=== PATIENT | female | born 1975 | race Caucasian/White ===

== ENCOUNTER → 2017-09-22 05:36 | Outpatient (CLI) | payer OTHER, SELFPAY ==
--- NOTE | 2017-08-12 11:30 | EKG12_ITS ---
Test Reason : PRE OP Blood Pressure : / mmHG Vent. Rate : 102 BPM Atrial Rate : 102 BPM P-R Int : 158 ms QRS Dur : 078 ms QT Int : 334 ms P-R-T Axes : 060 015 049 degrees QTc Int : 435 ms Sinus tachycardia Possible Left atrial enlargement Possible Lateral infarct (cited on or before 19-OCT-2012) Abnormal ECG Confirmed by SUGAR BARONE ([id number]), video editor JAMAL ADAMS ([id number]) on 08/13/2017 11:38:07 AM Referred By: Irvin Montague Confirmed By:SUGAR BARONE
== END ==
PROVIDERS: Family Provider Internal Medicine; PCP Internal Medicine; Visit Provider Podiatrist
DX: Z01.810 Encounter for preprocedural cardiovascular examination (principal); R00.0 Tachycardia, unspecified; R94.31 Abnormal electrocardiogram [ECG] [EKG]
CPT/HCPCS: 93005

== ENCOUNTER 2018-05-04 13:19 | Emergency (ER) | payer OTHER, SELFPAY ==
[2018-05-04 13:19] VITALS: BP 168/92; PULSE 131; RESP 22; TEMP 36.5; O2SAT 96; BMI 32.5
[2018-05-04 13:27] VITALS: PULSE 125; RESP 26; O2SAT 95
[2018-05-04 13:29] VITALS: O2SAT 95
--- NOTE | 2018-05-04 13:55 | EKG12_ITS ---
Test Reason : CP/SOB Blood Pressure : / mmHG Vent. Rate : 123 BPM Atrial Rate : 123 BPM P-R Int : 156 ms QRS Dur : 084 ms QT Int : 314 ms P-R-T Axes : 069 029 043 degrees QTc Int : 449 ms Sinus tachycardia Possible Lateral infarct , age undetermined Inferior infarct , age undetermined Abnormal ECG Confirmed by RAFAEL JASON, JASON ([id number]), marketing editor JAMAL ADAMS ([id number]) on 05/07/2018 1:06:22 PM Referred By: PARVEZ/ALPHONSE Confirmed By:JASON HALL MD
[2018-05-04 14:08] LABS: Absolute Lymphocyte Count 3.04 X10^3/ul (0.83-4.51); Absolute Neutrophil Count 7.4 X10^3/uL (2.0-7.7); Basophil# 0.07 X10^3/uL; Basophil% 0.6 % (0-1); Eosinophil# 0.33 X10^3/uL; Eosinophils% 2.8 % (0-5); Hematocrit 47.3 % (37-47); Hemoglobin 15.7 g/dl (12.0-15.0); Lymphocyte # 3.04 X10^3/ul (4.0); Lymphocyte % 26.3 % (19-41); Mean Corp Hgb Conc 33.2 g/gl (32-36); Mean Corpuscular Hgb 29.1 pg (27.0-32.0); Mean Corpuscular Volume 87.6 fL (81-99); Mean Platelet Vol. 9.8 fl (6.2-12.0); Monocyte# 0.68 X10^3/uL; Monocyte% 5.9 % (0-10); Neutrophil # 7.44 X10^3/uL (2.7-7.7); Neutrophil % 64.2 % (47-70); Platelet Count 272 K/mm3 (150-450); RBC Distribution Width CV 13.4 % (11.6-14.6); RBC Distribution Width SD 42.7 fl (35.1-43.9); White Blood Count 11.6 K/mm3 (4.4-11.0)
[2018-05-04 14:09] LABS: POSITIVE COUNT NO; POSITIVE DIFFERENTIAL NO; POSITIVE MORPHOLOGY NO
[2018-05-04 14:11] LABS: D-Dimer Quantitative (DVT/PE) 0.44 FEU/ug/m (0.27-0.49)
--- NOTE | 2018-05-04 14:15 | RAD_ITS ---
STUDY: X-RAY CHEST REASON FOR EXAM: Female, 42 years old. Dyspnea and shortness of breath. TECHNIQUE: PA and lateral views of the chest. COMPARISON: None. FINDINGS: EKG markings are seen. Increased markings are seen in the lingular segment of the left upper lobe. Early lingular infiltrate should be ruled out. Follow-up is recommended. There is no demonstrated pleural abnormality. Normal size heart. Normal mediastinum and julia. Normal visualized pulmonary arteries. Normal visualized aortic arch and descending thoracic aorta. Normal visualized thoracic spine. Normal visualized ribs, clavicles, and shoulders. There is no demonstrated abnormality of the visualized soft tissue structures of the upper abdomen. RAD/Chest PA and Lateral IMPRESSION: Findings suggestive of early lingular infiltrate. Electronically Signed: Andrés Li MD at 14:57 EDT Tel [phone], Service support ,
[2018-05-04 14:17] LABS: Anion Gap 6 (5-15); BUN 15 mg/dL (7-18); BUN/Creat Ratio 23.7 RATIO (10-20); Calcium,Total 9.9 mg/dL (8.5-10.1); Chloride 103 mmol/L (98-107); Creatinine, Serum 0.63 mg/dL (0.55-1.02); EST Glomerular Filtration Rate 108 mL/min (>60); Est Glom Filt Rate - Afr Amer 131 mL/min (>60); Estimated Creatinine Clearance 110.81 ml/min; Glucose 101 mg/dL (74-106); Potassium 3.6 mmol/L (3.5-5.1); Sodium Level 138 mmol/L (136-145)
--- NOTE | 2018-05-04 14:21 | ED.VISSUMM ---
- ER Visit Summary Date of Service: 05/04/18 Chief Complaint: Shortness of breath and fast heart rate History of Present Illness: The patient is a 42 F who presents with chest pain palpitations and shortness of breath. Patient states that for the past 2-3 months she has had some chest heaviness. She then had some sharp chest pain components to it. She decreased the amount that she was smoking down to half a pack a day. Today she started to feel her heart beating faster while shopping and she got lightheaded. She went to the pharmacy section of the store and took her blood pressure which she states was 137/100 and her heart rate was 124. She states that all the way here she had dry mouth. She states now she feels squeezing in the chest she tried her albuterol inhaler did not get any relief. She states she has had a thyroid test in the past and that has been negative. She denies any recent surgery. beginning last week she did have a cough has been nonproductive. Physical Examination: Afebrile blood pressure 160/92 in triage heart rate of 125 respirations are 26 pulse ox 95% and afebrile. Gen: Well-nourished well-developed Head: Normocephalic atraumatic Eyes: Perrl EOMI ENT: TMs clear no rhinorrhea moist mucous membranes Neck: Supple no lymphadenopathy no JVD nontender CVS: Regular rate and tachycardic rhythm no murmurs normal S1-S2 Respiratory: No distress clear to auscultation bilaterally chest nontender Abdomen: Soft nontender nondistended normal bowel sounds no masses Back: Nontender Extremity: Nontender no edema Skin: Normal color no rash Neuro: alert orientated ?3 CN II-XII intact normal strength sensation reflexes gait cerebellar Psych: Anxious Test Results: EKG shows a sinus rhythm at a rate of 123. White count 11.6. Chemistries are normal. Troponin is negative. D-dimer negative at 0.44. Chest x-ray showed a possible early lingular infiltrate. Emergency Department Course and Treatment: Patient was observed on the monitor. Heart rate is come down to 106. White count is slightly elevated. X-ray shows a possible early lingular infiltrate. A mucous plug would make sense the sudden onset of shortness of breath. It is reasonable to treat her with some azithromycin for atypical pneumonia. Patient also may require Holter monitor or echocardiogram for further cardiac evaluation if her symptoms continue. Return if worsening or concerns Impression: 1. Sinus tachycardia 2. Dyspnea This note was generated with [employer] dictation software. It may contain incorrect words, spelling, and punctuation that were not noted in review of the chart prior to signing ED Disposition - Plan for ED Patient: Disposition: Home or Assisted Living Chief Complaint: Shortness of Breath Instructions: Walking Pneumonia Prescriptions: Azithromycin [Zithromax Z-Bob] 250 mg PO UD #1 box Referrals: Lizeth Whittington DO [Primary Care Provider] - As soon as possible
[2018-05-04 14:55] LABS: Thyroid Stim Hormone (TSH) 1.29 uIU/mL (0.358-3.74)
[2018-05-04 15:02] VITALS: PULSE 107; RESP 14; O2SAT 98
[2018-05-04 15:32] VITALS: BP 142/78; PULSE 83; RESP 16; O2SAT 98
--- NOTE | 2018-05-05 09:48 | CM.ED ---
ED CALLBACK: Follow-up call placed to patient. Patient states she feels the same. She has not yet filled her prescription, but states she is heading to do so right now. Patient states the soonest her PCP can see her is next Thursday. I encouraged her to start the antibiotic as soon as possible. We discussed that it can take a few days for symptoms to begin resolving. Encouraged patient to come back to ED if symptoms worsen and she's unable to see PCP. Patient states understanding.
== END 2018-05-04 15:33 | disposition home or self-care (01) ==
PROVIDERS: Emergency Provider Emergency Medicine; Family Provider Internal Medicine; PCP Internal Medicine
DX: R00.0 Tachycardia, unspecified (principal); R06.00 Dyspnea, unspecified; R91.8 Other nonspecific abnormal finding of lung field; Z86.73 Personal history of transient ischemic attack (TIA), and cerebral infarction without residual deficits; F17.200 Nicotine dependence, unspecified, uncomplicated
CPT/HCPCS: 71046; 80048; 84443; 84484; 85025; 85379; 93005; 99285; A4216

== ENCOUNTER → 2018-05-12 14:07 | Outpatient (CLI) | payer OTHER, SELFPAY ==
--- NOTE | 2018-05-12 14:15 | CT_ITS ---
STUDY: CTA CHEST REASON FOR EXAM: Female, 42 years old. Possible pulmonary embolism. RADIATION DOSAGE (If Supplied By Facility): CTDIvol = ( 14.89 ) mGy, DLP = ( 762.85 ) mGycm TECHNIQUE: The examination was performed with the intravenous administration of 100CC ml of Isovue 370 contrast material. Post-processing of the angiographic images was performed, with multiplanar reformation and 3D reconstruction. Individualized dose optimization techniques were used for this CT. COMPARISON: None. FINDINGS: Nonocclusive intraluminal filling defects are seen in the branches of the both right and upper lobe pulmonary arteries in keeping with the pulmonary embolism. Normal thoracic aorta and visualized great vessels. There is no demonstrated aortic dissection. Normal heart and pericardium. Normal mediastinum. Normal hilar regions. Normal visualized trachea and bronchi. The lungs are well expanded. Normal pulmonary parenchyma. Normal pleura. Normal chest wall structures. There are degenerative changes of thoracic spine. Small sliding hiatal hernia. CT/CTA Chest W/WO Contrast IMPRESSION: Findings incomplete with multiple nonocclusive pulmonary emboli in branches of the right and left upper lobe pulmonary arteries. Electronically Signed: Andrés Li MD at 15:13 EDT Tel [phone], Service support ,
== END ==
PROVIDERS: Family Provider Internal Medicine; PCP Internal Medicine; Referring Provider Internal Medicine; Visit Provider Internal Medicine
DX: R93.89 Abnormal findings on diagnostic imaging of other specified body structures (principal); R42 Dizziness and giddiness
CPT/HCPCS: 71275; 93225; 93226; Q9967

== ENCOUNTER 2018-05-12 19:01 | Emergency (ER) | payer OTHER, SELFPAY ==
[2018-05-12 19:02] VITALS: BP 148/104; BP 172/108; PULSE 115; PULSE 123; RESP 19; TEMP 36.8; O2SAT 96; BMI 34.4
--- NOTE | 2018-05-12 19:23 | EKG12_ITS ---
Test Reason : CP Blood Pressure : / mmHG Vent. Rate : 115 BPM Atrial Rate : 115 BPM P-R Int : 160 ms QRS Dur : 084 ms QT Int : 328 ms P-R-T Axes : 062 025 037 degrees QTc Int : 453 ms Sinus tachycardia Possible Anterolateral infarct , age undetermined Abnormal ECG Confirmed by MEHUL JASON, RIMA ([id number]), editorial intern JAMAL ADAMS ([id number]) on 05/19/2018 2:25:35 PM Referred By: Lizeth Whittington Confirmed By:RIMA CARVER MD
--- NOTE | 2018-05-12 19:28 | US_ITS ---
STUDY: VENOUS DOPPLER ULTRASOUND - BILATERAL LOWER EXTREMITIES REASON FOR EXAM: Female, 42 years old. PE, chest pain TECHNIQUE: Ultrasound evaluation of the deep vein system to include chambers-scale imaging and compression was performed. Chambers-scale imaging and Doppler sonographic evaluation, including duplex spectral analysis and qualitative color flow sonography, was performed. COMPARISON: None. FINDINGS: RIGHT LEG Common Femoral Vein: Normal compression, spontaneity and augmentation. Normal color Doppler. Common Femoral Vein/Greater Saphenous Junction: Normal compression. Femoral Proximal: Normal compression. Femoral Middle: Normal compression, spontaneity and augmentation. Normal color Doppler. Femoral Distal: Normal compression. Popliteal Vein: Normal compression, spontaneity and augmentation. Normal color Doppler. Posterior Tibial Vein: Normal compression. Peroneal Vein: Normal compression. LEFT LEG Common Femoral Vein: Normal compression, spontaneity and augmentation. Normal color Doppler. Common Femoral Vein/Greater Saphenous Junction: Normal compression. Femoral Proximal: Normal compression. Femoral Middle: Normal compression, spontaneity and augmentation. Normal color Doppler. Femoral Distal: Normal compression. Popliteal Vein: Normal compression, spontaneity and augmentation. Normal color Doppler. Posterior Tibial Vein: Normal compression. Peroneal Vein: Normal compression. US/Venous Duplex Imag/Mariusz Extrem IMPRESSION: Normal venous Doppler ultrasound of the bilateral lower extremities. Electronically Signed: Nasir Coppola DO at 20:15 EDT Tel [phone], Service support ,
[2018-05-12 19:31] VITALS: O2SAT 94
[2018-05-12 19:39] LABS: Absolute Lymphocyte Count 3.67 X10^3/ul (0.83-4.51); Absolute Neutrophil Count 9.8 X10^3/uL (2.0-7.7); Basophil# 0.06 X10^3/uL; Basophil% 0.4 % (0-1); Eosinophil# 0.31 X10^3/uL; Eosinophils% 2.1 % (0-5); Hematocrit 45.3 % (37-47); Hemoglobin 15.3 g/dl (12.0-15.0); Lymphocyte # 3.67 X10^3/ul (4.0); Lymphocyte % 24.9 % (19-41); Mean Corp Hgb Conc 33.8 g/gl (32-36); Mean Corpuscular Hgb 29.4 pg (27.0-32.0); Mean Corpuscular Volume 86.9 fL (81-99); Mean Platelet Vol. 9.9 fl (6.2-12.0); Monocyte# 0.83 X10^3/uL; Monocyte% 5.6 % (0-10); Neutrophil # 9.81 X10^3/uL (2.7-7.7); Neutrophil % 66.8 % (47-70); POSITIVE COUNT NO; POSITIVE DIFFERENTIAL NO; POSITIVE MORPHOLOGY NO; Platelet Count 275 K/mm3 (150-450); RBC Distribution Width CV 13.2 % (11.6-14.6); RBC Distribution Width SD 41.7 fl (35.1-43.9); Red Blood Count 5.21 M/mm3 (4.2-5.4); White Blood Count 14.7 K/mm3 (4.4-11.0)
[2018-05-12 19:40] LABS: International Normalized Ratio 0.9; Prothrombin Time (Protime)PT. 12.6 SECONDS (11.7-14.9)
[2018-05-12 19:41] LABS: Partial Thromboplast Time 35.2 Seconds (24.1-36.2)
[2018-05-12 19:50] LABS: Anion Gap 9 (5-15); BUN 12 mg/dL (7-18); BUN/Creat Ratio 21.4 RATIO (10-20); Calcium,Total 9.2 mg/dL (8.5-10.1); Chloride 105 mmol/L (98-107); Creatinine, Serum 0.56 mg/dL (0.55-1.02); EST Glomerular Filtration Rate 125 mL/min (>60); Est Glom Filt Rate - Afr Amer 151 mL/min (>60); Estimated Creatinine Clearance 120.01 ml/min; Glucose 107 mg/dL (74-106); Potassium 3.7 mmol/L (3.5-5.1); Sodium Level 140 mmol/L (136-145)
[2018-05-12 19:58] LABS: Pregnancy, Serum, hCG Quali. NEGATIVE Negative (0-9 Nonpreg)
[2018-05-12 20:13] VITALS: BP 149/99; PULSE 105; RESP 18; O2SAT 94
[2018-05-12 21:55] VITALS: BP 143/93; PULSE 103; RESP 18; O2SAT 93
--- NOTE | 2018-05-12 21:55 | ED.VISSUMM ---
- ER Visit Summary Date of Service: 05/12/18 Chief Complaint: PE History of Present Illness: The patient is a 42 F referred by her PCP for bilateral pulmonary emboli. Patient was seen for chest pain and shortness of breath. She had a CTA done today. Based on the results, she was referred directly to the emergency department. She does have some chest tightness and mild shortness of breath. She has a history of MS, fibromyalgia, and Coy's disease. She is a smoker. Denies hormone medications. Denies recent surgery or immobilization. Denies any history of PE or DVT. Physical Examination: Blood pressure 149/99. Heart rate 105. Afebrile. No acute distress. Sitting and breathing comfortably. Heart tachycardic but regular. Lungs clear. Abdomen soft. Calves soft and supple. Test Results: EKG showed sinus rhythm at a rate of 115. Ultrasound of her lower extremities showed nothing acute. White count 14.7. Glucose 107. Coags normal. Troponin normal. Previous test negative. Emergency Department Course and Treatment: Patient was discussed with Dr. Whittington. Patient would like to go home. I believe she is appropriate for outpatient therapy and her PCP agreed. PESI is very low risk. Her PCP recommended treatment with Eliquis. She has an echocardiogram scheduled for tomorrow. Her vitals are tachycardic but otherwise normal. Risks of PE were discussed. Patient will return for new or worsening issues. Risks of bleeding were discussed. She will not take part in any risky activities. No anti-inflammatories. Return right away for trauma or any bleeding. Treatment Plan: As above Disposition: Discharged Impression: 1. Bilateral pulmonary emboli This note was generated with [employer] dictation software. It may contain incorrect words, spelling, and punctuation that were not noted in review of the chart prior to signing ED Disposition - Plan for ED Patient: Chief Complaint: Chest Pain Referrals: Lizeth Whittington DO [Primary Care Provider] -
--- NOTE | 2018-05-12 21:58 | ED.DCSUM_ITS ---
- ER Visit Summary Date of Service: 05/12/18 Chief Complaint: PE History of Present Illness: The patient is a 42 F referred by her PCP for bilateral pulmonary emboli. Patient was seen for chest pain and shortness of breath. She had a CTA done today. Based on the results, she was referred directly to the emergency department. She does have some chest tightness and mild shortness of breath. She has a history of MS, fibromyalgia, and Coy's disease. She is a smoker. Denies hormone medications. Denies recent surgery or immobilization. Denies any history of PE or DVT. Physical Examination: Blood pressure 149/99. Heart rate 105. Afebrile. No acute distress. Sitting and breathing comfortably. Heart tachycardic but regular. Lungs clear. Abdomen soft. Calves soft and supple. Test Results: EKG showed sinus rhythm at a rate of 115. Ultrasound of her lower extremities showed nothing acute. White count 14.7. Glucose 107. Coags normal. Troponin normal. Previous test negative. Emergency Department Course and Treatment: Patient was discussed with Dr. Whititngton. Patient would like to go home. I believe she is appropriate for outpatient therapy and her PCP agreed. PESI is very low risk. Her PCP recommended treatment with Eliquis. She has an echocardiogram scheduled for tomorrow. Her vitals are tachycardic but otherwise normal. Risks of PE were discussed. Patient will return for new or worsening issues. Risks of bleeding were discussed. She will not take part in any risky activities. No anti- inflammatories. Return right away for trauma or any bleeding. Treatment Plan: As above Disposition: Discharged Impression: 1. Bilateral pulmonary emboli This note was generated with [employer] dictation software. It may contain incorrect words, spelling, and punctuation that were not noted in review of the chart prior to signing ED Disposition - Plan for ED Patient: Chief Complaint: Chest Pain Referrals: Lizeth Whittington DO [Primary Care Provider] -
--- NOTE | 2018-05-12 21:58 | ED.DEP ---
ED Disposition - Plan for ED Patient: Chief Complaint: Chest Pain Instructions: Pulmonary Embolism Prescriptions: Apixaban [Eliquis] 10 mg PO BID 7 Days #74 tab Referrals: Lizeth Whittington DO [Primary Care Provider] -
[2018-05-12 22:07] VITALS: BP 144/90; PULSE 106; RESP 20; O2SAT 97
[2018-05-12] MEDS: APIXABAN 5 MG TABLET 10 MG PO (22:11)
== END 2018-05-12 22:14 | disposition home or self-care (01) ==
LOC: ED 19:32
PROVIDERS: Emergency Provider Emergency Medicine; Family Provider Internal Medicine; PCP Internal Medicine
DX: I26.99 Other pulmonary embolism without acute cor pulmonale (principal); G35 Multiple sclerosis; M79.7 Fibromyalgia; E27.1 Primary adrenocortical insufficiency; F17.210 Nicotine dependence, cigarettes, uncomplicated
CPT/HCPCS: 80048; 84484; 84703; 85025; 85610; 85730; 93005; 93970; 99285; A4216

== ENCOUNTER → 2018-05-13 11:00 | Outpatient (CLI) | payer OTHER, SELFPAY ==
--- NOTE | 2018-05-13 11:02 | ECHOCS_ITS ---
Reason For Study: Murmur Procedure This was a 2D Doppler, Color Flow transthoracic echocardiogram. The study was technically limited. Contrast injection was performed. Exam performed in department. Left Ventricle Normal LV size. Mild concentric left ventricular hypertrophy. Left ventricular systolic function is hyperdynamic. The estimated ejection fraction is 75 %. No evidence for diastolic dysfunction. No regional wall motion abnormalities noted. Right Ventricle Normal RV size. Normal systolic function. Atria Normal left atrium. Normal right atrium. No doppler evidence for ASD. Bubble contrast study negative for right to left interatrial shunt. Mitral Valve There is no mitral annular calcification. Normal mitral valve. Trivial mitral valve insufficiency. Tricuspid Valve Normal tricuspid valve. Trivial tricuspid valve insufficiency. Unable to estimate RV systolic pressure/pulmonary artery pressure due to technically difficult study. Aortic Valve Trisinus/trileaflet aortic valve. Mild focal aortic valve thickening. Pulmonic Valve The pulmonic valve is not well visualized. Trivial pulmonic valve insufficiency. Great Vessels Normal sized aortic root. Pericardium/Pleural No pericardial effusion. Medication 22 gauge I.V. with prn adaptor inserted into right arm. Diluted definity 2ml given slow IV push to enhance endocardial definition. Performed a rapid injection of agitated mix of 9 cc saline and 1cc air to assess for atrial septal defect. MMode/2D Measurements & Calculations LVIDd: 3.5 cm IVSd: 1.4 cm Ao root diam: 3.1 cm LVIDs: 2.2 cm LVPWd: 1.4 cm FS: 37.4 % LAV(MOD-bp): 57.7 ml LVAd ap4: 25.4 cm2 SV(MOD-sp4): 57.0 ml LAV(MOD-bp) Indexed: 28.7 ml/m2 EDV(MOD-sp4): 72.1 ml LAV(MOD-sp2): 63.7 ml EDV(sp4-el): 72.9 ml LAV(MOD-sp4): 51.6 ml LVAs ap4: 9.4 cm2 ESV(MOD-sp4): 15.2 ml ESV(sp4-el): 14.8 ml EF(MOD-sp4): 79.0 % EF(sp4-el): 79.7 % SV(sp4-el): 58.1 ml LA A4 area: 18.3 cm2 RA A4 area: 13.8 cm2 Time Measurements MV dec time: 0.18 sec Doppler Measurements & Calculations MV E max gonzález: 71.2 cm/sec Lat Peak E' González: 12.4 cm/sec Med Peak E' González: 7.3 cm/sec MV A max gonzález: 71.2 cm/sec E/E' lat: 5.8 E/E' med: 9.7 MV E/A: 1.0 MV V2 max: 93.8 cm/sec MV P1/2t max gonzález: 92.5 cm/sec Ao V2 max: 172.7 cm/sec MV max P.5 mmHg MV P1/2t: 43.0 msec Ao max P.9 mmHg MV V2 mean: 55.6 cm/sec MV dec slope: 630.1 cm/sec2 Ao V2 mean: 120.8 cm/sec MV mean P.5 mmHg MVA(P1/2t): 5.1 cm2 Ao mean P.6 mmHg MV V2 VTI: 16.6 cm Ao V2 VTI: 32.7 cm LV V1 max: 162.9 cm/sec PA V2 max: 131.9 cm/sec LV V1 max P.6 mmHg LV V1 mean P.6 mmHg LV V1 mean: 98.9 cm/sec LV V1 VTI: 30.2 cm Interpretation Summary The study was technically limited. Contrast injection was performed. Left ventricular systolic function is hyperdynamic. The estimated ejection fraction is 75 %. Mild concentric left ventricular hypertrophy. Trivial mitral valve insufficiency. Trivial tricuspid valve insufficiency. Mild focal aortic valve thickening. Trivial pulmonic valve insufficiency. Unable to estimate RV systolic pressure/pulmonary artery pressure due to technically difficult study. No evidence for diastolic dysfunction. Bubble contrast study negative for right to left interatrial shunt. Ordering Physician: Lizeth Whittington Referring Physician: Lizeth Whittington Performed By: Greg Juarez RCS
== END ==
LOC: CVS 11:01
PROVIDERS: Family Provider Internal Medicine; PCP Internal Medicine; Referring Provider Internal Medicine; Visit Provider Internal Medicine
DX: R01.1 Cardiac murmur, unspecified (principal)
CPT/HCPCS: 93306; Q9957; A4216; C8929

== ENCOUNTER → 2018-05-28 11:54 | Outpatient (CLI) | payer OTHER, SELFPAY ==
--- NOTE | 2018-05-28 12:03 | BI_ITS ---
MAMMOGRAPHY - BILATERAL SCREENING REASON FOR EXAM: Female, 42 years old. Routine annual screening examination. PERTINENT HISTORY: Aunts with breast cancer. TECHNIQUE: Digital bilateral breast colby (3D mammographic acquisition) in the CC and MLO projections. 2-D mediolateral oblique (MLO) and craniocaudad (CC) views of both breasts were obtained. CAD: Full Field Digital Mammography with Computer Added Detection was performed. COMPARISON: Comparison is made with prior study dated October 23, 2014. FINDINGS: Breast Composition: The breasts are almost entirely fatty. There are no dominant masses or suspicious calcifications. Stable small benign-appearing bilateral axillary lymph nodes. No other significant abnormalities are identified. There has been no significant change since the prior study. BI/SCREENING MAMM (CAD), BILAT IMPRESSION: Stable bilateral screening mammogram. Yearly follow-up mammogram recommended. (A) ASSESSMENT CATEGORY: BIRADS Category 2: Benign. A letter regarding these results will be sent to the patient by the facility within 30 days. Approximately 10% of breast cancers are not detected by mammography. A normal mammogram should not delay biopsy of a clinically suspicious abnormality. [id number] Electronically Signed: Andrés Li MD at 12:44 EST Tel [phone], Service support ,
== END ==
LOC: OPBI 11:55
PROVIDERS: Family Provider Internal Medicine; PCP Internal Medicine; Referring Provider Internal Medicine; Visit Provider Internal Medicine
DX: Z12.31 Encounter for screening mammogram for malignant neoplasm of breast (principal)
CPT/HCPCS: 77063; 77067

== ENCOUNTER → 2018-05-31 16:05 | Outpatient (CLI) | payer OTHER, SELFPAY ==
[2018-05-12 19:02] VITALS: BMI 34.4
--- NOTE | 2018-05-31 16:11 | RAD_ITS ---
STUDY: X-RAY CHEST REASON FOR EXAM: Female, 42 years old. Cough TECHNIQUE: 2 views COMPARISON: 05/04/2018 FINDINGS: The lungs are clear and expanded. There is no demonstrated pleural abnormality. Normal size heart. Normal mediastinum and julia. Normal visualized pulmonary arteries. Normal visualized aortic arch and descending thoracic aorta. Normal visualized thoracic spine. Normal visualized ribs, clavicles, and shoulders. There is no demonstrated abnormality of the visualized soft tissue structures of the upper abdomen. RAD/Chest PA and Lateral IMPRESSION: Normal x-ray examination of the chest. No acute findings in the lungs Electronically Signed: Jose Meade MD at 6:59 EST Tel , Service support ,
== END ==
LOC: MTRAD 16:06
PROVIDERS: Family Provider Internal Medicine; PCP Internal Medicine; Referring Provider Nurse Practitioner Gerontology; Visit Provider Nurse Practitioner Gerontology
DX: R05 Cough (principal)
CPT/HCPCS: 71046

== ENCOUNTER 2018-06-26 20:36 | Observation (INO) | payer OTHER, SELFPAY ==
[2018-06-26 20:36] VITALS: BP 132/83; PULSE 75; RESP 18; TEMP 36.3; O2SAT 96; BMI 35.8
[2018-06-26 21:02] VITALS: BP 125/80; PULSE 70; RESP 14; O2SAT 96
--- NOTE | 2018-06-26 21:34 | RAD_ITS ---
STUDY: X-RAY CHEST REASON FOR EXAM: Female, 42 years old. Chest pain, lower extremity edema TECHNIQUE: AP COMPARISON: 05/31/2018 FINDINGS: The lungs are clear and expanded. There is no demonstrated pleural abnormality. Normal size heart. Normal mediastinum and julia. Normal visualized pulmonary arteries. Normal visualized aortic arch and descending thoracic aorta. No acute bony process. There is no demonstrated abnormality of the visualized soft tissue structures of the upper abdomen. RAD/Chest 1 View (Portable) IMPRESSION: Stable, nonacute portable x-ray examination of the chest. Electronically Signed: Nik Ferrell MD at 21:58 EST , Service support ,
--- NOTE | 2018-06-26 21:34 | EKG12_ITS ---
Test Reason : LEG PAIN Blood Pressure : / mmHG Vent. Rate : 076 BPM Atrial Rate : 076 BPM P-R Int : 172 ms QRS Dur : 090 ms QT Int : 416 ms P-R-T Axes : 064 035 047 degrees QTc Int : 468 ms Normal sinus rhythm Possible Left atrial enlargement Possible Lateral infarct , age undetermined Inferior infarct , age undetermined Abnormal ECG Confirmed by MEHUL JASON, RIMA ([id number]), supervising editor trailer JAMAL ADAMS ([id number]) on 06/30/2018 3:31:13 PM Referred By: CARMEN Confirmed By:RIMA CARVER MD
[2018-06-26] MEDS: Aspirin 325 MG Tablet PO (21:51)
--- NOTE | 2018-06-26 22:15 | ED.DCSUM_ITS ---
- ER Visit Summary Date of Service: 06/26/18 Chief Complaint: Left lower extremity pain History of Present Illness: The patient is a 42 F presenting with left lower extremity pain. She states this started yesterday. She has pain in the back of her left thigh. She does not recall any injury. She also notes she has had intermittent chest pain and shortness of breath with exertion over the past 1.5 weeks. She has a history of bilateral PE in April. She was started on Eliquis at that time. Physical Examination: Vitals are stable. Patient is afebrile. Alert no acute distress. HEENT exam is unremarkable. Neck is supple. Lungs are clear and equal bilaterally. Heart is regular rate and rhythm. Abdomen is soft nontender nondistended. Extremities are unremarkable. Skin is warm and dry. No focal neurologic deficit. Remainder of exam is unremarkable. Emergency Department Course and Treatment: EKG is sinus rate 76, unchanged from previous. Chest x-ray shows no acute process. Patient states she had an allergic reaction to CTA of her chest which caused her throat to close. She does not recall the entire incident. While in the emergency department her pulse ox has decreased to 87-88% on room air. We are unable to obtain an ultrasound at this time of day. CBC, chemistries unremarkable. Troponin is negative. Due to her hypoxia, inability to obtain CTA or ultrasound at this time, will discuss with hospitalist for observation for VQ scan. Disposition: Observation Impression: Chest pain, hypoxia, history of PE This note was generated with [employer] dictation software. It may contain incorrect words, spelling, and punctuation that were not noted in review of the chart prior to signing ED Disposition - Plan for ED Patient: Chief Complaint: Lower Extremity Injury Referrals: Lizeth Whittington DO [Primary Care Provider] -
[2018-06-26 22:27] LABS: Absolute Neutrophil Count 4.2 X10^3/uL (2.0-7.7); Basophil# 0.07 X10^3/uL; Basophil% 0.8 % (0-1); Eosinophil# 0.34 X10^3/uL; Eosinophils% 4.1 % (0-5); Hematocrit 40.4 % (37-47); Hemoglobin 13.4 g/dl (12.0-15.0); Lymphocyte % 35.1 % (19-41); Mean Corp Hgb Conc 33.2 g/gl (32-36); Mean Corpuscular Hgb 28.8 pg (27.0-32.0); Mean Corpuscular Volume 86.9 fL (81-99); Mean Platelet Vol. 9.4 fl (6.2-12.0); Monocyte# 0.76 X10^3/uL; Monocyte% 9.2 % (0-10); Neutrophil # 4.19 X10^3/uL (2.7-7.7); Neutrophil % 50.7 % (47-70); Platelet Count 263 K/mm3 (150-450); RBC Distribution Width CV 12.9 % (11.6-14.6); RBC Distribution Width SD 41.4 fl (35.1-43.9); Red Blood Count 4.65 M/mm3 (4.2-5.4); White Blood Count 8.3 K/mm3 (4.4-11.0)
[2018-06-26 22:29] LABS: POSITIVE COUNT NO; POSITIVE DIFFERENTIAL NO; POSITIVE MORPHOLOGY NO
[2018-06-26 22:34] LABS: Anion Gap 9 (5-15); BUN 15 mg/dL (7-18); BUN/Creat Ratio 25.6 RATIO (10-20); Calcium,Total 8.8 mg/dL (8.5-10.1); Chloride 108 mmol/L (98-107); Creatinine, Serum 0.59 mg/dL (0.55-1.02); EST Glomerular Filtration Rate 118 mL/min (>60); Est Glom Filt Rate - Afr Amer 143 mL/min (>60); Estimated Creatinine Clearance 113.91 ml/min; Glucose 105 mg/dL (74-106); Potassium 3.5 mmol/L (3.5-5.1); Sodium Level 144 mmol/L (136-145)
[2018-06-27] VITALS (12 sets, daily range): BP systolic 118–139; BP diastolic 74–84; PULSE 65–91; RESP 14–18; TEMP 36.3–36.8; O2SAT 93–98; BMI 35.4
--- NOTE | 2018-06-27 02:59 | EKG12_ITS ---
Test Reason : ADM EKG Blood Pressure : / mmHG Vent. Rate : 075 BPM Atrial Rate : 075 BPM P-R Int : 166 ms QRS Dur : 088 ms QT Int : 416 ms P-R-T Axes : 059 015 056 degrees QTc Int : 464 ms Normal sinus rhythm Possible Lateral infarct (cited on or before 19-OCT-2012) Inferior infarct , age undetermined Abnormal ECG When compared with ECG of 12-MAY-2018 19:10, Vent. rate has decreased BY 40 BPM Questionable change in initial forces of Anterior leads Confirmed by MEHUL JASON, RIMA ([id number]), editorial project manager JAMAL ADAMS ([id number]) on 06/30/2018 4:00:29 PM Referred By: CLAUDIA Confirmed By:RIMA CARVER MD
--- NOTE | 2018-06-27 05:22 | HP.PCM_ITS ---
Problem List (1) Pulmonary emboli Status: Acute (2) Left leg pain Status: Acute (3) Chest pain Status: Acute History of Present Illness Date of Admission: 06/27/18 Chief Complaint: Left leg pain The patient is a 42 year old female w/ h/o PE is admitted for left leg pain. She has sudden onset of left upper thigh pain that started today. Pain is moderate and constant. Pain is dull aching and is not associated with movement. No h/o injury. Nothing improved or worsened her pain. She also noted occasional chest pain and SOB in the past 2 weeks. Nothing makes her chest pain worse or better. Her chest pain is not associated with exertion. Past Medical History Allergies acetaminophen [From Tylenol] Allergy (Verified 06/26/18 20:40) Anaphylaxis latex Allergy (Verified 06/26/18 20:40) Rash sulfamethoxazole [From Bactrim] Allergy (Verified 06/26/18 20:40) Hives trimethoprim [From Bactrim] Allergy (Verified 06/26/18 20:40) Hives Iodinated Contrast- Oral and IV Dye [CONTRASTS] Adverse Reaction (Verified 06/26/18 20:40) Other sodium phenothol Allergy (Uncoded 06/26/18 20:40) Anaphylaxis Home Medications: Ambulatory Orders Medication Instructions Recorded Multivitamin [Multiple Vitamins] 1 tab PO DAILY 05/12/18 Apixaban [Eliquis] 1 tab PO BID 06/26/18 Lives: Spouse/ Significant Other Smoking Status: Former smoker Tobacco Use: Non-smoker Alcohol: None Drugs: None Review of Systems Constitutional: Denies: Chills, Fever, Weight Change HEENT: Denies: Head Aches, Sinus Congestion, Sinus Drainage Cardiovascular: Reports: Chest Pain. Denies: Palpitations Respiratory: Denies: Cough, Shortness of breath at rest, Sputum production Gastrointestinal: Denies: Abdominal Pain, Nausea, Vomiting Genitourinary: Denies: Dysuria Musculoskeletal: Denies: Joint Pain, Joint Tenderness Skin: Denies: Rash, Wounds Neurological: Denies: Numbness, Tingling, Focal weakness Psychiatric: Denies: Anxiety, Depression, Homicidal Ideations, Suicidal Ideations Hematologic/ Lymphatic: Denies: Easy Bruising, Easy Bleeding VTE Information - Inpt Only VTE Present on Admission: No VTE Mechan Device Prophylaxis: SCD's VTE Pharm Prophylaxis ordered?: Yes Patient Problems: Active and Suspected Problems Pulmonary emboli (Acute) Left leg pain (Acute) Chest pain (Acute) - Physical Exam General: Alert, Oriented x3, Cooperative HEENT: Atraumatic, PERRLA, EOMI, Normocephalic Neck: Supple, No JVD, Negative Carotid Bruits Lungs: Clear to auscultation, Normal air movement Cardiovascular: Regular rate, No murmurs Abdomen: Bowel Sounds Present, Soft, Non Tender Extremities: No edema, Capillary Refill Less than 3 Seconds Skin: No rashes, No breakdown Musculoskeletal: No Tenderness to Palpation of Joints or Extremities Neurological: Cranial nerves II-XII grossly intact Psych/Mental Status: Normal Affect, Appropriate Vital Signs Temp Pulse Resp BP Pulse Ox 97.4 F L 78 18 127/82 H 93 06/27/18 01:37 06/27/18 03:07 06/27/18 01:37 06/27/18 01:37 06/27/18 01:37 Oxygen Delivery Method Room Air Weight: 99.4 kg Body Mass Index (BMI) 35.4 Laboratory Tests Past 24 Hrs 06/26/18 06/26/18 06/27/18 22:10 22:10 03:15 WBC 8.3 RBC 4.65 Hgb 13.4 Hct 40.4 MCV 86.9 MCH 28.8 MCHC 33.2 RDW 12.9 RDW Differential 41.4 Plt Count 263 MPV 9.4 Immature Gran % (Auto) 0.100 Neut % (Auto) 50.7 Lymph % (Auto) 35.1 [place] % (Auto) 9.2 Eos % (Auto) 4.1 Baso % (Auto) 0.8 Absolute Neuts (auto) 4.2 Absolute Lymphs (auto) 2.90 Total Counted Not Reportable Sodium 144 Potassium 3.5 Chloride 108 H Carbon Dioxide 27.0 Anion Gap 9 BUN 15 Creatinine 0.59 Estim Creat Clear Calc 113.91 Est GFR (MDRD) Af Amer 143 Est GFR (MDRD) Non-Af 118 BUN/Creatinine Ratio 25.6 H Glucose 105 Calcium 8.8 Troponin I < 0.015 < 0.015 Assessment/Plan All Active Problems Pulmonary emboli (Acute) Left leg pain (Acute) Chest pain (Acute) 42 year old female w/ h/o PE is admitted for left leg pain. 1) Left leg pain: Will r/o DVT. Will get doppler. Supportive care. 2) Chest pain: Likely MSK. Will get serial trops. Will also get ECHO given h/o PE to r/o right heart strain. 3) H/o PE: Will resume eliquis. If DVT, will consider transition to coumadin. Code Visit OBSV E&M: 95765 Initial observation care L2
--- NOTE | 2018-06-27 05:34 | VDLE_ITS ---
Reason For Study: PULM EMB RIGHT LEFT GSV is normal. GSV is normal. CFV is compressible, spontaneous, phasic, CFV is compressible, spontaneous, phasic, competent and demonstrates normal competent, and demonstrates normal augmentation. augmentation. FV is compressible, spontaneous, phasic, FV is compressible, spontaneous, phasic, competent and demonstrates normal competent and demonstrates normal augmentation. augmentation. POP V is compressible, spontaneous, phasic, POP V is compressible, spontaneous, phasic, competent and demonstrates normal competent and demonstrates normal augmentation. augmentation. T/P Trunk is compressible. T/P Trunk is compressible. PTV is compressible. PTV is compressible. RT PerV is compressible. LT PerV is compressible. Procedure Exam performed portable in patient room. A preliminary report was called and/or faxed to [facility]. Interpretation Summary Deep veins of the lower extremities are bilaterally patent and compressible segmentally. There is no evidence of deep vein thrombosis on either side. Valvular competence appears intact within the proximal deep venous systems bilaterally. The greater saphenous veins appear bilaterally patent and compressible segmentally. Ordering Physician: Peewee Echevarria Referring Physician: CHERELLE WILKS Performed By: Palak Ramírez, STELLA, RVT
[2018-06-27 06:34] LABS: Anion Gap 7 (5-15); BUN 11 mg/dL (7-18); BUN/Creat Ratio 23.3 RATIO (10-20); Chloride 109 mmol/L (98-107); Creatinine, Serum 0.47 mg/dL (0.55-1.02); EST Glomerular Filtration Rate 151 mL/min (>60); Est Glom Filt Rate - Afr Amer 183 mL/min (>60); Estimated Creatinine Clearance 142.99 ml/min; Glucose 106 mg/dL (74-106); Potassium 4.1 mmol/L (3.5-5.1); Sodium Level 142 mmol/L (136-145)
[2018-06-27] MEDS: Multivitamins,Therapeutic Tablet 1 TABLET PO (08:41)
[2018-06-27] MEDS: APIXABAN 5 MG TABLET PO ×2 (08:41→21:27)
--- NOTE | 2018-06-27 12:58 | PCM.PN.HOSP ---
Patient Problems: Active and Suspected Problems Pulmonary emboli (Acute) Left leg pain (Acute) Chest pain (Acute) Subjective: Patient was seen and examined. Denies any complains. Waiting on doppler USG of legs and V/Q scan. Reported negative experience with CTA chest Vitals/I&O's: Vital Signs Temp Pulse Resp BP Pulse Ox 97.9 F 90 14 123/75 H 95 06/27/18 08:35 06/27/18 11:00 06/27/18 08:35 06/27/18 08:35 06/27/18 08:35 Oxygen Delivery Method Room Air Weight: 99.4 kg Body Mass Index (BMI) 35.4 Intake and Output for Last 24 Hours 06/25/18 06/26/18 06/27/18 23:59 23:59 23:59 Intake Total 240 / 240 Balance 240 / 240 General: Alert, Oriented x3, Cooperative HEENT: Atraumatic, PERRLA, EOMI, Normocephalic Oral: Moist Mucosa Neck: Supple, No JVD, Negative Carotid Bruits Lungs: Clear to auscultation, Normal air movement Cardiovascular: Regular rate, Regular Rhythm, Normal S1, Normal S2, No murmurs Abdomen: Bowel Sounds Present, Soft, Non Tender, Non-Distended, No Hepato-splenomegaly Extremities: No edema Skin: No rashes, No breakdown Musculoskeletal: No Tenderness to Palpation of Joints or Extremities Lymphatic: No Cervical, Supraclavicular, or Inguinal Adenopathy Neurological: Cranial nerves II-XII grossly intact Psych/Mental Status: Normal Affect, Appropriate Laboratory Results 06/26/18 22:10: WBC 8.3, RBC 4.65, Hgb 13.4, Hct 40.4, MCV 86.9, MCH 28.8, MCHC 33.2, RDW 12.9, RDW Differential 41.4, Plt Count 263, MPV 9.4, Immature Gran % (Auto) 0.100, Neut % (Auto) 50.7, Lymph % (Auto) 35.1, [place] % (Auto) 9.2, Eos % (Auto) 4.1, Baso % (Auto) 0.8, Absolute Neuts (auto) 4.2, Absolute Lymphs (auto) 2.90, Total Counted Not Reportable 06/26/18 22:10: Sodium 144, Potassium 3.5, Chloride 108 H, Carbon Dioxide 27.0, Anion Gap 9, BUN 15, Creatinine 0.59, Estim Creat Clear Calc 113.91, Est GFR (MDRD) Af Amer 143, Est GFR (MDRD) Non-Af 118, BUN/Creatinine Ratio 25.6 H, Glucose 105, Calcium 8.8, Troponin I < 0.015 06/27/18 03:15: Troponin I < 0.015 06/27/18 06:00: Troponin I < 0.015 06/27/18 06:00: Sodium 142, Potassium 4.1, Chloride 109 H, Carbon Dioxide 26.0, Anion Gap 7, BUN 11, Creatinine 0.47 L, Estim Creat Clear Calc 142.99, Est GFR (MDRD) Af Amer 183, Est GFR (MDRD) Non-Af 151, BUN/Creatinine Ratio 23.3 H, Glucose 106, Calcium 9.0 06/27/18 08:42: Troponin I < 0.015 Current Medications Apixaban (Eliquis) 5 mg PO BID [facility] Last Admin: 06/27/18 08:41 Dose: 5 mg Magnesium Hydroxide (Milk Of Magnesia) 30 ml PO DAILY PRN PRN Reason: Constipation Multivitamins (Multivitamin) 1 tablet PO DAILYCM [facility] Last Admin: 06/27/18 08:41 Dose: 1 tablet Sodium Chloride () 5 - 15 ml IV UD PRN PRN Reason: SALINE FLUSH Medical Necessity - Tobacco Use Smoking Status: Former smoker Tobacco Use: Non-smoker Assessment/Plan All Active Problems Pulmonary emboli (Acute) Left leg pain (Acute) Chest pain (Acute) 42-year-old with history of bilateral PE, diagnosed in April, on Eliquis who comes in with complaints of left lower extremity pain and hypoxia. 1. Left lower extremity pain, patient with history of bilateral PE, unprovoked, Doppler ultrasound could not be done, D-dimer is 0.32. She had a negative d-dimer but ended up still having PEs Continue on Eliquis for now, doppler ultrasound tomorrow, may consider other novel anticoagulant like Pradaxa or Lovenox if patient is positive for DVT 2. Bilateral PE, VQ scan pending for tomorrow 3. DVT PPx- On Eliquis Code Visit Inpatient E&M: 80133 Subs Hosp L2
--- NOTE | 2018-06-27 13:08 | NURSING ---
this RN rounding on pt. pt and pt's state they are very frustrated that tests will not be done until thursday and asking if they should just go home. this RN verbalized understanding of frustration and educated pt on AMA policy. this RN instructed pt and pt's on risks associated with leaving AMA. Pt and pt's verbalize understanding and state they will stay for tests on thursday.
[2018-06-27 14:47] LABS: D-Dimer Quantitative (DVT/PE) 0.32 FEU/ug/m (0.27-0.49)
[2018-06-27] MEDS: Acetaminophen 325 MG Tablet 650 MG PO (21:26)
[2018-06-28 03:00] VITALS: PULSE 67
[2018-06-28] MEDS: Acetaminophen 325 MG Tablet 650 MG PO (03:39)
[2018-06-28 03:42] VITALS: BP 131/73; PULSE 78; RESP 16; TEMP 36.9; O2SAT 95
[2018-06-28 06:51] LABS: Absolute Lymphocyte Count 2.21 X10^3/ul (0.83-4.51); Absolute Neutrophil Count 7.8 X10^3/uL (2.0-7.7); Basophil# 0.07 X10^3/uL; Basophil% 0.6 % (0-1); Eosinophil# 0.34 X10^3/uL; Eosinophils% 3.1 % (0-5); Hematocrit 41.6 % (37-47); Hemoglobin 13.7 g/dl (12.0-15.0); Lymphocyte # 2.21 X10^3/ul (4.0); Lymphocyte % 19.9 % (19-41); Mean Corp Hgb Conc 32.9 g/gl (32-36); Mean Corpuscular Volume 87.9 fL (81-99); Mean Platelet Vol. 9.6 fl (6.2-12.0); Monocyte# 0.66 X10^3/uL; Monocyte% 5.9 % (0-10); Neutrophil # 7.79 X10^3/uL (2.7-7.7); Neutrophil % 70.2 % (47-70); Platelet Count 264 K/mm3 (150-450); RBC Distribution Width CV 13.1 % (11.6-14.6); RBC Distribution Width SD 41.9 fl (35.1-43.9); Red Blood Count 4.73 M/mm3 (4.2-5.4); White Blood Count 11.1 K/mm3 (4.4-11.0)
[2018-06-28 06:55] LABS: POSITIVE COUNT NO; POSITIVE DIFFERENTIAL NO; POSITIVE MORPHOLOGY NO
[2018-06-28 06:58] LABS: Anion Gap 7 (5-15); BUN 11 mg/dL (7-18); BUN/Creat Ratio 20.6 RATIO (10-20); Calcium,Total 9.4 mg/dL (8.5-10.1); Chloride 109 mmol/L (98-107); Creatinine, Serum 0.53 mg/dL (0.55-1.02); EST Glomerular Filtration Rate 132 mL/min (>60); Est Glom Filt Rate - Afr Amer 159 mL/min (>60); Estimated Creatinine Clearance 126.81 ml/min; Glucose 108 mg/dL (74-106); Potassium 4.1 mmol/L (3.5-5.1); Sodium Level 143 mmol/L (136-145)
[2018-06-28 07:28] VITALS: PULSE 80
[2018-06-28 07:57] VITALS: BP 123/80; PULSE 79; RESP 18; TEMP 36.8; O2SAT 93
[2018-06-28] MEDS: Multivitamins,Therapeutic Tablet 1 TABLET PO (09:49)
[2018-06-28] MEDS: APIXABAN 5 MG TABLET PO (09:49)
--- NOTE | 2018-06-28 10:15 | DCINST_ITS ---
- Discharge Diagnoses Current Active Problems: Current Active and Chronic Problems Pulmonary emboli (Acute) Left leg pain (Acute) Chest pain (Acute) You will use the following diet at home:: Regular Your food should be the consistency of: Regular Discharge Activity: Return to Normal Activity Call your doctor if you observe: Fever of 101 or Higher, Shortness of breath, Fainting spells, Chest pain, Increased palpitations (irregular heartbeat), Calf discomfort Allergies/Adverse Reactions: Allergies latex Allergy (Verified 06/26/18 20:40) Rash sulfamethoxazole [From Bactrim] Allergy (Verified 06/26/18 20:40) Hives trimethoprim [From Bactrim] Allergy (Verified 06/26/18 20:40) Hives Iodinated Contrast- Oral and IV Dye [CONTRASTS] Adverse Reaction (Verified 06/26/18 20:40) Other sodium phenothol Allergy (Uncoded 06/26/18 20:40) Anaphylaxis Medications to take at Discharge Multivitamin [Multiple Vitamins] 1 tab PO DAILY 05/12/18 Apixaban [Eliquis] 1 tab PO BID 06/26/18 Primary Care Physician: Lizeth Whittington DO [Primary Care Provider] - Please follow up with your Primary Care Physician in: In 2 weeks Test Results: Test results from this visit will be discussed in further detail at your follow- up appointment, if applicable.
--- NOTE | 2018-06-28 10:15 | DS.PCM_ITS ---
Discharge Date and Diagnosis Date of Admission: 06/27/18 Date of Discharge: 06/28/18 - Primary Discharge Diagnosis Active and Suspected Problems Left leg pain (Acute) Acute DVT or repeat pulmonary embolism ruled out History of PE on [facility] Hospital Course and Treatment Imaging Results: 06/28/18 11:00 Lung Scan Vent/Perf [NM] Routine Summary of Care Provided: The patient is a 42-year-old with history of bilateral PE, diagnosed in April, on Eliquis who comes in with complaints of left lower extremity pain and hypoxia. Patient complain of jesus horse with a spasm in posterior aspect of left thigh and knee region. 1. Left lower extremity pain, predominantly posterior aspect of thigh: D-dimer is negative. Serial troponin enzymes negative. Patient is taking Eliquis, cla ims very compliant. Venous Doppler was done and reported negative for acute DVT. D-dimer is 0.32. Patient was apprehensive that last time even d-dimer was negative she had PE. 2. Bilateral PE: As venous Doppler was negative, d-dimer is also negative. No tachycardia, tachypnea or hypoxia. Patient is already on Eliquis and VQ scan will be futile as there is very low suspicion of recurrent PE with negative DVT in lower extremities. Patient understood that and VQ scan was canceled with her agreement. 3. DVT PPx- On Eliquis. Discharge medication reconciliation done. Follow-up instructions completed. Patient will complete 3 months of anticoagulant in July and knows that PCP will do hypercoagulable/hereditary blood clotting disorder workup. If something comes positive and workup, will need hematology consult. Discussed with the patient and her mother. Total time spent, exact 35 minutes on discharge meds reconciliation, examination, review of imaging and blood test and discussion with the patient on follow-up instructions. Subjective: Patient had left knee and left thigh jesus horse prior to admission. She was concerned of DVT and repeat PE although she is taking Eliquis for diagnosed PE in April 2018. At that time also she had negative venous Doppler and negative d-dimer. D-dimer is negative. Serial troponin enzymes are negative. Venous Doppler was done and is negative for acute DVT. - Physical Exam Vital Signs Temp Pulse Resp BP Pulse Ox 98.3 F 79 18 123/80 H 93 06/28/18 07:57 12/17/18 07:57 06/28/18 07:57 06/28/18 07:57 06/28/18 07:57 Oxygen Delivery Method Room Air Weight: 219 lb 2.232 oz Body Mass Index (BMI) 35.4 Intake and Output for Last 24 Hours 06/26/18 06/27/18 06/28/18 23:59 23:59 23:59 Intake Total 1390 / 1390 Balance 1390 / 1390 Laboratory Tests Past 24 Hrs 06/27/18 06/28/18 06/28/18 14:32 06:25 06:25 WBC 11.1 H RBC 4.73 Hgb 13.7 Hct 41.6 MCV 87.9 MCH 29.0 MCHC 32.9 RDW 13.1 RDW Differential 41.9 Plt Count 264 MPV 9.6 Immature Gran % (Auto) 0.300 Neut % (Auto) 70.2 H Lymph % (Auto) 19.9 [place] % (Auto) 5.9 Eos % (Auto) 3.1 Baso % (Auto) 0.6 Absolute Neuts (auto) 7.8 H Absolute Lymphs (auto) 2.21 Total Counted Not Reportable D-Dimer Quant (PE/DVT) 0.32 Sodium 143 Potassium 4.1 Chloride 109 H Carbon Dioxide 27.0 Anion Gap 7 BUN 11 Creatinine 0.53 L Estim Creat Clear Calc 126.81 Est GFR (MDRD) Af Amer 159 Est GFR (MDRD) Non-Af 132 BUN/Creatinine Ratio 20.6 H Glucose 108 H Calcium 9.4 Discharge Activity: Return to Normal Activity Call your doctor if you observe: Fever of 101 or Higher, Shortness of breath, Fainting spells, Chest pain, Increased palpitations (irregular heartbeat), Calf discomfort Home Medications: Medications to take at Discharge Multivitamin [Multiple Vitamins] 1 tab PO DAILY 05/12/18 Apixaban [Eliquis] 1 tab PO BID 06/26/18 Primary Care Physician: Lizeth Whittington DO [Primary Care Provider] - Please follow up with your Primary Care Physician in: In 2 weeks Medical Necessity - Tobacco Use Smoking Status: Former smoker Tobacco Use: Non-smoker Meaningful Use Info Meaningful Use Diagnoses (Choose all that apply): None applicable Code Visit OBSV E&M: 05587 Observation care discharge
[2018-06-28 11:38] VITALS: BP 128/83; PULSE 88; RESP 18; TEMP 36.6; O2SAT 95
--- OUTSIDE RECORDS SUMMARY | 2018-09-29 12:30 | XMS RPT_ITS | Continuity of Care Document ---
:1975 Author Organization [facility] Address [address] [facility] [address] [place] [address] Phone Care Team Providers Name Role Phone Lizeth Whittington DO Unavailable Dr. Irvin Wang Unavailable JOANN Viera Unavailable Unavailable Unavailable Unavailable Problems Name Dates Details Abnormal CXR (R93.89, 793.2) Status: Active Abnormal EKG (R94.31, 794.31) Comments: in ER read by Dr Hall Status: Active Abortions/Miscarriages Comments: 1. Status: Active BMI 33.0-33.9,adult (Z68.33, V85.33) Status: Active CHEST PAIN (R07.9, 786.59) Status: Active Dizzy (R42, 780.4) Status: Active Dizzy spells (R42, 780.4) Comments: assoc with exercise-??-- low bs? dropped bp? orhtos neg -- need HUT?-- ck sugar accuck when happens Status: Active Fibromyalgia (M79.7, 729.1) Status: Active Heart murmur (R01.1, 785.2) Status: Active History of TIA (transient ischemic attack) (Z86.73, V12.54) Comments: 2009 roughly Status: Active History of ulcer disease (Renamed from H/O ulcer disease) (Z87.898, V13.89) Comments: gastric Status: Active Migraine (G43.909, 346.90) Status: Active Peanut allergy (V15.01) Status: Active Pregnancies () Comments: 4. Status: Active Sleep apnea (G47.30, 780.57) Comments: Will see Nicole abnormal sleep studyneeds trial of cpap Status: Active Smoker (F17.200, 305.1) Status: Active SOB (shortness of breath) (R06.02, 786.05) Status: Active Tachycardia (R00.0, 785.0) Status: Active Unspecified Diagnosis Status: Active Vaginal Delivery Comments: [id number] Status: Active Weight gain (R63.5, 783.1) Status: Active Medications Name Dates Details EpiPen 2-Bob 0.3 MG/0.3ML Injection Solution Auto-injector 1 Device uad for 0 days Quantity: 1 {Milliliter} Refills: 0 Ordered:04-Aug-2017 Chelita Viera LPN Start : 04-Aug-2017 Active Proventil HFA 108 (90 Base) MCG/ACT Inhalation Aerosol Solution 1 Aerosol Soln 1-2 puffs every 6 horus prn for 90 days Quantity: 1 {QS} Refills: 3 Ordered:04-Aug-2017 Chelita Viera LPN Start : 04-Aug-2017 Active Zithromax Z-Bob 250 MG Oral Tablet 1 (one) Tablet TAD for 0 days Quantity: 1 {Package} Refills: 0 Ordered:18-Aug-2017 Jared RODRÍGUEZDianna E Start : 18-Aug-2017 Active Augmentin 875-125 MG Oral Tablet 1 (one) Tablet PO BID for 14 days Quantity: 28 {Tablet} Refills: 0 Ordered:11-Aug-2017 Chelita Steele Start : 11-Aug-2017 End : 25-Aug-2017 Inactive Comments:Take with food IBUPROFEN, 200MG (Oral Capsule) 1 Capsule 6 times a day for 30 days Refills: 0 Ordered:14-Apr-2013 GUILHERME Jasso Start : 19-Oct-2012 End : 14-Apr-2013 Inactive LEVAQUIN, 500MG (Oral Tablet) 1 Tablet daily for 0 days Quantity: 14 {Tablet} Refills: 0 Ordered:28-Apr-2013 Kenna Delgado LPN Start : 14-Apr-2013 End : 28-Apr-2013 Inactive PREDNISONE, 20MG (Oral Tablet) 1 Tablet uad for 0 days Refills: 0 Ordered:28-Apr-2013 Danny DAVIDKenna Start : 14-Apr-2013 End : 28-Apr-2013 Inactive Comments:2 a d for 5 d, 1 a d for 5d, 1/2 a d for 5 d TraMADol HCl 50 MG Oral Tablet 1 (one) Tablet q8hrs prn for 0 days Quantity: 10 {Tablet} Refills: 0 Ordered:04-Aug-2017 Chelita Viera JOANN Start : 23-Jan-2017 End : 04-Aug-2017 Inactive Comments:per ER Allergies and Adverse Reactions Name Dates Details Acetaminophen *ANALGESICS - NonNarcotic* Status: Active (Allergy) Comments: tongue and throat swell Latex (Renamed from Latex Gloves *MEDICAL Status: Active DEVICES*) (Allergy) Comments: skin issues Past Medical History Name Dates Details Allergic Rhinitis (J30.9, 477.9) Comments: otc meds Status: Inactive as of 07-Nov-2016 Bacterial sinusitis (J32.9, 473.9) Status: Inactive as of 12-May-2018 Breast lump in female (N63.0, 611.72) Status: Inactive as of 07-Nov-2016 Bronchitis (J40, 490) Status: Inactive as of 07-Nov-2016 Cough (R05, 786.2) Status: Inactive as of 12-May-2018 Cough (R05, 786.2) Status: Inactive as of 07-Nov-2016 Elevated blood pressure reading (R03.0, 796.2) Comments: Has been taking decongestants Status: Inactive as of 12-May-2018 Fatigue (R53.83, 780.79) Status: Inactive as of 12-May-2018 Flu-like symptoms (R68.89, 780.99) Status: Inactive as of 12-May-2018 Left foot pain (M79.672, 729.5) Status: Inactive as of 12-May-2018 Nutritional counseling (Z71.3, V65.3) Status: Inactive as of 12-May-2018 Pre-operative exam (Renamed from Encounter for pre-operative examination) (Z01.818, W22.84) Status: Inactive as of 12-May-2018 Pre-operative examination (Z01.818, P02.84) Status: Inactive as of 14-Apr-2013 Sinus pressure (J34.89, 478.19) Status: Inactive as of 12-May-2018 Procedures Procedure Dates Details Colonoscopy Completed Comments: 2011 Colonoscopy, Screening Completed Comments: 2011 D&C Completed Comments: 2002 Hysterectomy Completed Comments: 2003 Mammogram, Screening Completed Comments: 2005 Pap Smear Completed Comments: 2003 Tubal Ligation Completed Comments: 1995 Tubes in ears Completed Comments: 1980 Date Value Details 12-May-2018 CTA Chest W/WO Contrast Result: Comments: See Note; NOTES: [facility] Imaging Services [address] [place] [address] CTA Chest W/WO Contrast MR#: [id number] Acct: [id number] Name: BRIANNA BENNETT Rep #: [id number] : 1975 F 42 From: Andrés Li MD PCP: Lizeth Whittington DO Status: REG CLI Study: CTA Chest W/WO Contrast Date of Exam: 05/12/18 Exam# [id number] Ordering Dr: Lizeth Whittington DO UDY: CTA CHEST REASON FOR EXAM: Female, 42 years old. Possible pulmonary embolism. RADIATION DOSAGE (If Supplied By Facility): CTDIvol = ( 14.89 ) mGy, DLP = ( 762.85 ) mGycm TECHNIQUE: The examinati on was performed with the intravenous administration of 100CC ml of Isovue 370 contrast material. Post-processing of the angiographic images was performed, with multiplanar reformation and 3D reconstruc tion. Individualized dose optimization techniques were used for this CT. COMPARISON: None. FINDINGS: Nonocclusive intraluminal filling defects are seen in the bra nches of the both right and upper lobe pulmonary arteries in keeping with the pulmonary embolism. Normal thoracic aorta and visualized great vessels. There is no demonstrated aortic dissection. Christina l heart and pericardium. Normal mediastinum. Normal hilar regions. Normal visualized trachea and bronchi. The lungs are well expanded. Normal pulmonary parenchyma. Normal pleura. Normal chest wall structures. There are degenerative changes of thoracic spine. Small sliding hiatal hernia. CT/CTA Chest W/WO Contrast IMPRESSION: Findings inco mplete with multiple nonocclusive pulmonary emboli in branches of the right and left upper lobe pulmonary arteries. Electronically Signed: Adnrés Li MD at 15:13 EDT Tel [phone], Service support , CC: Lizeth Whittington DO Rib Builder: Signed 07-May-2018 12 Lead Electrocardiogram Result: Comments: See Note; NOTES: [facility] Cardiovascular Services [address] [facility] [place] [address] 12 Lead EKG 05/04/18 1326 MR#: [id number] Acct: [id number] Name: BRIANNA BENNETT #: [id number] : 1975 42 From: Vinh Hall MD Attending Dr: Status: DEP ER Ordering Dr: Cody Landa DO Date: 05/04/18 Location: ED Sex: F C Admitted: Test Reason : CP/SOB Blood Pressure : / mmHG Vent. Rate : 123 BPM Atrial Rate : 123 BPM P-R Int : 156 ms QRS Dur : 084 ms QT Int : 314 ms P-R-T Axes : 069 029 043 degrees QTc Int : 449 ms Sinus tachycardia Possible Lateral infarct , age undetermined Inferior infarct , age undetermined Abnormal ECG Confirmed by RAFAEL JASON, VINH ([id number]), acquisitions editor JAMAL ADAMS ([id number]) on 05/07/2018 1:06:22 PM Referred By: PARVEZ/ALPHONSE Confirmed By: VINH HALL MD 05/07/18 1306 Date Vinh Hall MD CC: Cody Landa DO; Lizeth Whittington DO Signed 04-May-2018 Emergency Department Summary Result: Comments: See Note; NOTES: [facility] Medical Records Department [address] [place] [address] Emergency Department Summary 05/04/18 1421 MR#: [id number] Acct: [id number] Name: BRIANNA BENNETT Rep #: [id number] : 1975 42 From: Cody Landa DO PCP: Lizeth Whittington DO Status: DEP ER - ER Visit Summary Date of Service: 05/04/18 Chief Complaint: Shortness of breath an d fast heart rate History of Present Illness: The patient is a 42 F who presents with chest pain palpitations and shortness of breath. Patient states that for the past 2-3 months she has had some chest heaviness. She then had some sharp chest pain components to it. She decreased the amount that she was smoking down to half a pack a day. Today she started to feel her heart beating faster while shoppin g and she got lightheaded. She went to the pharmacy section of the store and took her blood pressure which she states was 137/100 and her heart rate was 124. She states that all the way here she had dry mouth. She states now she feels squeezing in the chest she tried her albuterol inhaler did not get any relief. She states she has had a thyroid test in the past and that has been negative. She denies a ny recent surgery. beginning last week she did have a cough has been nonproductive. Physical Examination: Afebrile blood pressure 160/92 in triage heart rate of 125 respirations are 26 pulse ox 95% and afebrile. Gen: Well-nourished well-developed Head: Normocephalic atraumatic Eyes: Perrl EOMI ENT: TMs clear no rhinorrhea moist mucous membranes Neck: Supple no lymphadenopathy no JVD nontender CVS: Re gular rate and tachycardic rhythm no murmurs normal S1-S2 Respiratory: No distress clear to auscultation bilaterally chest nontender Abdomen: Soft nontender nondistended normal bowel sounds no masses Ba ck: Nontender Extremity: Nontender no edema Skin: Normal color no rash Neuro: alert orientated 3 CN II-XII intact normal strength sensation reflexes gait cerebellar Psych: Anxious Test Results: EKG corine ws a sinus rhythm at a rate of 123. White count 11.6. Chemistries are normal. Troponin is negative. D-dimer negative at 0.44. Chest x-ray showed a possible early lingular infiltrate. Emergency Departme nt Course and Treatment: Patient was observed on the monitor. Heart rate is come down to 106. White count is slightly elevated. X-ray shows a possible early lingular infiltrate. A mucous plug would make sense the sudden onset of shortness of breath. It is reasonable to treat her with some azithromycin for atypical pneumonia. Patient also may require Holter monitor or echocardiogram for further cardiac evaluation if her symptoms continue. Return if worsening or concerns Impression: 1. Sinus tachycardia 2. Dyspnea This note was generated with [employer] software. It may contain incorrect wor ds, spelling, and punctuation that were not noted in review of the chart prior to signing ED Disposition - Plan for ED Patient: Disposition: Home or Assisted Living Chief Complaint: Shortness of Cora th Instructions: Walking Pneumonia Prescriptions: Azithromycin [Zithromax Z-Bob] 250 mg PO UD #1 box Referrals: Lizeth Whittington, [Primary Care Provider] - As soon as possible What to do if you hav e Problems For any increased pain, shortness of breath, bleeding, nausea or vomiting, chest pain, or any unexpected problems, contact your Primary Care Provider. Call [facility] ([phone]) or report to the closest Emergency Room. Call 911 if necessary. 05/04/18 1544 <Electronically signed by Cody Landa DO> Date Cody fernandez DO Cosigner Signature (If Indicated): Date CC: Lizeth Whittington DO 04-May-2018 Chest PA and Lateral Result: Comments: See Note; NOTES: [facility] Imaging Services [address] [place] [address] Chest PA and Lateral MR#: [id number] Acct: [id number] Name: BRIANNA BENNETT Rep #: [id number] : 1975 F 42 From: Andrés Li MD PCP: Lizeth Whittington DO Status: REG ER Study: Chest PA and Lateral Date of Exam: 05/04/18 Exam# [id number] Ordering Dr: Cody Landa DO STUDY: X-RA Y CHEST REASON FOR EXAM: Female, 42 years old. Dyspnea and shortness of breath. TECHNIQUE: PA and lateral views of the chest. COMPARISON: None. FINDINGS: EKG edgardo ings are seen. Increased markings are seen in the lingular segment of the left upper lobe. Early lingular infiltrate should be ruled out. Follow-up is recommended. There is no demonstrated pleural abno rmality. Normal size heart. Normal mediastinum and julia. Normal visualized pulmonary arteries. Normal visualized aortic arch and descending thoracic aorta. Normal visualized thoracic spine. Normal vis ualized ribs, clavicles, and shoulders. There is no demonstrated abnormality of the visualized soft tissue structures of the upper abdomen. RAD/ Chest PA and Lateral IMPRESSION: Findings suggestive of early lingular infiltrate. Electronically Signed: Andrés Li MD at 14:57 EDT Tel [phone], Service support , CC: Cody Landa DO; Lizeth Whittington DO Rib Builder: Signed 13-Aug-2017 12 Lead Electrocardiogram Result: Comments: See Note; NOTES: [facility] Cardiovascular Services [address] [place] [address] 12 Lead EKG 08/12/17 1147 MR#: [id number] Acct: [id number] Name: BRIANNA BENNETT Rep #: [id number] : 1975 41 From: Cody Barone MD Attending Dr: Irvin Wang DPM Status: PRE [facility] [place]ing Dr: Irvin Wang DPM Date: 08/12/17 Location: SDC Sex: F C Admitted: Test Reason : PRE OP Blood Pressure : / mmHG Vent. Rate : 102 BPM Atrial Rate : 102 BPM P-R Int : 158 ms QRS Dur : 078 ms QT Int : 334 ms P-R-T Axes : 060 015 049 degrees QTc Int : 435 ms Sinus tachycardia Po ssible Left atrial enlargement Possible Lateral infarct (cited on or before 19-OCT-2012) Abnormal ECG Confirmed by CODY BARONE ([id number]), acquisitions editor JAMAL ADAMS ([id number]) on 08/13/2017 11:38:07 AM Referred By : Irvin Wang Confirmed By:CODY BARONE 08/13/17 1138 Date Cody Barone MD CC: Irvin Wang DPM; Lizeth Whittington DO Signed 01-Jul-2017 Lower Ext Joint Only (Routine) Result: Comments: See Note; NOTES: [facility] Imaging Services [address] [place] [address] Lower Ext Joint Only (Routine) MR#: [id number] Acct: [id number] Name: BRIANNA BENNETT Rep #: [id number] : 1975 F 41 From: Leoncio Saini MD PCP: Lizeth Whittington DO Status: REG CLI Study: Lower Ext Joint Only (Routine) Date of Exam: 07/01/17 Exam# [id number] Ordering Dr: Paty Wang DPM STUDY: MRI LEFT ANKLE WITHOUT CONTRAST REASON FOR EXAM: Female, 41 years old. Left ankle sprain/injury 12/2016, still has pain across anterior ankle, 4th and 5th toes will not move down TECHNIQ UE: Standardized fat and water weighted pulse sequences were obtained in all 3 orthogonal planes. COMPARISON: X-rays of the left ankle on January 04, 2017. FINDINGS: N ormal subcutis adipose space. Normal posterior tibialis tendon. Normal flexor digitorum longus tendon. Normal flexor hallucis longus tendon. Normal peroneus longus and brevis tendons. Normal tibialis a nterior tendon. Normal extensor hallucis longus tendon. Normal extensor digitorum longus tendons. Normal Achilles tendon and teno-osseous insertion. Normal plantar fascia. Normal plantar calcaneal tub ercles. 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 Normal distal ti biofibular syndesmotic ligamentous complex. There is scarring with thickening of the anterior talofibular ligament consistent with an old sprain. Normal subtalar ligaments and sinus tarsi. Normal deltoi d ligamentous complexes. Normal plantar calcaneonavicular (spring) ligament. Normal tibiotalar articulation. Normal talar dome. There is a small posterior subtalar joint effusion. Normal talonavicular articulation. Normal calcaneocuboid articulation. Normal navicular-cuneiform articulations. MRI/Lower Ext Joint Only (Routine) IMPRESSION: SPRAIN of the anterior talofibular ligament without tear. Denervation atrophy of the abductor digiti minimi atrophy Electronically Signed: Leoncio Saini MD, FACR at 9:03 EST , Service support , CC: Irvin Wang DPM; Lizeth Whittington DO Rib Builder: Signed 03-Apr-2017 Re-Evaluation - PT (1) Result: Comments: See Note; NOTES: [facility] Physical Therapy [facility] [address] [place] [address]. [address] [place] [address] Fax REEVALUATION / MEDICARE RECERTI [facility] PHYSICAL THERAPY MR#: [id number] Acct: [id number] Name: BRIANNA BENNETT Rep #: [id number] : 1975 41 From: Magalys BOYDT Referring DrZaida: Dianna Coleman Status: REG RCR Insurance: MED [facility] Dianna Coleman, It has been my pleasure to treat BRIANNA BENNETT over the last 6 visits for Left Foot Pain. Please see the progress note below for an update on the physical therapy plan of care ! Subjective: Feels like its getting a little bit better. Last Thursday she had to balance on just the left leg- felt a pull on the left foot- and its was then black and blue. Thursday whens he did them in 4 feet water the top turned black and blue. Feels burning. Everyday she walks around on it at her house minimally with breaks and is up to an hour. Patient feels that she is 25% better. Can't do anyt nicole near what she does with the other one. Pain is located along the lateral aspect of the foot and radiates to the posterior malleolus. Best: 2/10 Worst:10/10 Objective/Function: Posture: FH, RS, Incr eased kyphosis. Gait: antalgic- decreased stance on the left LE- still in boot. ROM: DF: negative 7 degrees, PF: 30 degrees, Inv: 10 degrees, Ev: 5 degrees- severe pain with all motions Plan Plan: Hold - return to MD for further evaluation Goals Goal 1:: Patient delfin be I with HEP and progression Goal Time Frame: 4-6 Weeks Goal Progress: Progressing Goal 2:: Patient will ambulate >300 feet wit h a normalized gait pattern Goal Time Frame: 4-6 Weeks Goal Progress: Not Progressing Goal 3:: Patient will demo full AROM of the left foot with 0/10 pain Goal Time Frame: 4-6 Weeks Goal Progress: Not P rogressing Goal 4:: Patient will SLS for 10 sec without LOB Goal Time Frame: 4- 6 Weeks Goal Progress: Not Progressing Anticipated Interventions Patient/Client Instruction: Educate patient on: Benefits of Fitness Program For the Purpose of:: To increase tolerance to activity/condition/position Therapeutic Exercise to Include: Strength training, Endurance training, Balance training, Body mechanics, Pos tural training, Flexibilty training, Gait and locomotor training, In an aquatic setting", Passive ROM, Active ROM For the Purpose of:: To improve muscle performance and motor function Nevin peterson do not hesitate to contact me at [phone] by phone or if you have questions or concerns regarding this new plan of care! Sincerely, Magalys Patel <Electronically signed by Magalys Patel DPT> 04/03/17 0917 CC: Dianna Coleman; Lizeth Whittington DO ELR Signed For Medicare only, by signing this I certify the plan of care. Physicians Signature Date 04-Mar-2017 Inital Evaluation (1) - PT Result: Comments: See Note; NOTES: [facility] Physical [facility] [address] [place], [place] [address] Fax REHABILITATION SERVICES INITIAL EVALUATION MR#: [id number] Acct: [id number] Name: BRIANNA BENNETT Rep #: [id number] : 1975 41 From: Magalys Patel DPT Referring Dr.: Dianna Coleman Status: REG RCR Insurance: MED [facility] Visit Information BRIANNA BENNETT is a 41 year old F referred to Physical Therapy by Dianna Coleman with a diagnosis of Left Foot Pain. Date of Evaluation: 03/04/17 Physical Therapist: Magalys Patel - Visit Plan Frequency: 2x /Week Duration: 4 Weeks Plan: aquatics- focus on ROM, decreasing swelling and functional mobility. - Subjective Subjective: January 04 fell in a hole heard popping- went to ER- sent for x-rays- no visible broken bones- sent her home with a sprained- put in boot- went and saw PCP 3 weeks later- swollen, black and blue- aches with weight bearing after an hour its very painf ul. By the end of the day its very swollen and doesn't have good ROM- was sent for an MRI which insurance denied until you did 4 weeks of PT. MD thinks possible stress fractures. 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 Pain at Worst: 9/10 Agg: walking in/out of the boot, ankle movement. Eases: elevation, staying off of it Best: 0/10. Pain is located on the top of the foot fr om the toes to the middle of the seay- describes the pain as hot and achy. No N/T in the toes that is new. Has been diagnosed with MS- has neuropathy- but reports more coldness in the left foot since in jury. Sleep: wakes her up if she moves around to much. 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 PMHx: MS Meds: allergy meds, Tramadol- hasn't taken them sin ce the first day. - Objective Posture: FH, RS- can correct with verbal cues. Gait: antalgic- has CAM walker on the left- decreased stance on the left LE and toes turned out. HR/TR: unable. SLS: unable but can weight shift. Edema: Mall: 25 cm, Figure 4: 52 cm, Mets: 21.5 cm. Palpation: tender along entire foot- signficant pain with palpation. ROM: DF: 5 degrees from neutral, PF: 10 degrees, Inv: 5 deg anabel, Ev: 10 degrees all with pain. Knee: WNL. Strength: not tested due to severe pain and limited ROM - Goals Goal 1:: Patient delfin be I with HEP and progression Goal Time Frame: 4-6 Weeks Goal 2:: Urmila sepulveda will ambulate >300 feet with a normalized gait pattern Goal Time Frame: 4- 6 Weeks Goal 3:: Patient will demo full AROM of the left foot with 0/10 pain Goal Time Frame: 4-6 Weeks Goal 4:: Larry diane will SLS for 10 sec without LOB Goal Time Frame: 4-6 Weeks - Rehabilitation Potential Physical Therapy Diagnosis: Patient presents with hypomobility- she has decreased ROM and pain with all mobil ity. Rehabilitation Potential: Good - Anticipated Interventions Patient/Client Instruction: Educate patient on: Benefits of Fitness Program For the Purpose of:: To increase tolerance to activity/condit ion/position Therapeutic Exercise to Include: Strength training, Endurance training, Balance training, Body mechanics, Postural training, Flexibilty training, Gait and locomotor training, In an aquatic setting, Passive ROM, Active ROM For the Purpose of:: To improve muscle performance and motor function Thank you for the opportunity to evaluate your patient. For Medicare and [facility], please review the plan of care and approve it. It will need to be FAXED BACK to us at [phone] for Medicare purposes. Please let me know if there are questions or concerns regardi ng this plan of care. Physician Signature: Date: <Electronically signed by Magalys Patel DPT> 03/04/17 1045 CC: Dianna alvarez; Lizeth Whittington DO ELR Signed For Medicare only, by signing this I certify the plan of care. Physicians Signature Date 07-Jan-2017 Emergency Department Summary Result: Comments: See Note; NOTES: [facility] Medical Records Department [address] [place] [address] Emergency Department Summary MR#: [id number] Acct: [id number] Name: VAZQUEZ BENNETT Rep #: [id number] : 1975 41 From: Demetrio Toscano MD PCP: Lizeth Whittington DO Status: [facility] ER DATE OF SERVICE: 01/04/2017 CHIEF COMPLAINT: My ankle hurt. HISTORY OF PRESENT ILL NESS: The patient points over the lateral aspect of the ankle as a source of discomfort within the last couple of hours. She said she was walking outside and suddenly twisted her ankle. She is not sure which way it went on, severe pain, moderate without weightbearing. She does not think she has hurt this significantly in the past. No other injuries. She had an Advil that she actually took while here w roman waiting to be seen. She has had a questionable stroke remotely. PHYSICAL EXAMINATION: GENERAL: The patient has no sign of head or face trauma. EXTREMITIES: Her isolated injury is left ankle where she has marked severe pain on palpation at the left anterior talofibular ligament. Normal Shipman test. No pain at base of fifth metatarsals or toes. Good capillary refill, sensation. No proximal disco mfort. Initially, she thought her knee was a little sore, but it is not ____, has no pain on palpation or swelling or ecchymosis. She has most of her pain just with exacerbating what I think with the in version injury. SKIN: With good color, no contusion. NEUROLOGICAL: Alert and oriented. No focal neurological deficits, lethargy or listlessness. TREATMENT: Left ankle x-ray from triage shows some soft tissue swelling laterally, but no sign of acute fracture. She states that she cannot take anything with Tylenol, including pain medicine, but she ____ tramadol she thought before, I gave her 1 now, 4 to go, and orthopedic walking boot, ice, elevation, staying off when possible. Follow up within a week with Dr. Whittington or recheck sooner in the Emergency Room as needed for worse pain, swelling, new injur ies. She is agreeable and stable, voiced understanding with . DIAGNOSIS: Acute left ankle anterior talofibular ligament strain secondary to fall outside 2 hours prior to arrival while walking. MD Richard Lovett C: Lizeth Whittington DO T: NTS JOB: [id number] 01/07/17 0806 <Electronically signed by Demetrio Toscano MD> Date Demetrio Toscano MD Cosigner Signature (If Indicated): Date CC: Lizeth Whittington DO Date Dictated: 01/05/1733 Date Transcribed: 01/05/1733 Rib Builder: Signed 23-Oct-2014 Elizabeth Faust Digital AND CAD Result: Comments: See Note; NOTES: [facility] Imaging Services [address] [place] [address] Breast Imaging Report MR#: [id number] Acct: [id number] Name: BRIANNA BENNETT Rep #: [id number] : 1975 F 39 From: Andrés Li MD PCP: Justa Fulton MD Status: REG CLI Study: Elizabeth Faust Digital AND CAD Date of Exam: 10/23/14 Exam# [id number] Ordering Dr: Justa Fulton MD MAMMOGRAPHY - BILATERAL DIAGNOSTIC REASON FOR EXAM: Female, 39 years old. Left breast fullness. PERTINENT HISTORY: Aunt with breast cancer. TECHNIQUE: Digital examination. Mediolateral oblique (MLO) and craniocaudad (CC) views of both breasts were obtained. CAD: CAD was performed on this study. COMPARISON: Comparison is made with prior abdomen examination dated May 26, 2006. FINDINGS: Breast Composition: There are scattered areas of fibroglandular density. There are no dominant masses or suspicious calcifications. No other significant a bnormalities are identified. There has been no significant change since the prior study. IMPRESSION: Stable bilateral diagnostic mammogram. With the patient's hi story of a palpable abnormality in the left breast, correlation with ultrasound is recommended. ASSESSMENT CATEGORY: BIRADS Category 0: Incomplete. Need additio nal imaging evaluation. A letter regarding these results will be sent to the patient by the facility within 30 days. Approximately 10% of breast cancers are not detected by mammography. A normal ma mmogram should not delay biopsy of a clinically suspicious abnormality. Electronically Signed: Andrés Li MD at 8:43 EDT Tel [phone], Service support [phone], Fax CC: Justa Fulton MD Rib Builder: Signed 23-Oct-2014 Breast Limited Unilateral Result: Comments: See Note; NOTES: [facility] Imaging Services [address] [place] [address] Ultrasound Report MR#: [id number] Acct: [id number] Name: BRIANNA BENNETT Rep #: [id number] : 1975 F 39 From: Andrés Li MD PCP: Justa Fulton MD Status: REG CLI Study: Breast Limited Unilateral Date of Exam: 10/23/14 Exam# [id number] Ordering Dr: Justa Fulton MD S TUDY: ULTRASOUND BREAST - LEFT REASON FOR EXAM: Female, 39 years old. Palpable lump left breast. TECHNIQUE: Axial and longitudinal images of the LEFT breast were performed with a high resolution ul trasound transducer. COMPARISON: Comparison is made with prior mammogram done earlier in the day. FINDINGS: LEFT Breast: Multiple views of the upper outer qu adrant of the left breast were obtained. There is homogeneous glandular tissue. There is a 4 mm x 4 mm x 2 mm echogenic nodule in the superficial portion of the breast. This may represent a small lip sera. IMPRESSION: Findings suggest very small lipoma in the upper outer quadrant of the breast. ASSESSMENT CATEGORY: BIRAD S Category 2: Benign. A letter regarding these results will be sent to the patient by the facility within 30 days. Electronically Signed: Andrés Li MD at 9:50 EDT Tel [phone], Service support [phone], CC: Justa Fulton MD Rib Builder: Signed 23-Jul-2014 Emergency Department Summary Result: Comments: See Note; NOTES: [facility] Medical Records Department [address] [place] [address] Emergency Department Summary MR#: [id number] Acct: [id number] Name: BRIANNA BENNETT Rep #: [id number] : 1975 38 From: Josh Lagunas MD PCP: Justa Fulton MD Status: DEP ER DATE OF SERVICE: 07/19/2014 CHIEF COMPLAINT: Headache. HISTORY OF PRESENT ILLNESS: Etta cline is a 38-year-old female who less than 1 hour ago began to have shooting pain in her left temporal area. She has no visual changes, fevers, nausea, or vomiting. No recent illness. No history of he ad injury. She has a history of multiple sclerosis, but is otherwise medically healthy. PHYSICAL EXAMINATION: VITAL SIGNS: Afebrile. Vital signs are stable. GENERAL: No distress. HEENT: She has t enderness in the left temporal area and temporal artery region. Pupils are equally round and reactive. Moist mucous membranes. HEART: Regular rate and rhythm. LUNGS: Clear. ABDOMEN: Soft. NEUROLOGI C: There are no focal or lateralizing neurological deficits. EMERGENCY DEPARTMENT COURSE: CT of the head shows no acute abnormality. Lab work including ESR is normal. ESR is only 5. On reevaluation , the patient's pain is improved. She has had no episodes of a shooting pain here. She was advised to follow up with her family physician as needed and she was discharged home. IMPRESSION: Headach e. DISPOSITION: Discharge. Dr. Josh Lagunas MD T: NTS JOB: [id number] 07/23/14 2241 <Electronically signed by Josh Lagunas MD> Date Josh Lagunas MD CC: Justa Fulton MD Date Dictated: 07/19/141610 Date Transcribed: 07/19/141610 Rib Builder: Signed 19-Jul-2014 Discharge Instruction Result: Comments: See Note; NOTES: [facility] Medical Records Department [address] [place] [address] Discharge Instruction 07/19/141611 MR#: [id number] Acct: [id number] Name: BRIANNA BENNETT Rep #: [id number] : 1975 38 From: Josh Lagunas MD PCP: Justa Fulton MD Status: REG ER ED Disposition - Plan for ED Patient: Chief Complaint: Headache Instructions: ED Headache, Unspecified What to do if you have Problems For any increased pain, shortness of breath, bleeding, nausea or vomiting, chest pain, or any unexpected problems, contact your doctor. Call [facility] ) or report to the closest Emergency Room. Call 911 if necessary. 07/19/14 1612 <Electronically signed by Josh Lagunas MD> Date Josh Lagunas MD Cosigner Signature (If Indicated): Date CC: Justa Fulton MD 19-Jul-2014 Brain/Head without Contrast Result: Comments: See Note; NOTES: [facility] Imaging Services [address] [place] [address] CAT Scan Report MR#: [id number] Acct: [id number] Name: BRIANNA BENNETT Rep #: [id number] : 1975 F 38 From: Andrés Li MD PCP: Justa Fulton MD Status: REG ER Study: Brain/Head without Contrast Date of Exam: 07/19/14 Exam# [id number] Ordering Dr: Josh Lagunas MD STUDY: CT BRAIN WITHOUT CONTRAST REASON FOR EXAM: Female, 38 years old. Sudden onset of left-sided headaches. RADIATION DOSAGE (If Supplied By Facility): CTDIvol = ( 58.39 ) mGy, DLP = ( 978.13 ) mGycm TECHNIQUE: Transaxial CT imaging of the brain was performed without administration of intravenous contrast material. COMPARISON: Comparison is made with prior study dated October 04, 2009. ___ FINDINGS: Normal soft tissue structures. Normal calvarium. Normal size ventricles and extra-axial spaces for the patient's age. Normal white matter tracts of the c erebral hemispheres. 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 Normal brainstem. Normal cerebellum. There is no intracranial hemorrhage. There are no findings of an acute ischemic in farction. There is calcification of the cavernous portions of the internal carotid arteries bilaterally. Normal visualized paranasal sinuses. IMPRESSION: No ac omer abnormality is seen. Electronically Signed: Andrés Li MD at 15:47 EST Tel [phone], Service support [phone], CC: Justa Fulton MD; Josh Lagunas MD Rib Builder: Signed Family History Unknown Family Member Name Dates Details Diabetes Mellitus Comments: Maternal Grandmother. Status: Active Fibromylgia Comments: Mother. Status: Active Heart Disease Comments: Mother. Maternal Grandmother. Status: Active Hypercholesterolemia Comments: Mother. Maternal Grandmother. Status: Active Hypertension Comments: Mother. Maternal Grandmother. Status: Active Lymphoma Comments: Mother. Status: Active Thyroid problems Comments: Mother. Maternal Grandmother. Status: Active Social History Name Dates Details Caffeine Use Comments: qd Status: Active Exercise History: Exercises regularly. Status: Active Living Situation: Lives with spouse. Status: Active No Drug Use Status: Active Non Drinker/No Alcohol Use Status: Active Number of Adult (age 18 or over) Dependents: 1. Status: Active Number of Child (age 0-17) Dependents: 2. Status: Active Pets/Animals: Dog. Cat. Status: Active Tobacco use: Current every day smoker. Comments: 1/2ppd Status: Active Smoking Status Name Dates Details Current every day smoker Vital Signs Date Test Result Details 05-Yrq-339864:22 Pulse 95 /min Comments: Pattern: Regular Respiration Rate 18 /min Comments: Pattern: Unlabored O2 SAT 97 % Comments: Room air BP Systolic 128 mm[Hg] Comments: Patient Position: Sitting; Cuff Location: Left Arm; Cuff Size: Large BP Diastolic 84 mm[Hg] Comments: Patient Position: Sitting; Cuff Location: Left Arm; Cuff Size: Large Weight 212.125 lb Height 66.5 in Body Mass Index Calculated 33.72 kg/m2 Body Surface Area Calculated 2.06 m2 45-Rgt-613827:18 Temperature 97.5 f Pulse 91 /min Comments: Pattern: Regular Respiration Rate 18 /min Comments: Pattern: Unlabored O2 SAT 94 % Comments: Room air BP Systolic 148 mm[Hg] Comments: Patient Position: Sitting; Cuff Location: Left Arm; Cuff Size: Standard BP Diastolic 98 mm[Hg] Comments: Patient Position: Sitting; Cuff Location: Left Arm; Cuff Size: Standard Weight 209 lb Height 66.5 in Body Mass Index Calculated 33.23 kg/m2 Body Surface Area Calculated 2.05 m2 60-Cgs-336167:46 Pulse 88 /min Comments: Pattern: Regular Respiration Rate 18 /min Comments: Pattern: Unlabored O2 SAT 95 % Comments: Room air BP Systolic 128 mm[Hg] Comments: Patient Position: Sitting; Cuff Location: Left Arm; Cuff Size: Large BP Diastolic 84 mm[Hg] Comments: Patient Position: Sitting; Cuff Location: Left Arm; Cuff Size: Large Weight 209 lb Height 66.5 in Body Mass Index Calculated 33.23 kg/m2 Body Surface Area Calculated 2.05 m2 :09 Temperature 97.2 f Pulse 102 /min Comments: Pattern: Regular Respiration Rate 17 /min Comments: Pattern: Unlabored O2 SAT 97 % Comments: Room air BP Systolic 118 mm[Hg] Comments: Patient Position: Sitting; Cuff Location: Left Arm; Cuff Size: Standard BP Diastolic 76 mm[Hg] Comments: Patient Position: Sitting; Cuff Location: Left Arm; Cuff Size: Standard Weight 209 lb Height 66.5 in Body Mass Index Calculated 33.23 kg/m2 Body Surface Area Calculated 2.05 m2 :48 Pulse 87 /min Comments: Pattern: Regular Respiration Rate 18 /min Comments: Pattern: Unlabored O2 SAT 95 % Comments: Room air BP Systolic 122 mm[Hg] Comments: Patient Position: Sitting; Cuff Location: Left Arm; Cuff Size: Large BP Diastolic 86 mm[Hg] Comments: Patient Position: Sitting; Cuff Location: Left Arm; Cuff Size: Large Weight 209 lb Height 66.5 in Body Mass Index Calculated 33.23 kg/m2 Body Surface Area Calculated 2.05 m2 :10 Pulse 103 /min Comments: Pattern: Regular Respiration Rate 18 /min Comments: Pattern: Unlabored O2 SAT 98 % Comments: Room air BP Systolic 138 mm[Hg] Comments: Patient Position: Sitting; Cuff Location: Left Arm; Cuff Size: Large BP Diastolic 86 mm[Hg] Comments: Patient Position: Sitting; Cuff Location: Left Arm; Cuff Size: Large Weight 212.25 lb Height 66.5 in Body Mass Index Calculated 33.74 kg/m2 Body Surface Area Calculated 2.06 m2 :58 Temperature 98.7 f Comments: Method: Temporal Pulse 101 /min Comments: Pattern: Regular Respiration Rate 16 /min Comments: Pattern: Unlabored O2 SAT 94 % Comments: Room air BP Systolic 124 mm[Hg] Comments: Patient Position: Sitting; Cuff Location: Left Arm; Cuff Size: Standard BP Diastolic 82 mm[Hg] Comments: Patient Position: Sitting; Cuff Location: Left Arm; Cuff Size: Standard Weight 190.6 lb Height 66.5 in Body Mass Index Calculated 30.3 kg/m2 Body Surface Area Calculated 1.97 m2 :05 Temperature 96.2 f Comments: Method: Temporal Pulse 114 /min Comments: Pattern: Regular Respiration Rate 16 /min Comments: Pattern: Unlabored O2 SAT 97 % Comments: Room air BP Systolic 128 mm[Hg] Comments: Patient Position: Sitting; Cuff Location: Left Arm; Cuff Size: Standard BP Diastolic 82 mm[Hg] Comments: Patient Position: Sitting; Cuff Location: Left Arm; Cuff Size: Standard Weight 190 lb Height 66.5 in Body Mass Index Calculated 30.21 kg/m2 Body Surface Area Calculated 1.97 m2 :11 Temperature 98.6 f Comments: Method: Oral Pulse 102 /min Comments: Pattern: Regular Respiration Rate 20 /min Comments: Pattern: Unlabored O2 SAT 98 % Comments: Room air BP Systolic 126 mm[Hg] Comments: Patient Position: Sitting; Cuff Location: Left Arm; Cuff Size: Standard BP Diastolic 84 mm[Hg] Comments: Patient Position: Sitting; Cuff Location: Left Arm; Cuff Size: Standard Weight 190 lb Height 66.5 in Body Mass Index Calculated 30.21 kg/m2 Body Surface Area Calculated 1.97 m2 :38 Temperature 98.7 f Comments: Method: Oral Pulse 60 /min Comments: Pattern: Regular Respiration Rate 16 /min Comments: Pattern: Unlabored BP Systolic 122 mm[Hg] BP Diastolic 70 mm[Hg] Weight 193.125 lb Height 66.5 in Body Mass Index Calculated 30.7 kg/m2 Body Surface Area Calculated 1.98 m2 Results Date Description Value Details 85-Hse-910835:40 Basic Metabolic Profile (BMP) Comments: [facility] [id number] [place], [place], [address] GAP 6 (Normal) Range: 5-15 CO2 29.0 mmol/L (Normal) Range: 21.0-32.0 CL 103 mmol/L (Normal) Range: 98-107 K 3.6 mmol/L (Normal) Range: 3.5-5.1 NA 138 mmol/L (Normal) Range: 136-145 CA 9.9 mg/dL (Normal) Range: 8.5-10.1 BUN/CRE 23.7 {RATIO} (Abnormal) Range: 10-20 Estimated CRCL 110.81 ml/min (Normal) EST GFR - AA 131 mL/min (Normal) Comments: GFR Calc EST GFR 108 mL/min (Normal) Comments: Non- GFR Calc CREAT,SERUM 0.63 mg/dL (Normal) Range: 0.55-1.02 Comments: The validity of the calculated GFR AND GFRAA in patients over70 years has not been determined. Clinical correlation isessential. BUN 15 mg/dL (Normal) Range: 7-18 GLU 101 mg/dL (Normal) Range: 74-106 Comments: Fasting Glucose result from 100 to 125 mg/dLsuggests IMPAIRED HOMEOSTASIS per A.D.A. criteria.Please note revised GLUCOSE reference range tvpozlatz49/02/2018. 17-Vwa-851114:40 CBC W/Diff, Automated Comments: [facility] [id number] [place], [place], [address] Absolute Lymph 3.04 {X10_3/ul} (Normal) Range: 0.83-4.51 Absolute Neut 7.4 {X10_3/uL} (Normal) Range: 2.0-7.7 IM GRAN % 0.200 % (Normal) Range: 0.0-0.9 Comments: IG% - Immature Granulocytes (promyelocytes, myelocytes andmetamyelocytes) > 1% indicates that a LEFT SHIFT is Present. BASO% 0.6 % (Normal) Range: 0-1 EO% 2.8 % (Normal) Range: 0-5 MONO% 5.9 % (Normal) Range: 0-10 LY% 26.3 % (Normal) Range: 19-41 NEUT% 64.2 % (Normal) Range: 47-70 MPV 9.8 fL (Normal) Range: 6.2-12.0 PLT 272 K/mm3 (Normal) Range: 150-450 RDW SD 42.7 fL (Normal) Range: 35.1-43.9 RDW CV 13.4 % (Normal) Range: 11.6-14.6 MCHC 33.2 {g/gl} (Normal) Range: 32-36 MCH 29.1 pg (Normal) Range: 27.0-32.0 MCV 87.6 fL (Normal) Range: 81-99 HCT 47.3 % (Abnormal) Range: 37-47 HGB 15.7 g/dL (Abnormal) Range: 12.0-15.0 RBC 5.40 {M/mm3} (Normal) Range: 4.2-5.4 WBC 11.6 K/mm3 (Abnormal) Range: 4.4-11.0 :40 D-Dimer Quantitative (DVT/PE) Comments: [address] [place], [address] D-DIMER QUANT 0.44 {FEU/ug/m} (Normal) Range: 0.27-0.49 Comments: NORMAL D-Dimer level (<0.50) indicates no DVT or PE. :40 Thyroid Stim Hormone (TSH) Comments: [address] [place], [address] TSH 1.29 {uIU/mL} (Normal) Range: 0.358-3.74 :40 Troponin-I Comments: [address] [place], [address] TROPONIN-I < 0.015 ng/mL (Normal) Comments: TROPONIN-I EXPECTED VALUES <0.045 Negative 0.045 - 0.590 Consistent with Cardiac Damage > OR = 0.600 Critical Value Not every elevated troponin is indicative of [place]. T hesevalues should be used with clinical judgement in examiningthe patient's clinical picture for diagnosis. To establisha diagnosis of [place] versus myocardial injury, there must be ademonstrated rise and/ or fall in the troponin values, inaddition to ischemic symptoms, EKG changes, new regionalwall motion abnormality, and/or angiographical evidence. PLEASE NOTE: REFERENCE RANGES EDITED 11/23/1711-Aug-201722-Wvi-874094:00 Rapid Flu (33292 x 2) Influenza A Ag Negative (Normal) 14-Fxn-598909:02 METABOLIC PANEL, COMPREHENSIVE Comments: PATIENT NOT FASTINGPERFORMED BY: [facility] [address] [facility] [id number] (03198) ALT (SGPT) 22 [iU]/L (Normal) Range: 0-32 AST (SGOT) 18 [iU]/L (Normal) Range: 0-40 Alkaline Phosphatase, S 117 [iU]/L (Normal) Range: 39-117 Bilirubin, Total 0.3 mg/dL (Normal) Range: 0.0-1.2 A/G Ratio 1.8 (Normal) Range: 1.2-2.2 Globulin, Total 2.5 g/dL (Normal) Range: 1.5-4.5 Albumin, Serum 4.6 g/dL (Normal) Range: 3.5-5.5 Protein, Total, Serum 7.1 g/dL (Normal) Range: 6.0-8.5 Calcium, Serum 9.7 mg/dL (Normal) Range: 8.7-10.2 Carbon Dioxide, Total 23 mmol/L (Normal) Range: 18-29 Chloride, Serum 103 mmol/L (Normal) Range: 96-106 Potassium, Serum 4.4 mmol/L (Normal) Range: 3.5-5.2 Sodium, Serum 145 mmol/L (Abnormal) Range: 134-144 BUN/Creatinine Ratio 15 (Normal) Range: 9-23 eGFR If Africn Am 124 mL/min/1.73 (Normal) eGFR If NonAfricn Am 107 mL/min/1.73 (Normal) Creatinine, Serum 0.68 mg/dL (Normal) Range: 0.57-1.00 BUN 10 mg/dL (Normal) Range: 6-24 Glucose, Serum 81 mg/dL (Normal) Range: 65-99 56-Obi-712351:02 CBC W/AUTO DIFF WBC (70322) Comments: PATIENT NOT FASTINGPERFORMED BY: [facility] [facility] [id number] Immature Grans (Abs) 0.0 {x10E3/uL} (Normal) Range: 0.0-0.1 Immature Granulocytes 0 % (Normal) Baso (Absolute) 0.1 {x10E3/uL} (Normal) Range: 0.0-0.2 Eos (Absolute) 0.4 {x10E3/uL} (Normal) Range: 0.0-0.4 Monocytes(Absolute) 0.5 {x10E3/uL} (Normal) Range: 0.1-0.9 Lymphs (Absolute) 3.0 {x10E3/uL} (Normal) Range: 0.7-3.1 Neutrophils (Absolute) 6.9 {x10E3/uL} (Normal) Range: 1.4-7.0 Basos 1 % (Normal) Eos 3 % (Normal) Monocytes 5 % (Normal) Lymphs 28 % (Normal) Neutrophils 63 % (Normal) Platelets 317 {x10E3/uL} (Normal) Range: 150-379 RDW 13.9 % (Normal) Range: 12.3-15.4 MCHC 34.7 g/dL (Normal) Range: 31.5-35.7 MCH 28.9 pg (Normal) Range: 26.6-33.0 MCV 83 fL (Normal) Range: 79-97 Hematocrit 41.5 % (Normal) Range: 34.0-46.6 Hemoglobin 14.4 g/dL (Normal) Range: 11.1-15.9 RBC 4.99 {x10E6/uL} (Normal) Range: 3.77-5.28 WBC 10.9 {x10E3/uL} (Abnormal) Range: 3.4-10.8 11-Shd-853891:02 PTT (Activated Partial Comments: PATIENT NOT FASTINGPERFORMED BY: [facility] [facility] [id number] Thromboplastin Time) (95990) aPTT 30 {sec} (Normal) Range: 24-33 Comments: This test has not been validated for monitoring unfractionated heparintherapy. aPTT-based therapeutic ranges for unfractionated heparintherapy have not been established. For general guidelines onHeparin monitoring, refer to the [facility] Directory of Services. 92-Qvg-196907:02 PT (Prothrobim Time) (12842) Comments: PATIENT NOT FASTINGPERFORMED BY: [facility] [facility] [id number] Prothrombin Time 9.8 {sec} (Normal) Range: 9.1-12.0 INR 0.9 (Normal) Range: 0.8-1.2 Comments: Reference interval is for non-anticoagulated patients. . Suggested INR therapeutic range for Vitamin K anta gonist therapy: Standard Dose (moderate intensity therapeutic range): 2.0 - 3.0 Higher intensity therapeutic range 2.5 - 3.5 37-Csm-343940:35 CALCIFIDIOL (98149) VIT D 25 Comments: PATIENT NOT FASTINGPERFORMED BY: [facility] [facility] [id number] Vitamin D, 25-Hydroxy 30.7 ng/mL (Normal) Range: 30.0-100.0 Comments: Vitamin D deficiency has been defined by the [place] ofMedicine and an Endocrine Society practice guideline as alevel of serum 25-OH vitamin D less than 20 ng/mL (1,2).The Endocrine Society went on to further define vitamin Dinsufficiency as a level between 21 and 29 ng/mL (2).1. IOM ([place] of Medicine). 2010. Dietary reference intakes for calcium and D. [place]: The National Academies Press.2. Chasity MF, Jerson NC, Sandra PADILLA, et al. Evaluation, treatment, and prevention of vitamin D deficiency: an Endocrine Society clinical practice guideline. JCEM. 2010; 96(7):1911-30. 19-Def-130609:35 Folate (16180) Comments: PATIENT NOT FASTINGPERFORMED BY: [facility] [facility] [id number] Folate (Folic Acid), Serum >20.0 ng/mL (Normal) Comments: A serum folate concentration of less than 3.1 ng/mL isconsidered to represent clinical deficiency. 06-Qiw-555562:35 VITAMIN B-12 (CYANOCOBALAMIN) Comments: PATIENT NOT FASTINGPERFORMED BY: JIN [facility] [address]ublin [place] [id number] (50248) Vitamin B12 862 pg/mL (Normal) Range: 211-946 :35 TSH (55937) Comments: PATIENT NOT FASTINGPERFORMED BY: CB [facility] Ofss[address]ublin [place] [id number] TSH 0.695 {uIU/mL} (Normal) Range: 0.450-4.500 60-Iiy-321405:35 SED RATE ERYTHROCYTE (02319) Comments: PATIENT NOT FASTINGPERFORMED BY: CB [facility] [address] [place] [id number] Sedimentation Rate-Westergren 3 mm/h (Normal) Range: 0-32 :35 RHEUMATOID FACTOR-QUANT (61637) Comments: PATIENT NOT FASTINGPERFORMED BY: CB [facility] [address]bk[address]ublin [place] [id number] RA Latex Turbid. <10.0 {IU/mL} (Normal) Range: 0.0-13.9 76-Tob-532252:35 METABOLIC PANEL, COMPREHENSIVE Comments: PATIENT NOT FASTINGPERFORMED BY: CB [facility] [address]fa[address]ublin [place] [id number] (16176) ALT (SGPT) 13 [iU]/L (Normal) Range: 0-32 AST (SGOT) 18 [iU]/L (Normal) Range: 0-40 Alkaline Phosphatase, S 126 [iU]/L (Abnormal) Range: 39-117 Bilirubin, Total 0.3 mg/dL (Normal) Range: 0.0-1.2 A/G Ratio 2.0 (Normal) Range: 1.2-2.2 Globulin, Total 2.4 g/dL (Normal) Range: 1.5-4.5 Albumin, Serum 4.7 g/dL (Normal) Range: 3.5-5.5 Protein, Total, Serum 7.1 g/dL (Normal) Range: 6.0-8.5 Calcium, Serum 10.2 mg/dL (Normal) Range: 8.7-10.2 Carbon Dioxide, Total 24 mmol/L (Normal) Range: 18-29 Chloride, Serum 101 mmol/L (Normal) Range: 96-106 Potassium, Serum 4.5 mmol/L (Normal) Range: 3.5-5.2 Sodium, Serum 145 mmol/L (Abnormal) Range: 134-144 BUN/Creatinine Ratio 16 (Normal) Range: 9-23 eGFR If Africn Am 128 mL/min/1.73 (Normal) eGFR If NonAfricn Am 111 mL/min/1.73 (Normal) Creatinine, Serum 0.61 mg/dL (Normal) Range: 0.57-1.00 BUN 10 mg/dL (Normal) Range: 6-24 Glucose, Serum 95 mg/dL (Normal) Range: 65-99 55-Tvp-272896:35 C-REACTIVE PROTEIN (62373) Comments: PATIENT NOT FASTINGPERFORMED BY: [facility] [address] [place] [id number] C-Reactive Protein, Quant 5.1 mg/L (Abnormal) Range: 0.0-4.9 :35 CBC (AUTO) (74696) Comments: PATIENT NOT FASTINGPERFORMED BY: [facility] [address] [facility] [place] [id number] Platelets 312 {x10E3/uL} (Normal) Range: 150-379 RDW 13.1 % (Normal) Range: 12.3-15.4 MCHC 34.3 g/dL (Normal) Range: 31.5-35.7 MCH 28.8 pg (Normal) Range: 26.6-33.0 MCV 84 fL (Normal) Range: 79-97 Hematocrit 43.5 % (Normal) Range: 34.0-46.6 Hemoglobin 14.9 g/dL (Normal) Range: 11.1-15.9 RBC 5.17 {x10E6/uL} (Normal) Range: 3.77-5.28 WBC 11.4 {x10E3/uL} (Abnormal) Range: 3.4-10.8 :35 FILIBERTO (ANTINUCLEAR ANTIBODY) Comments: PATIENT NOT FASTINGPERFORMED BY: [facility] [address] [place] [id number] ([id number]) FILIBERTO Direct Negative (Normal) [id number] Basic Metabolic Profile (BMP) Comments: Test performed at:[facility] [id number] [place], [place] [id number] GAP 6 (Normal) Range: 5-15 CO2 29.0 mmol/L (Normal) Range: 21.0-32.0 CL 106 mmol/L (Normal) Range: 98-107 K 3.9 mmol/L (Normal) Range: 3.5-5.1 NA 141 mmol/L (Normal) Range: 136-145 CA 9.2 mg/dL (Normal) Range: 8.5-10.1 BUN/CRE 18.3 {RATIO} (Normal) Range: 10-20 Estimated CRCL 116.68 ml/min (Normal) EST GFR - AA 143 mL/min (Normal) EST GFR 118 mL/min (Normal) CREAT,SERUM 0.6 mg/dL (Normal) Range: 0.6-1.0 BUN 11 mg/dL (Normal) Range: 7-18 GLU 111 mg/dL (Abnormal) Range: 70-110 Comments: Fasting Glucose result from 110 to <126 mg/dLsuggests IMPAIRED HOMEOSTASIS per A.D.A. criteria. [id number] CBC W/Diff, Automated Comments: Test performed at:[facility] [id number] [place] [address] Absolute Lymph 2.64 {X10_3/ul} (Normal) Range: 0.83-4.51 Absolute Neut 8.0 {X10_3/uL} (Abnormal) Range: 2.0-7.7 IM GRAN % 0.200 % (Normal) Range: 0.0-0.9 Comments: IG% - Immature Granulocytes (promyelocytes, myelocytes andmetamyelocytes) > 1% indicates that a LEFT SHIFT is Present. BASO% 0.7 % (Normal) Range: 0-1 EO% 3.0 % (Normal) Range: 0-5 MONO% 5.5 % (Normal) Range: 0-10 LY% 22.6 % (Normal) Range: 19-41 NEUT% 68.0 % (Normal) Range: 47-70 MPV 10.0 fL (Normal) Range: 6.2-12.0 PLT 266 K/mm3 (Normal) Range: 150-450 RDW SD 39.5 fL (Normal) Range: 35.1-43.9 RDW CV 12.4 % (Normal) Range: 11.6-14.6 MCHC 33.3 {g/gl} (Normal) Range: 32-36 MCH 29.4 pg (Normal) Range: 27.0-32.0 MCV 88.2 fL (Normal) Range: 81-99 HCT 45.6 % (Normal) Range: 37-47 HGB 15.2 g/dL (Abnormal) Range: 12.0-15.0 RBC 5.17 {M/mm3} (Normal) Range: 4.2-5.4 WBC 11.7 K/mm3 (Abnormal) Range: 4.4-11.0 [id number] Erythrocyte Sed Rate Comments: Test performed at:[facility] [id number] [place], [place] [address] SED RATE 5 mm/h (Normal) Range: 0-20 Plan of Care Name Dates Details Instructions Sinus pressure : Follow up if no improvement or if symptoms worsen Indication: Sinus pressure Bacterial sinusitis : Sinusitis *: sinus infection Indication: Bacterial sinusitis BMI 33.0-33.9,adult : Eprescribed prescriptions (G8553) Indication: BMI 33.0-33.9,adult Smoker : Eprescribed prescriptions (G8553) Indication: Smoker BMI 33.0-33.9,adult : Follow up if no improvement or if symptoms worsen Indication: BMI 33.0-33.9,adult Left foot pain : Eprescribed prescriptions (G8553) Indication: Left foot pain Weight gain : Reviewed Lab Indication: Weight gain Fatigue : Follow up in 3 weeks Indication: Fatigue Fatigue : *fatigue education Indication: Fatigue Bronchitis : *URI Treatment Indication: Bronchitis Bronchitis : *URI Symptoms Indication: Bronchitis Bronchitis : *Antibiotic Usage Education - Female Indication: Bronchitis Bronchitis : Cough: respiratory infection Indication: Bronchitis Planned Procedures ELECTROCARDIOGRAM, COMPLETE (ECG) On: 12-May-2018 Intent ([id number])By: Lizeth Whittington DO Comments: NSR poor R wave progression -- inc RBBB--possible lateral ischemia??? tropionin neg in ER Lizeth JORGE Echo CompleteBy: Lizeth Whittington DO On: 12-May-2018 Intent Lizeth Whittington DO CTA CHEST W/W/O CONTRAST ([id number])By: On: 12-May-2018 Intent Lizeth Whittington DO, DO, Comments: r/o PE Lizeth HOLTER MONITORING WITH INTERPRETATION On: 12-May-2018 Intent ([id number])By: Lizeth Whittington DO Comments: 24hours Lizeth JORGE MRI ANKLE AND FOOT ([id number])By: Jared On: 23-Jan-2017 Intent Dianna RODRÍGUEZ ATTENDED SLEEP STUDY ([id number])By: On: 07-Nov-2016 Intent Lizeth Whittington DO, DO, Kathleen Ultrasound - Breast - LeftBy: Donaldo On: 19-Oct-2014 Intent Justa JASON MAMMOGRAM, SCREENING, BOTH BREAST On: 19-Oct-2014 Intent ([id number])By: Justa Fulton MD Eprescribed prescriptions (G8553)By: On: 28-Apr-2013 Intent 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, Kenna L Aerosol Treatment ([id number])By: Donaldo On: 14-Apr-2013 Intent Justa JASON Pulse Oximetry ([id number])By: Romero On: 14-Apr-2013 Intent GUILHERME EKG ([id number])By: Lizeth Whittington DO On: 19-Oct-2012 Intent Lizeth Whittington DO Comments: done at [facility] Instructions Name Dates Details Smoker : How to access health information online Indication: Smoker Smoker : How to access health information online - Detail Indication: Smoker Smoker : Patient Instructions Indication: Smoker BMI 33.0-33.9,adult : How to access health information online Indication: BMI 33.0-33.9,adult BMI 33.0-33.9,adult : How to access health information online - Detail Indication: BMI 33.0-33.9,adult Cough : Patient Instructions Indication: Cough Smoker : How to access health information online Indication: Smoker Smoker : How to access health information online - Detail Indication: Smoker Smoker : Patient Instructions Indication: Smoker Left foot pain : How to access health information online Indication: Left foot pain Left foot pain : How to access health information online - Detail Indication: Left foot pain Left foot pain : Patient Instructions Indication: Left foot pain Smoker : How to access health information online Indication: Smoker Smoker : How to access health information online - Detail Indication: Smoker Smoker : Patient Instructions Indication: Smoker Smoker : How to access health information online Indication: Smoker Smoker : How to access health information online - Detail Indication: Smoker Smoker : Patient Instructions Indication: Smoker Peanut allergy : Patient Instructions Indication: Peanut allergy Bronchitis : Patient Instructions Indication: Bronchitis Encounters Office Visit On: 12-May-2018 12:15 Encounter Reason: Follow up ER - Reason for hospitalization note: (in [employer] last week and she got dizzy and felt like she was going to pass out. Her heartrate is eklvated and she gets sob. They agve her a antb for pneu End: 12-May-2018 13:26 monia and he was not 100% that it was that.).Encounter Diagnosis: BMI 33.0-33.9,adult, Smoker, CHEST PAIN (786.59), SOB (shortness of breath), Tachycardia, Dizzy, Abnormal CXR, Abnormal EKG, Heart murmur [facility] Annotation/Addendum On: 18-Aug-2017 16:14 Encounter Diagnosis: Unspecified Diagnosis End: 18-Aug-2017 16:15 [facility] Office Visit On: 11-Aug-2017 14:16 Encounter Reason: Cold Symptoms - Symptoms include nasal congestion (greenish, sometimes), runny nose, postnasal drainage and productive cough. Onset was 3 day(s) ago. The patient describes this as moderate in severity. End: 11-Aug-2017 15:16 Note for Cold symptoms: has surgery on thursday on her ankle with dr wang. has had fevers but is on tylenol to bring them down.Symptoms started 3 days ago with runny nose, sneezing, nasal drainage-gr een at times, cough-yellow green, fever or chills, headaches, sinus pressure, left pressure, SOB at times. No wheezing, CP. ??Having foot surgery in 4 days.Has been taking OTC cold med, mucinex.Encounter Diagnosis: BMI 33.0-33.9,adult, Smoker, Cough , Sinus pressure, Flu-like symptoms, Elevated blood pressure reading, Bacterial sinusitis [facility] Office Visit On: 04-Aug-2017 10:28 Encounter Reason: Pre-Op Visit - The procedure scheduled is a lt ankle sx on 08/14/17. The surgeon for the procedure will be Dr. Flip Wang.Encounter Diagnosis: BMI 33.0-33.9,adult, Smoker, End: 04-Aug-2017 11:15 Pre-operative exam (Renamed from Encounter for pre-operative examination), Nutritional counseling, Left foot pain, History of TIA (transient ischemic attack) [facility] Office Visit On: 23-Jan-2017 13:01 Encounter Reason: Follow up ER - Reason for hospitalization note: (ankle sprain). The patient does not feel well (still having pain and swelling). Note for Follow up ER: fell in a divit in yard on January 04 went to ER End: 23-Jan-2017 15:19 xray and boot but still in pain was told Left ankle anterior talfibular ligament strain secondary to fall outsideEncounter Diagnosis: BMI 33.0-33.9,adult, Smoker, Left foot pain, Sleep apnea [facility] Office Visit On: 28-Nov-2016 14:35 Encounter Reason: Follow up tests - Date: (11/07/16 labs).Encounter Diagnosis: BMI 33.0-33.9,adult, Smoker, Weight gain, Nutritional counseling, Fatigue, Dizzy spells End: 28-Nov-2016 16:20 [facility] Office Visit On: 07-Nov-2016 11:27 Encounter Reason: Weight Gain - No changes in management were made at the last visit. Patient reports weight gain of between 30 and 39 pounds (was 175 last November and in Jul was 195). Onset was gradual month(s) ago. Note fo End: 07-Nov-2016 15:07 r Weight gain: works out 3 days a week and for 2 hrs, [ADDITIONAL REASON] Fatigue - No changes in management were made at the last visit. Symptoms include fatigue, myalgias and arthralgias, while symptoms do not include poor sleep. Onset was sudden 5 month(s) ago. The symptoms occur constantly. The patient describes this as moderate in severity. Encounter Diagnosis: BMI 33.0-33.9,adult, Smoker, Fatigue, Weight gain, Nutritional counseling [facility] Office Visit On: 19-Oct-2014 10:57 Encounter Reason: Breast MassEncounter Diagnosis: Breast lump in female End: 19-Oct-2014 11:33 [facility] Office Visit On: 28-Apr-2013 9:51 Encounter Reason: food intolerance - believes -- from peanutsalso has facial numbness.Encounter Diagnosis: Peanut allergy (V15.01) End: 28-Apr-2013 10:36 [facility] Office Visit On: 14-Apr-2013 14:11 Encounter Diagnosis: BRONCHITIS, NOT SPECIFIED ACUTE OR CHRONIC (490.) End: 19-Apr-2013 17:35 [facility] Office Visit On: 19-Oct-2012 11:38 Encounter Reason: Pre-Op Visit - The procedure scheduled is a lt foot sx on 10/29/12. The surgeon for the procedure will be Dr. Taylor.Encounter Diagnosis: Fibromyalgia (729.1), PRE-OPERATIVE EXAMINATION, UNSPECIFIED (V72.84), End: 19-Oct-2012 12:09 History of ulcer disease (V13.89), Migraine (346.90), Allergic Rhinitis (477.9), CHEST PAIN (786.59) [facility]; saurav guarantor
--- OUTSIDE RECORDS SUMMARY | 2018-09-29 12:30 | XMS RPT_ITS | Continuity of Care Document ---
:1975 Author Organization [facility] Address [address] [place] [address] Phone Care Team Providers Name Role Phone [...] Unspecified Diagnosis Status: Active Vaginal Delivery Comments: [id number] Status: Active Weight gain (R63.5, 783.1) Status: [...] (Renamed from Encounter for pre-operative examination) (Z01.818, Z22.84) Status: Inactive as of 12-May-2018 Pre-operative examination (Z01.818, D32.84) Status: Inactive as of 14-Apr-2013 Sinus pressure (J34.89, 478.19) Status: Inactive as of 12-May-2018 Procedures Procedure Dates Details Colonoscopy Completed Comments: 2011 Colonoscopy, Screening Completed Comments: 2011 D&C Completed Comments: 2002 Hysterectomy Completed Comments: 2003 Mammogram, Screening Completed Comments: 2005 Pap Smear Completed Comments: 2003 Tubal Ligation Completed Comments: 1995 Tubes in ears Completed Comments: 1980 Date Value Details 07-May-2018 12 Lead Electrocardiogram Result: Comments: See Note; NOTES: [facility] Cardiovascular Services [address] [place] [address] 12 Lead EKG 05/04/18 1326 MR#: [id number] Acct: [id number] Name: BRIANNA BENNETT Re p #: [id number] : 1975 42 From: Vinh Hall MD [...] Abnormal ECG Confirmed by RAFAEL JASON, VINH ([id number]), acquisition editor JAMAL ADAMS ([id number]) on 05/07/2018 1:06:22 PM Referred By: PARVEZ/ALPHONSE Confirmed By: VINH HALL MD 05/07/18 1306 Date Vinh Hall MD CC: Cody Landa DO; Lizeth Whittington DO Signed 04-May-2018 Emergency Department Summary Result: Comments: See Note; NOTES: [facility] Medical Records Department [address] [place] [address] Emergency Department Summary 05/04/18 1421 MR#: [id number] Acct: [id number] Name: BRIANNA BENNETT Rep #: [id number] : 1975 42 From: Cody Landa DO [...] 2. Dyspnea This note was generated with TrillTip dictation software. It may contain incorrect wor ds, spelling, and punctuation that were not noted in review of the chart prior to signing ED Disposition - Plan for ED Patient: Disposition: Home or Assisted Living Chief Complaint: Shortness of Mimbres th Instructions: Walking Pneumonia Prescriptions: Azithromycin [Zithromax Z-Bob] 250 mg PO UD #1 box Referrals: Lizeth Whittington DO [Primary Care Provider] - As soon as possible What to do if you hav e Problems For any increased pain, shortness of breath, bleeding, nausea or vomiting, chest pain, or any unexpected problems, contact your Primary Care Provider. Call [facility] ([phone]) or report to the closest Emergency Room. Call 911 if necessary. 05/04/18 1544 <Electronically signed by Cody Landa DO> Date Cody fernandez DO Cosigner Signature (If Indicated): Date CC: Lizeth Whittington DO 04-May-2018 Chest PA and Lateral Result: Comments: See Note; NOTES: [facility] Imaging Services [address] [place] [address] Chest PA and Lateral MR#: [id number] Acct: [id number] Name: BRIANNA BENNETT Rep #: [id number] : 1975 F 42 From: Andrés Li MD PCP: Lizeth Whittington DO Status: [facility] ER Study: Chest PA and Lateral Date of Exam: 05/04/18 Exam# [id number] Ordering Dr: Cody Landa DO STUDY: X-RA [...] Andrés Li MD at 14:57 EDT Tel [phone], Service support , CC: Cody Landa DO; Lizeth Whittington DO Fruit Grader: Signed 13-Aug-2017 12 Lead Electrocardiogram Result: Comments: See Note; NOTES: [facility] Cardiovascular Services [address] [place] [address] 12 Lead EKG 08/12/17 1147 MR#: [id number] Acct: [id number] Name: BRIANNA BENNETT Rep #: [id number] : 1975 41 From: Cody Barone MD Attending Dr: Irvin Wang DPM Status: PRE [facility] Ordering Dr: Irvin Wang DPM Date: 08/12/17 Location: [facility] Sex: F C Admitted: Test Reason : [...] Abnormal ECG Confirmed by CODY BARONE ([id number]), acquisition editor JAMAL ADAMS ([id number]) on 08/13/2017 11:38:07 AM Referred By : Irvin Wang Confirmed By:CODY BARONE 08/13/17 1138 Date Cody Barone MD CC: Irvin Wang DPM; Lizeth Whittington DO Signed 01-Jul-2017 Lower Ext Joint Only (Routine) Result: Comments: See Note; NOTES: [facility] Imaging Services [address] [place] [address] Lower Ext Joint Only (Routine) MR#: [id number] Acct: [id number] Name: BRIANNA BENNETT Rep #: [id number] : 1975 F 41 From: Leoncio Saini MD PCP: Lizeth Whittnigton DO Status: REG CLI Study: Lower Ext Joint Only (Routine) Date of Exam: 07/01/17 Exam# [id number] Ordering Dr: Paty Wang DPM STUDY: MRI [...] CC: Irvin Wang DPM; Lizeth Whittington DO Fruit Grader: Signed 03-Apr-2017 Re-Evaluation - PT (1) Result: Comments: See Note; NOTES: [facility] Physical Therapy [facility] [address] [place] [address]. [address] [place] [address] Fax REEVALUATION / MEDICARE RECERTI [employer] [facility] PH[facility]ICAL [facility]ERAP[facility] MR#: [id number] Acct: [id number] Name: BRIANNA BENNETT Rep #: [id number] : 1975 41 From: Magalys Patel DPT Referring : Dianna Coleman Status: REG RCR Insurance: [facility] TPA Dianna Coleman, It has been my [...] do not hesitate to contact me at [phone] by phone or if you have questions or concerns regarding this new plan of care! Sincerely, Magalys Patel <Electronically signed by Magalys Patel DPT> 04/03/17 9756 CC: Dianna Coleman; Lizeth Whittington DO ELR Signed For Medicare only, by signing this I certify the plan of care. Physicians Signature Date 04-Mar-2017 Inital Evaluation (1) - PT Result: Comments: See Note; NOTES: [facility] Physical [facility] [address] [place] [address] Fax REHABILITATION SERVICES INITIAL EVALUATION MR#: [id number] Acct: [id number] Name: BRIANNA BENNETT Rep #: [id number] : 1975 41 From: Magalys Patel DPT Referring Dr.: Dianna Coleman Status: REG RCR Insurance: MED [facility] Information BRIANNA BENNETT is a 41 [...] possible stress fractures. Wear the boot multimedia manager except for an hour in the AM [...] coldness in the left foot since in jur. Sleep: wakes her up if she moves around to much. 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 For Medicare and [facility] HMO plans, please review the plan of care and approve it. It will need to be FAXED BACK to us at [phone] for Medicare purposes. Please let me know if there are questions or concerns regardi ng this plan of care. Physician Signature: Date: <Electronically signed by Magalys Patel DPT> 03/04/17 1045 CC: Dianna alvarez; Lizeth Whittington DO ELR Signed For Medicare only, by signing this I certify the plan of care. Physicians Signature Date 07-Jan-2017 Emergency Department Summary Result: Comments: See Note; NOTES: [facility] Medical Records Department [address] [place] [address] Emergency Department Summary MR#: [id number] Acct: [id number] Name: VAZQUEZ BENNETT Rep #: [id number] : 1975 41 From: Demetrio Toscano MD PCP: Lizeth Whittington DO Status: [facility] ER DATE OF SERVICE: 01/04/2017 CHIEF COMPLAINT: [...] [facility]. She has had [...] 2 hours prior to arrival while walking. Demetrio Toscano MD C C: Lizeth Whittington DO T: NTS JOB: [id number] 01/07/17 0806 <Electronically signed by Demetrio Toscano MD> Date Demetrio Toscano MD Cosigner Signature (If Indicated): Date CC: Lizeth Whittington DO Date Dictated: 01/05/1733 Date Transcribed: 01/05/1733 Fruit Grader: Signed 23-Oct-2014 Mow[employer] Digital AND CAD Result: Comments: See Note; NOTES: [facility] Imaging Services [address] [place] [address] Breast Imaging Report MR#: [id number] Acct: [id number] Name: BRIANNA BENNETT Rep #: [id number] : 1975 F 39 From: Andrés Li MD PCP: Justa Fulton MD Status: REG CLI Study: Bilat Diag Digital AND CAD Date of Exam: 10/23/14 Exam# [id number] Ordering Dr: Justa Fulton MD MAMMOGRAPHY - [...] Andrés Li MD at 8:43 EDT Tel [phone], Service support [phone], Fax CC: Justa Fulton MD Fruit Grader: Signed 23-Oct-2014 Breast Limited Unilateral Result: Comments: See Note; NOTES: [facility] Imaging Services [address] [place] [address] Ultrasound Report MR#: [id number] Acct: [id number] Name: BRIANNA BENNETT Rep #: [id number] : 1975 F 39 From: Andrés Li MD PCP: Justa Fulton MD Status: REG CLI Study: Breast Limited Unilateral Date of Exam: 10/23/14 Exam# [id number] Ordering Dr: Justa Fulton MD Charan CHANEYDY: ULTRASOUND BREAST - LEFT REASON FOR EXAM: [...] Andrés Li MD at 9:50 EDT Tel [phone], Service support [phone], CC: Justa Fulton MD Fruit Grader: Signed 23-Jul-2014 Emergency Department Summary Result: Comments: See Note; NOTES: [facility] Medical Records Department [address] [place] [address] Emergency Department Summary MR#: [id number] Acct: [id number] Name: BRIANNA BENNETT Rep #: [id number] : 1975 38 From: Josh Lagunas MD PCP: Justa Fulton MD Status: [facility] ER DATE OF SERVICE: 07/19/2014 CHIEF COMPLAINT: Headache. HISTORY OF PRESENT ILLNESS: Th is is a 38-year-old female who less than [...] Dr. Josh Lagunas MD T: NTS JOB: [id number] 07/23/14 2241 <Electronically signed by Josh Lagunas MD> Date Josh Lagunas MD CC: Justa Fulton MD Date Dictated: 07/19/141610 Date Transcribed: 07/19/141610 Fruit Grader: Signed 19-Jul-2014 Discharge Instruction Result: Comments: See Note; NOTES: [facility] Medical Records Department [address] [place] [address] Discharge Instruction 07/19/141611 MR#: [id number] Acct: [id number] Name: BRIANNA BENNETT Rep #: [id number] : 1975 38 From: Josh Lagunas MD [...] without Contrast Result: Comments: See Note; NOTES: [facility] Imaging Services [address] [place], [place] [address] CAT Scan Report MR#: [id number] Acct: [id number] Name: BRIANNA BENNETT Rep #: [id number] : 1975 F 38 From: Andrés Li MD PCP: Justa Fulton MD Status: REG ER Study: Brain/Head without Contrast Date of Exam: 07/19/14 Exam# [id number] Ordering Dr: Josh Lagunas MD STUDY: CT [...] Normal visualized paranasal sinuses. IMPRESSION: No ac north fork abnormality is seen. Electronically Signed: Andrés Li MD at 15:47 EST Tel [phone], Service support [phone], CC: Justa Fulton MD; Josh Lagunas MD Fruit Grader: Signed Family History Unknown Family Member Name [...] Tobacco use: Current every day smoker. Comments: /2ppd Status: Active Smoking Status Name Dates Details Current every day smoker Vital Signs Date Test Result Details 02-Jsd-302055:22 Pulse 95 /min Comments: Pattern: Regular Respiration [...] kg/m2 Body Surface Area Calculated 2.06 m2 20-Dbu-661922:18 Temperature 97.5 f Pulse 91 /min Comments: [...] kg/m2 Body Surface Area Calculated 2.05 m2 87-Kgs-042949:46 Pulse 88 /min Comments: Pattern: Regular Respiration [...] 1.98 m2 Results Date Description Value Details :40 Basic Metabolic Profile (BMP) Comments: [facility] [address] [place], [place], [id number] GAP 6 (Normal) Range: 5-15 CO2 29.0 [...] A.D.A. criteria.Please note revised GLUCOSE reference range izzpqkuqo61/02/2018. 63-Mbh-633363:40 CBC W/Diff, Automated Comments: [facility] [address] [place], [place], [id number] Absolute Lymph 3.04 {X10_3/ul} (Normal) Range: 0.83-4.51 [...] Range: 4.4-11.0 :40 D-Dimer Quantitative (DVT/PE) Comments: [address] [place], [place], [id number] D-DIMER QUANT 0.44 {FEU/ug/m} (Normal) Range: 0.27-0.49 Comments: NORMAL D-Dimer level (<0.50) indicates no DVT or PE. :40 Thyroid Stim Hormone (TSH) Comments: [address] [place], [place], [id number] TSH 1.29 {uIU/mL} (Normal) Range: 0.358-3.74 :40 Troponin-I Comments: [address] [place], [place], [id number] TROPONIN-I < 0.015 ng/mL (Normal) Comments: TROPONIN-I EXPECTED VALUES <0.045 Negative 0.045 - 0.590 Consistent with Cardiac Damage > OR = 0.600 Critical Value Not every elevated troponin is indicative of NE. T hesevalues should be used with clinical judgement in examiningthe patient's clinical picture for diagnosis. To establisha diagnosis of NE versus myocardial injury, there must be ademonstrated rise and/ or fall in the troponin values, inaddition to ischemic symptoms, EKG changes, new regionalwall motion abnormality, and/or angiographical evidence. PLEASE NOTE: REFERENCE RANGES EDITED 11/23/1711-Aug-201715-Vhz-659175:00 Rapid Flu (59135 x 2) Influenza A Ag Negative (Normal) 64-Svd-900031:02 METABOLIC PANEL, COMPREHENSIVE Comments: PATIENT NOT FASTINGPERFORMED BY: [facility] [id number] (74727) ALT (SGPT) 22 [iU]/L (Normal) Range: 0-32 [...] Glucose, Serum 81 mg/dL (Normal) Range: 65-99 90-Bvf-180351:02 CBC W/AUTO DIFF WBC (04510) Comments: PATIENT NOT FASTINGPERFORMED BY: [employer]pere70 [facility] [id number] Immature Grans (Abs) 0.0 {x10E3/uL} (Normal) Range: [...] 3.77-5.28 WBC 10.9 {x10E3/uL} (Abnormal) Range: 3.4-10.8 15-Sna-090574:02 PTT (Activated Partial Comments: PATIENT NOT FASTINGPERFORMED BY: JIN [facility]6370 [facility] [id number] Thromboplastin Time) (33187) aPTT 30 {sec} (Normal) Range: 24-33 Comments: This test has not been validated for monitoring unfractionated heparintherapy. aPTT-based therapeutic ranges for unfractionated heparintherapy have not been established. For general guidelines onHeparin monitoring, refer to the [facility] Directory of Services. 61-Svh-991753:02 PT (Prothrobim Time) (63410) Comments: PATIENT NOT FASTINGPERFORMED BY: [facility] Zemtff8872 [address] [facility] [place] [id number] Prothrombin Time 9.8 {sec} (Normal) Range: 9.1-12.0 INR 0.9 (Normal) Range: 0.8-1.2 Comments: Reference interval is for non-anticoagulated patients. . Suggested INR therapeutic range for Vitamin K anta gonist therapy: Standard Dose (moderate intensity therapeutic range): 2.0 - 3.0 Higher intensity therapeutic range 2.5 - 3.5 88-Zgv-662256:35 CALCIFIDIOL (74090) VIT D 25 Comments: PATIENT NOT FASTINGPERFORMED BY: [facility] Dnyfts2545 [address] [facility] [place] [id number] Vitamin D, 25-Hydroxy 30.7 ng/mL (Normal) Range: 30.0-100.0 Comments: Vitamin D deficiency has been defined by the [place] [facility] and an Endocrine Society practice guideline as alevel of serum 25-OH vitamin D less than 20 ng/mL (1,2).The Endocrine Society went on to further define vitamin Dinsufficiency as a level between 21 and 29 ng/mL (2).1. IOM ([place] of Medicine). 2010. Dietary reference intakes for calcium and D. Rodrig[place]: The National Academies Press.2. Chasity MF, Jerson WANG, Sandra PADILLA, et al. Evaluation, treatment, and prevention of vitamin D deficiency: an Endocrine Society clinical practice guideline. JCEM. 2010; 96(7):1911-30. 40-Uur-668668:35 Folate (47207) Comments: PATIENT NOT FASTINGPERFORMED BY: [facility] Eijjcz3587 [address] [facility] [place] [id number] Folate (Folic Acid), Serum >20.0 ng/mL (Normal) Comments: A serum folate concentration of less than 3.1 ng/mL isconsidered to represent clinical deficiency. 57-Ctv-597820:35 VITAMIN B-12 (CYANOCOBALAMIN) Comments: PATIENT NOT FASTINGPERFORMED BY: [facility] Ikhsff6779 [address] [facility] [place] [id number] (30878) Vitamin B12 862 pg/mL (Normal) Range: 211-946 48-Ylk-762376:35 TSH (43910) Comments: PATIENT NOT FASTINGPERFORMED BY: [facility] Mcdfgl5500 [facility] [id number] TSH 0.695 {uIU/mL} (Normal) Range: 0.450-4.500 00-Svp-510201:35 SED RATE ERYTHROCYTE (81119) Comments: PATIENT NOT FASTINGPERFORMED BY: [facility] Tzpshp7309 [facility] [id number] Sedimentation Rate-Westergren 3 mm/h (Normal) Range: 0-32 88-Qmb-838745:35 RHEUMATOID FACTOR-QUANT (90871) Comments: PATIENT NOT FASTINGPERFORMED BY: [facility] Zgyrxq9289 [facility] [id number] RA Latex Turbid. <10.0 {IU/mL} (Normal) Range: 0.0-13.9 89-Tae-570774:35 METABOLIC PANEL, COMPREHENSIVE Comments: PATIENT NOT FASTINGPERFORMED BY: SoftWrit[employer] HoldingsI[facility] Djipcm8770 [facility] [id number] (64493) ALT (SGPT) 13 [iU]/L (Normal) Range: 0-32 [...] Glucose, Serum 95 mg/dL (Normal) Range: 65-99 61-Mum-080812:35 C-REACTIVE PROTEIN (98268) Comments: PATIENT NOT FASTINGPERFORMED BY: Flare CodeHealthSouth - Specialty Hospital of UnionGpxiqb9568 [facility] [id number] C-Reactive Protein, Quant 5.1 mg/L (Abnormal) Range: 0.0-4.9 :35 CBC (AUTO) (94614) Comments: PATIENT NOT FASTINGPERFORMED BY: Flare CodeHealthSouth - Specialty Hospital of UnionMxrczf4209 [facility] [id number] Platelets 312 {x10E3/uL} (Normal) Range: 150-379 RDW 13.1 % (Normal) Range: 12.3-15.4 MCHC 34.3 g/dL (Normal) Range: 31.5-35.7 MCH 28.8 pg (Normal) Range: 26.6-33.0 MCV 84 fL (Normal) Range: 79-97 Hematocrit 43.5 % (Normal) Range: 34.0-46.6 Hemoglobin 14.9 g/dL (Normal) Range: 11.1-15.9 RBC 5.17 {x10E6/uL} (Normal) Range: 3.77-5.28 WBC 11.4 {x10E3/uL} (Abnormal) Range: 3.4-10.8 23-Aes-417745:35 FILIBERTO (ANTINUCLEAR ANTIBODY) Comments: PATIENT NOT FASTINGPERFORMED BY: [facility] HospitalPolymita TechnologiesHealthSouth - Specialty Hospital of UnionXdjywn7756 [facility] [id number] (10503) FILIBERTO Direct Negative (Normal) 2-Rlg-404628:15 Basic Metabolic Profile (BMP) Comments: Test performed at:[facility] [address] [place] [address] GAP 6 (Normal) Range: 5-15 CO2 29.0 [...] <126 mg/dLsuggests IMPAIRED HOMEOSTASIS per A.D.A. criteria. 2-Fsc-044253:15 CBC W/Diff, Automated Comments: Test performed at:[facility] [address] [place] [address] Absolute Lymph 2.64 {X10_3/ul} (Normal) [...] 4.2-5.4 WBC 11.7 K/mm3 (Abnormal) Range: 4.4-11.0 8-Aaa-500299:15 Erythrocyte Sed Rate Comments: Test performed at:[facility] [address] [place] [address] SED RATE 5 mm/h (Normal) Range: 0-20 [...] Procedures ELECTROCARDIOGRAM, COMPLETE (ECG) On: 12-May-2018 Intent (63909)By: Lizeth Whittington DO Comments: NSR poor R wave progression -- inc RBBB--possible lateral ischemia??? tropionin neg in ER Lizeth JORGE Echo CompleteBy: Lizeth Whittington DO On: 12-May-2018 Intent Lizeth Whittington DO CTA CHEST W/W/O CONTRAST (39394)By: On: 12-May-2018 Intent Lizeth Whittington DO, DO, Comments: r/o PE Lizeth HOLTER MONITORING WITH INTERPRETATION On: 12-May-2018 Intent (06010)By: Lizeth Whittington DO Comments: 24hours Lizeth JORGE MRI ANKLE AND FOOT (10392)By: Jared On: 23-Jan-2017 Intent Dianna RODRÍGUEZ ATTENDED SLEEP STUDY (24976)By: On: 07-Nov-2016 Intent Lizeht Whittington DO, DO, Kathleen Ultrasound - Breast - LeftBy: Donaldo On: 19-Oct-2014 Intent Justa JASON MAMMOGRAM, SCREENING, BOTH BREAST On: 19-Oct-2014 Intent (80591)By: Justa Fulton MD Eprescribed prescriptions (G8553)By: On: 28-Apr-2013 Intent Long GI TECH, Kenna L Aerosol Treatment (61703)By: Donaldo On: 14-Apr-2013 Intent Justa JASON Pulse Oximetry (97688)By: Romero On: 14-Apr-2013 Intent GUILHERME EKG (06691)By: Lizeth Whittington DO On: 19-Oct-2012 Intent Lizeth Whittington DO Comments[facility] Instructions Name Dates Details Smoker : [...] CHEST PAIN (786.59) [facility] Payers Medical [facility] TownshipBrianna Bennett; saurav guarantor
--- OUTSIDE RECORDS SUMMARY | 2018-09-29 12:31 | XMS RPT_ITS | Continuity of Care Document ---
:1975 Author Organization [facility] Address [address] [place] [address] Phone Care Team Providers Name Role Phone Lizeth Whittington DO Unavailable Dr. Irvin Wang Unavailable Dr. Jesus Alberto Benito Unavailable JOANN Viera Unavailable Unavailable Unavailable Unavailable Problems Name Dates Details Abnormal CXR (R93.89, 793.2) Status: Active Abnormal EKG (R94.31, 794.31) Comments: in ER read by Dr Hall Status: Active Abortions/Miscarriages Comments: 1. Status: Active BMI 33.0-33.9,adult (Z68.33, V85.33) Status: Active BMI 34.0-34.9,adult (Z68.34, V85.34) Status: Active CHEST PAIN (R07.9, 786.59) Status: Active Dizzy (R42, 780.4) Status: Active Dizzy spells (R42, 780.4) Comments: assoc with exercise-??-- low bs? dropped bp? orhtos neg -- need HUT?-- ck sugar accuck when happens Status: Active Encounter for screening mammogram for breast cancer (Renamed from Encounter for screening mammogram for malignant neoplasm of breast) (Z12.31, V76.12) Status: Active Family history of breast cancer (Z80.3, V16.3) Comments: 2- maternal aunts Status: Active Family history of colon cancer (Z80.0, V16.0) Comments: moms sister- 40 y/o Status: Active Family history of leukemia (Z80.6, V16.6) Comments: cousin Status: Active Family history of lymphoma (Z80.7, V16.7) Comments: mother and recurred 4times Status: Active Fibromyalgia (M79.7, 729.1) Status: Active Heart murmur (R01.1, 785.2) Status: Active History of TIA (transient ischemic attack) (Z86.73, V12.54) Comments: 2009 roughly Status: Active History of ulcer disease (Renamed from H/O ulcer disease) (Z87.898, V13.89) Comments: gastric Status: Active Influenza vaccination declined (Renamed from Refused influenza vaccine) (Z28.21, V64.06) Status: Active Migraine (G43.909, 346.90) Status: Active Multiple pulmonary emboli (I26.99, 415.19) Comments: billateral-- dx 05/12/18 -- Status: Active Peanut allergy (V15.01) Status: Active Pregnancies () Comments: 4. Status: Active Quit smoking (Z87.891, V15.82) Status: Active Sleep apnea (G47.30, 780.57) Comments: Will see Sibilia abnormal sleep studyneeds trial of cpap Status: Active Smoker (F17.200, 305.1) Status: Active SOB (shortness of breath) (R06.02, 786.05) Status: Active Tachycardia (R00.0, 785.0) Status: Active Unspecified Diagnosis Status: Active Vaginal Delivery Comments: [id number] Status: Active Weight gain (R63.5, 783.1) Status: Active Medications Name Dates Details Eliquis 5 MG Oral Tablet 1 Tablet bid for 30 days Quantity: 60 {Tablet} Refills: 2 Ordered:20-May-2018 Ge Whittington DO, DO, Kathleen Start : 20-May-2018 Active Comments:started 05-12-18 EpiPen 2-Bob 0.3 MG/0.3ML Injection Solution Auto-injector 1 Device uad for 0 days Quantity: 1 {Milliliter} Refills: 0 Ordered:04-Aug-2017 Chelita Viera LPN Start : 04-Aug-2017 Active Proventil HFA 108 (90 Base) MCG/ACT Inhalation Aerosol Solution 1 Aerosol Soln 1-2 puffs every 6 horus prn for 90 days Quantity: 1 {QS} Refills: 3 Ordered:04-Aug-2017 Chelita Viera LPN Start : 04-Aug-2017 Active Augmentin 875-125 MG Oral Tablet 1 [...] uad for 0 days Refills: 0 Ordered:28-Apr-2013 Kenna Delgado LPN Start : 14-Apr-2013 End : 28-Apr-2013 Inactive Comments:2 a d for 5 d, 1 a d for 5d, 1/2 a d for 5 d TraMADol HCl 50 MG Oral Tablet 1 (one) Tablet q8hrs prn for 0 days Quantity: 10 {Tablet} Refills: 0 Ordered:04-Aug-2017 Chelita Viera LPN Start : 23-Jan-2017 End : 04-Aug-2017 Inactive Comments:per ER Zithromax Z-Bob 250 MG Oral Tablet 1 (one) Tablet TAD for 0 days Quantity: 1 {Package} Refills: 0 Ordered:20-May-2018 Chelita Viera LPN Start : 18-Aug-2017 End : 20-May-2018 Inactive Allergies and Adverse Reactions Name Dates Details [...] (Renamed from Encounter for pre-operative examination) (Z01.818, V72.84) Status: Inactive as of 12-May-2018 Pre-operative examination (Z01.818, V72.84) Status: Inactive as of 14-Apr-2013 Sinus pressure (J34.89, 478.19) Status: Inactive as of 12-May-2018 Procedures Procedure Dates Details Colonoscopy Completed Comments: 2011 Colonoscopy, Screening Completed Comments: 2011 D&C Completed Comments: 2002 Hysterectomy Completed Comments: 2003 Mammogram, Screening Completed Comments: 2005 Pap Smear Completed Comments: 2003 Tubal Ligation Completed Comments: 1995 Tubes in ears Completed Comments: 1980 Date Value Details 19-May-2018 12 Lead Electrocardiogram Result: Comments: See Note; NOTES: [facility] Cardiovascular Services [address] [place] [address] 12 Lead EKG 05/12/18 1910 MR#: [id number] Acct: [id number] Name: BRIANNA BENNETT p #: [id number] : 1975 42 From: Javier Christianson MD Attending Dr: Status: DEP ER Ordering Dr: Cody Sheikh MD Date: 05/12/18 Location: ED Sex: F C Admitted: Test Reason : CP Blood Pressure : / * mmHG Vent. Rate : 115 BPM Atrial Rate : 115 BPM P-R Int : 160 ms QRS Dur : 084 ms QT Int : 328 ms P-R-T Axes : 062 025 037 degrees QTc Int : 453 ms Sinus tachycardia Possible Anterolateral infarct , age undetermined Abnormal ECG Confirmed by JAVIER CHRISTIANSON MD ([id number]), food editor JAMAL ADAMS ([id number]) on 05/19/2018 2:25:35 PM Referred By: Lizeth Whittington Confirmed By:JAVIER CHRISTIANSON MD 05/19/18 1425 Date Javier Christianson MD CC: Cody Sheikh MD; Lizeth Whittington DO Signed 13-May-2018 Echo, Complete w/ Contrast Result: Comments: See Note; NOTES: [facility] Cardiovascular Services [address] [place] [address] Echo Complete W/ Contrast 05/13/18 1102 MR#: [id number] Acct: [id number] Name: BRIANNA SHAIKH Rep #: [id number] : 1975 42 From: Vinh Hall MD Attending Dr: Lizeth Whittington DO Status: REG CLI Ordering Dr: Lizeth Whittington DO Date: 05/13/18 Location: CVS Sex: F C Admitted: Reason For Study: Murmur Procedure This was a 2D Doppler, Color Flow transthoracic echocardiogram. The study was technically limited. Contrast injection was performed. Exam performed in department. Left Ventricle Normal LV size. Mild concentric left ventricular hypertrophy. Left ventricular systolic function is hyperdynamic. The estimated ejection fraction is 75 %. No evidence for diastolic dysfu nction. No regional wall motion abnormalities noted. Right Ventricle Normal RV size. Normal systolic function. Atria Normal left atrium. Normal right atrium. No doppler evidence for ASD. Bubble contr ast study negative for right to left interatrial shunt. Mitral Valve There is no mitral annular calcification. Normal mitral valve. Trivial mitral valve insufficiency. Tricuspid Valve Normal tricuspid valve. Trivial tricuspid valve insufficiency. Unable to estimate RV systolic pressure/pulmonary artery pressure due to technically difficult study. Aortic Valve Trisinus/trileaflet aortic valve. Mild focal aortic valve thickening. Pulmonic Valve The pulmonic valve is not well visualized. Trivial pulmonic valve insufficiency. Great Vessels Normal sized aortic root. Pericardium/Pleural No pericard ial effusion. Medication 22 gauge I.V. with prn adaptor inserted into right arm. Diluted definity 2ml given slow IV push to enhance endocardial definition. Performed a rapid injection of agitated mix o f 9 cc saline and 1cc air to assess for atrial septal defect. MMode/2D Measurements AND Calculations LVIDd: 3.5 cm IVSd: 1.4 cm Ao root diam: 3.1 cm LVIDs: 2.2 cm LVPWd: 1.4 cm FS: 37.4 % LAV(MOD- bp): 57.7 ml LVAd ap4: 25.4 cm2 SV(MOD-sp4): 57.0 ml LAV(MOD-bp) Indexed: 28.7 ml/m2 EDV(MOD-sp4): 72.1 ml LAV(MOD-sp2): 63. 7 ml EDV(sp4-el): 72.9 ml LAV(MOD-sp4): 51.6 ml LVAs ap4: 9.4 cm2 ESV(MOD-sp4): 15.2 ml ESV(sp4-el): 14.8 ml EF(MOD-sp4): 79.0 % EF(sp4-el): 79.7 % SV(sp4-el): 58.1 ml LA A4 area: 18.3 cm2 RA A4 area: 13.8 cm2 Time Measurements MV dec time: 0.18 sec Doppler Measurements AND Calculations MV E max gonzález: 71.2 cm/sec Lat Peak E' González: 12.4 cm/sec Med Peak E' González: 7.3 cm/sec MV A max gonzález: 71.2 cm/sec E/E' lat: 5.8 E/E' med: 9.7 MV E/A: 1.0 MV V2 max: 93.8 cm/sec MV P1/2t max gonzález: 92.5 cm/sec Ao V2 max: 172.7 cm/sec MV max P.5 mmHg MV P1/2t: 43.0 msec Ao max P.9 mmHg MV V2 mean: 55.6 cm/sec MV dec slope: 630.1 cm/sec2 Ao V2 mean: 120.8 cm/sec MV mean P.5 mmHg MVA(P1/2t): 5.1 cm2 Ao mean P.6 mmHg MV V2 VTI: 16.6 cm Ao V2 VTI: 32.7 cm LV V1 m ax: 162.9 cm/sec PA V2 max: 131.9 cm/sec LV V1 max P.6 mmHg LV V1 mean P.6 mmHg LV V1 mean: 98.9 cm/sec LV V1 VTI: 30.2 cm Interpretation Summary The study was technically limited. Contrast i njection was performed. Left ventricular systolic function is hyperdynamic. The estimated ejection fraction is 75 %. Mild concentric left ventricular hypertrophy. Trivial mitral valve insufficiency. Tr ivial tricuspid valve insufficiency. Mild focal aortic valve thickening. Trivial pulmonic valve insufficiency. Unable to estimate RV systolic pressure/pulmonary artery pressure due to technically diffic ult study. No evidence for diastolic dysfunction. Bubble contrast study negative for right to left interatrial shunt. __ Ordering Physician: Lizeth Whittington Referring Physician: Lizeth Whittington Performed By: Greg Juarez RCS 05/13/18 1313 Date Vinh Hall MD CC: Lizeth Whittington DO Date Dictated: 05/13/18 1102 Date Transcribed: 05/13/18 1313 Gravel Screener: Signed 13-May-2018 Discharge Instruction Result: Comments: See Note; NOTES: [facility] Medical Records Department [address] [place] [address] Discharge Instruction 05/12/18 2158 MR#: [id number] Acct: [id number] Name: Marii BENNETT Rep #: [id number] : 1975 42 From: Cody Sheikh MD PCP: Lizeth Whittington DO Status: DEP ER ED Disposition - Plan for ED Patient: Chief Complaint: Chest Pain Instructions: Pulmonary Em bolism Prescriptions: Apixaban [Eliquis] 10 mg PO BID 7 Days #74 tab Referrals: Lizeth Whittington DO [Primary Care Provider] - What to do if you have Problems For any increased pain, shortness of kal[place] ath, bleeding, nausea or vomiting, chest pain, or any unexpected problems, contact your Primary Care Provider. Call [facility] ([phone]) or report to the closest Emergency Room. Call 911 if n harvey. 05/13/18 0022 <Electronically signed by Cody Sheikh MD> Date Cody Sheikh MD Cosigner Signature (If Indicated): Date ___ CC: Lizeth Whittington DO 13-May-2018 Emergency Department Summary Result: Comments: See Note; NOTES: [facility] Medical Records Department [address] [place] [address] Emergency Department Summary 05/12/18 2155 MR#: [id number] Acct: [id number] Name: BRIANNA BENNETT Rep #: [id number] : 1975 42 From: Cody Sheikh MD PCP: Lizeth Whittington DO Status: DEP ER - ER Visit Summary Date of Service: 05/12/18 Chief Complaint: PE History of Present Illness: The patient is a 42 F referred by her PCP for bilateral pulmonary emboli. Patient was seen for chest pain and shortness of breath. She had a CTA done today. Based on the results, she was referr ed directly to the emergency department. She does have some chest tightness and mild shortness of breath. She has a history of MS, fibromyalgia, and Carson's disease. She is a smoker. Denies hormone me dications. Denies recent surgery or immobilization. Denies any history of PE or DVT. Physical Examination: Blood pressure 149/99. Heart rate 105. Afebrile. No acute distress. Sitting and breathing comf ortably. Heart tachycardic but regular. Lungs clear. Abdomen soft. Calves soft and supple. Test Results: EKG showed sinus rhythm at a rate of 115. Ultrasound of her lower extremities showed nothing acu te. White count 14.7. Glucose 107. Coags normal. Troponin normal. Previous test negative. Emergency Department Course and Treatment: Patient was discussed with Dr. Whittington. Patient would like to go home . I believe she is appropriate for outpatient therapy and her PCP agreed. PESI is very low risk. Her PCP recommended treatment with Eliquis. She has an echocardiogram scheduled for tomorrow. Her vitals are tachycardic but otherwise normal. Risks of PE were discussed. Patient will return for new or worsening issues. Risks of bleeding were discussed. She will not take part in any risky activities. No an ti-inflammatories. Return right away for trauma or any bleeding. Treatment Plan: As above Disposition: Discharged Impression: 1. Bilateral pulmonary emboli This note was generated with [employer] software. It may contain incorrect words, spelling, and punctuation that were not noted in review of the chart prior to signing ED Disposition - Plan for ED Patient: Chief Complaint: Chest Pain Referrals: Lizeth Whittington, DO [Primary Care Provider] - What to do if you have Problems For any increased pain, shortness of breath, bleeding, nausea or vomiting, chest pain, or any unexpected pro blems, contact your Primary Care Provider. Call [facility] ([phone]) or report to the closest Emergency Room. Call 911 if necessary. 05/13/18 0022 <Electronically signed by Cody lopez MD> Date Cody Sheikh MD Cosigner Signature (If Indicated): Date CC: Lizeth Whittington DO 12-May-2018 Venous Duplex Imag/Mariusz Extrem Result: Comments: See Note; NOTES: [facility] Imaging Services [address] [place] [address] Venous Duplex Imag/Mariusz Extrem MR#: [id number] Acct: [id number] Name: BRIANNA BENNETT Rep # : [id number] : 1975 F 42 From: Nasir Coppola DO PCP: Lizeth Whittington DO Status: [facility] Study: Venous Duplex Imag/Mariusz Extrem Date of Exam: 05/12/18 Exam# [id number] Ordering Dr: Cody Sheikh MD STUD Y: VENOUS DOPPLER ULTRASOUND - BILATERAL LOWER EXTREMITIES REASON FOR EXAM: Female, 42 years old. PE, chest pain TECHNIQUE: Ultrasound evaluation of the deep vein system to include chambers-scale imaging and compression was performed. Chambers-scale imaging and Doppler sonographic evaluation, including duplex spectral analysis and qualitative color flow sonography, was performed. COMPARISON: None. FINDINGS: RIGHT LEG Common Femoral Vein: Normal compression, spontaneity and augmentation. Normal color Doppler. Common Femoral Vein/Greater Saphenous Junction: Normal comp ression. Femoral Proximal: Normal compression. Femoral Middle: Normal compression, spontaneity and augmentation. Normal color Doppler. Femoral Distal: Normal compression. Popliteal Vein: Normal compre ssion, spontaneity and augmentation. Normal color Doppler. Posterior Tibial Vein: Normal compression. Peroneal Vein: Normal compression. LEFT LEG Common Femoral Vein: Normal compression, spontaneity a nd augmentation. Normal color Doppler. Common Femoral Vein/Greater Saphenous Junction: Normal compression. Femoral Proximal: Normal compression. Femoral Middle: Normal compression, spontaneity and augm entation. Normal color Doppler. Femoral Distal: Normal compression. Popliteal Vein: Normal compression, spontaneity and augmentation. Normal color Doppler. Posterior Tibial Vein: Normal compression. P eroneal Vein: Normal compression. US/Venous Duplex Imag/Mariusz Extrem IMPRESSION: Normal venous Doppler ultrasound of the bilateral lower extremiti es. Electronically Signed: Nasir Coppola DO at 20:15 EDT Tel [phone], Service support , CC: Cody Sheikh MD; Lizeth Whittington DO Gravel Screener: Signed 12-May-2018 CTA Chest W/WO Contrast Result: Comments: See Note; NOTES: [facility] Imaging Services [address] [place] [address] CTA Chest W/WO Contrast MR#: [id number] Acct: [id number] Name: BRIANNA BENNETT Rep #: [id number] : 1975 F 42 From: Andrés Li MD PCP: Lizeth Whittington DO Status: REG CLI Study: CTA Chest W/WO Contrast Date of Exam: 05/12/18 Exam# [id number] Ordering Dr: Lizeth Whittington DO UDY: CTA [...] left upper lobe pulmonary arteries. Electronically Signed: Andrés Li MD at 15:13 EDT Tel [phone], Service support , CC: Lizeth Whittington DO Gravel Screener: Signed 07-May-2018 12 Lead Electrocardiogram Result: Comments: See Note; NOTES: [facility] Cardiovascular Services [address] [place] [address] 12 Lead EKG 05/04/18 1326 MR#: [id number] Acct: [id number] Name: BRIANNA BENNETT Re p #: [id number] : 1975 42 From: Vinh Hall MD [...] Abnormal ECG Confirmed by RAFAEL JASON, VINH ([id number]), food editor JAMAL ADAMS ([id number]) on 05/07/2018 1:06:22 PM Referred By: PARVEZ/ALPHONSE Confirmed By: VINH HALL MD 05/07/18 1306 Date Vinh Hall MD CC: Cody Landa DO; Lizeth Whittington DO Signed 04-May-2018 Emergency Department Summary Result: Comments: See Note; NOTES: [facility] Medical Records Department [address] [place] [address] Emergency Department Summary 05/04/18 1421 MR#: [id number] Acct: [id number] Name: BRIANNA BENNETT Rep #: [id number] : 1975 42 From: Cody Landa DO [...] 2. Dyspnea This note was generated with [employer] dictation software. It may contain incorrect wor ds, spelling, and punctuation that were not noted in review of the chart prior to signing ED Disposition - Plan for ED Patient: Disposition: Home or Assisted Living Chief Complaint: Shortness of [place] th Instructions: Walking Pneumonia Prescriptions: Azithromycin [Zithromax Z-Bob] 250 mg PO UD #1 box Referrals: Lizeth Whittington DO [Primary Care Provider] - As soon as possible What to do if you hav e Problems For any increased pain, shortness of breath, bleeding, nausea or vomiting, chest pain, or any unexpected problems, contact your Primary Care Provider. Call [facility] ([phone]) or report to the closest Emergency Room. Call 911 if necessary. 05/04/18 1544 <Electronically signed by Cody Landa DO> Date Cody fernandez DO Cosigner Signature (If Indicated): Date CC: Lizeth Whittington DO 04-May-2018 Chest PA and Lateral Result: Comments: See Note; NOTES: [facility] Imaging Services [address] [place] [address] Chest PA and Lateral MR#: [id number] Acct: [id number] Name: BRIANNA BENNETT Rep #: [id number] : 1975 F 42 From: Andrés Li MD PCP: Lizeth Whittington DO Status: [facility] ER Study: Chest PA and Lateral Date of Exam: 05/04/18 Exam# [id number] Ordering Dr: Cody Landa DO STUDY: X-RA [...] Andrés Li MD at 14:57 EDT Tel [phone], Service support , CC: Cody Landa DO; Lizeth Whittington DO Gravel Screener: Signed 13-Aug-2017 12 Lead Electrocardiogram Result: Comments: See Note; NOTES: [facility] Cardiovascular Services [address] [place] [address] 12 Lead EKG 08/12/17 1147 MR#: [id number] Acct: [id number] Name: BRIANNA BENNETT Rep #: [id number] : 1975 41 From: Cody Barone MD Attending Dr: Irvin Wang DPM Status: PRE NDC Ordering Dr: Irvin Wang DPM Date: 08/12/17 Location: [facility] Sex: F C Admitted: Test Reason : [...] Abnormal ECG Confirmed by CODY BARONE ([id number]), food editor JAMAL ADAMS ([id number]) on 08/13/2017 11:38:07 AM Referred By : Irvin Wang Confirmed By:CODY BARONE 08/13/17 1138 Date Cody Barone MD CC: Irvin Wang DPM; Lizeth Whittington DO Signed 01-Jul-2017 Lower Ext Joint Only (Routine) Result: Comments: See Note; NOTES: [facility] Imaging Services [address] [place] [address] Lower Ext Joint Only (Routine) MR#: [id number] Acct: [id number] Name: BRIANNA BENNETT Rep #: [id number] : 1975 F 41 From: Leoncio Saini MD PCP: Lizeth Whittington DO Status: REG CLI Study: Lower Ext Joint Only (Routine) Date of Exam: 07/01/17 Exam# [id number] Ordering Dr: Paty Wang DPM STUDY: MRI [...] CC: Irvin Wang DPM; Lizeth Whittington DO Gravel Screener: Signed 03-Apr-2017 Re-Evaluation - PT (1) Result: Comments: See Note; NOTES: [facility] Physical Therapy [facility] [address] [place] [address]. [address] [place], [place] [address] Fax REEVALUATION / MEDICARE RECERTI FICATION PHYSICAL THERAPY MR#: [id number] Acct: [id number] Name: BRIANNA BENNETT Rep #: [id number] : 1975 41 From: Magalys Patel DPT Referring DrZaida: Dianna Coleman Status: REG RCR Insurance: MED [facility] TPA Dianna Coleman, It has been [...] do not hesitate to contact me at [phone] by phone or if you have questions or concerns regarding this new plan of care! Sincerely, Magalys Patel <Electronically signed by Magalys Patel DPT> 04/03/17 0917 CC: Dianna Coleman; Lizeth Whittington DO ELR Signed For Medicare only, by signing this I certify the plan of care. Physicians Signature Date 04-Mar-2017 Inital Evaluation (1) - PT Result: Comments: See Note; NOTES: [facility] Physical Therapy [facility] [address] [place], [place] [address] Fax REHABILITATION SERVICES INITIAL EVALUATION MR#: [id number] Acct: [id number] Name: BRIANNA BENNETT Rep #: [id number] : 1975 41 From: Magalys Patel DPT Referring Dr.: Dainna Coleman Status: REG RCR Insurance: MED [facility] BRIANNA BENNETT is [...] thinks possible stress fractures. Wear the boot accounts manager except for an hour in the [...] if she moves around to much. 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 For Medicare and [facility] HMO plans, please review the plan of care and approve it. It will need to be FAXED BACK to us at [phone] for Medicare purposes. Please let me know if there are questions or concerns regardi ng this plan of care. Physician Signature: Date: <Electronically signed by Magalys Patel DPT> 03/04/17 1045 CC: Dianna alvarez; Lizeth Whittington DO ELR Signed For Medicare only, by signing this I certify the plan of care. Physicians Signature Date 07-Jan-2017 Emergency Department Summary Result: Comments: See Note; NOTES: [facility] Medical Records Department [address] [place] [address] Emergency Department Summary MR#: [id number] Acct: [id number] Name: VAZQUEZ BENNETT Rep #: [id number] : 1975 41 From: Demetrio Toscano MD PCP: Lizeth Whittington DO Status: DEP ER DATE OF SERVICE: 01/04/2017 CHIEF COMPLAINT: [...] C: Lizeth Whittington DO T: NTS JOB: [id number] 01/07/17 0806 <Electronically signed by Demetrio Toscano MD> Date Demetrio Toscano MD Cosigner Signature (If Indicated): Date CC: Lizeth Whittington DO Date Dictated: 01/05/1733 Date Transcribed: 01/05/1733 Gravel Screener: Signed 23-Oct-2014 Bilat Diag Digital AND CAD Result: Comments: See Note; NOTES: [facility] Imaging Services [address] [place] [address] Breast Imaging Report MR#: [id number] Acct: [id number] Name: BRIANNA BENNETT Rep #: [id number] : 1975 F 39 From: Andrés Li MD PCP: Justa Fulton MD Status: [facility] Study: Bilat Diag Digital AND CAD Date of Exam: 10/23/14 Exam# [id number] Ordering Dr: Justa Fulton MD MAMMOGRAPHY - [...] Andrés Li MD at 8:43 EDT Tel [phone], Service support [phone], Fax CC: Justa Fulton MD Gravel Screener: Signed 23-Oct-2014 Breast Limited Unilateral Result: Comments: See Note; NOTES: [facility] Imaging Services [address] [place] [address] Ultrasound Report MR#: [id number] Acct: [id number] Name: BRIANNA BENNETT Rep #: [id number] : 1975 F 39 From: Andrés Li MD PCP: Justa Fulton MD Status: REG CLI Study: Breast Limited Unilateral Date of Exam: 10/23/14 Exam# [id number] Ordering Dr: Justa Fulton MD S TUDY: [...] Andrés Li MD at 9:50 EDT Tel [phone], Service support [phone], CC: Justa Fulton MD Gravel Screener: Signed 23-Jul-2014 Emergency Department Summary Result: Comments: See Note; NOTES: [facility] Medical Records Department [address] [place] [address] Emergency Department Summary MR#: [id number] Acct: [id number] Name: BRIANNA BENNETT Rep #: [id number] : 1975 38 From: Josh Lagunas MD PCP: Justa Fulton MD Status: [facility] ER DATE OF SERVICE: 07/19/2014 [...] Dr. Josh Lagunas MD T: NTS JOB: [id number] 07/23/14 2241 <Electronically signed by Josh Lagunas MD> Date Josh Lagunas MD CC: Justa Fulton MD Date Dictated: 07/19/141610 Date Transcribed: 07/19/141610 Gravel Screener: Signed 19-Jul-2014 Discharge Instruction Result: Comments: See Note; NOTES: [facility] Medical Records Department [address] [place] [address] Discharge Instruction 07/19/141611 MR#: [id number] Acct: [id number] Name: BRIANNA BENNETT Rep #: [id number] : 1975 38 From: Josh Lagunas MD PCP: Justa Fulton MD Status: REG ER ED Disposition - Plan for ED Patient: Chief Complaint: Headache Instructions: ED Headache, Unspecified What to do if you have Problems For any increased pain, shortness of breath, bleeding, nausea or vomiting, chest pain, or any unexpected problems, contact your doctor. Call [facility] ) or report to the closest Emergency Room. Call 911 if necessary. 07/19/14 1612 <Electronically signed by Josh Lagunas MD> Date Josh Lagunas MD Cosigner Signature (If Indicated): Date CC: Justa Fulton MD 19-Jul-2014 Brain/Head without Contrast Result: Comments: See Note; NOTES: [facility] Imaging Services [address] [place] [address] CAT Scan Report MR#: [id number] Acct: [id number] Name: BRIANNA BENNETT Rep #: [id number] : 1975 F 38 From: Andrés Li MD PCP: Justa Fulton MD Status: REG ER Study: Brain/Head without Contrast Date of Exam: 07/19/14 Exam# [id number] Ordering Dr: Josh Lagunas MD STUDY: CT [...] Normal visualized paranasal sinuses. IMPRESSION: No ac kwethluk abnormality is seen. Electronically Signed: Andrés Li MD at 15:47 EST Tel [phone], Service support [phone], CC: Justa Fulton MD; Josh Lagunas MD Gravel Screener: Signed Family History Unknown Family Member Name [...] smoker Vital Signs Date Test Result Details :05 Pulse 85 /min Comments: Pattern: Regular O2 SAT 95 % Comments: Room air BP Systolic 122 mm[Hg] Comments: Patient Position: Sitting; Cuff Location: Left Arm; Cuff Size: Large BP Diastolic 70 mm[Hg] Comments: Patient Position: Sitting; Cuff Location: Left Arm; Cuff Size: Large Weight 214 lb Height 66.5 in Body Mass Index Calculated 34.02 kg/m2 Body Surface Area Calculated 2.07 m2 :22 Pulse 95 /min Comments: Pattern: Regular Respiration [...] kg/m2 Body Surface Area Calculated 2.06 m2 98-Rzd-933482:18 Temperature 97.5 f Pulse 91 /min Comments: [...] kg/m2 Body Surface Area Calculated 2.05 m2 :46 Pulse 88 /min Comments: Pattern: Regular Respiration [...] 1.98 m2 Results Date Description Value Details 97-Wnq-718157:18 Basic Metabolic Profile (BMP) Comments: [facility] [address] [place], [place], [address] GAP 9 (Normal) Range: 5-15 CO2 26.0 mmol/L (Normal) Range: 21.0-32.0 CL 105 mmol/L (Normal) Range: 98-107 K 3.7 mmol/L (Normal) Range: 3.5-5.1 NA 140 mmol/L (Normal) Range: 136-145 CA 9.2 mg/dL (Normal) Range: 8.5-10.1 BUN/CRE 21.4 {RATIO} (Abnormal) Range: 10-20 Estimated CRCL 120.01 ml/min (Normal) EST GFR - AA 151 mL/min (Normal) Comments: GFR Calc EST GFR 125 mL/min (Normal) Comments: Non- GFR Calc CREAT,SERUM 0.56 mg/dL (Normal) Range: 0.55-1.02 Comments: The validity of the calculated GFR AND GFRAA in patients over70 years has not been determined. Clinical correlation isessential. BUN 12 mg/dL (Normal) Range: 7-18 GLU 107 mg/dL (Abnormal) Range: 74-106 Comments: Fasting Glucose result from 100 to 125 mg/dLsuggests IMPAIRED HOMEOSTASIS per A.D.A. criteria.Please note revised GLUCOSE reference range ystcuybzz17/02/2018. 60-Aeh-986463:18 Troponin-I Comments: [facility] [address] [place], [address] TROPONIN-I < 0.015 ng/mL (Normal) Comments: TROPONIN-I EXPECTED VALUES <0.045 Negative 0.045 - 0.590 Consistent with Cardiac Damage > OR = 0.600 Critical Value Not every elevated troponin is indicative of MN. T hesevalues should be used with clinical judgement in examiningthe patient's clinical picture for diagnosis. To establisha diagnosis of MN versus myocardial injury, there must be ademonstrated rise and/ or fall in the troponin values, inaddition to ischemic symptoms, EKG changes, new regionalwall motion abnormality, and/or angiographical evidence. PLEASE NOTE: REFERENCE RANGES EDITED 17:15 CBC W/Diff, Automated Comments: [facility] [address] [place], [place], [id number] Absolute Lymph 3.67 {X10_3/ul} (Normal) Range: 0.83-4.51 Absolute Neut 9.8 {X10_3/uL} (Abnormal) Range: 2.0-7.7 IM GRAN % 0.200 % (Normal) Range: 0.0-0.9 Comments: IG% - Immature Granulocytes (promyelocytes, myelocytes andmetamyelocytes) > 1% indicates that a LEFT SHIFT is Present. BASO% 0.4 % (Normal) Range: 0-1 EO% 2.1 % (Normal) Range: 0-5 MONO% 5.6 % (Normal) Range: 0-10 LY% 24.9 % (Normal) Range: 19-41 NEUT% 66.8 % (Normal) Range: 47-70 MPV 9.9 fL (Normal) Range: 6.2-12.0 PLT 275 K/mm3 (Normal) Range: 150-450 RDW SD 41.7 fL (Normal) Range: 35.1-43.9 RDW CV 13.2 % (Normal) Range: 11.6-14.6 MCHC 33.8 {g/gl} (Normal) Range: 32-36 MCH 29.4 pg (Normal) Range: 27.0-32.0 MCV 86.9 fL (Normal) Range: 81-99 HCT 45.3 % (Normal) Range: 37-47 HGB 15.3 g/dL (Abnormal) Range: 12.0-15.0 RBC 5.21 {M/mm3} (Normal) Range: 4.2-5.4 WBC 14.7 K/mm3 (Abnormal) Range: 4.4-11.0 :15 Partial Thromboplast Time Comments: [facility] [address] [place], [place], [phone] PTT 35.2 s (Normal) Range: 24.1-36.2 86-Ypj-396089:15 ,Serum,hCG Quali. Comments: [facility] [address] [place], [address] HCGSQUAL NEGATIVE {Negative} (Normal) Range: 0-9 Nonpreg HCG Qual triggr 1 m[iU]/mL (Normal) 04-Zav-571917:15 Prothrombin Time w/INR Comments: [facility] [address] [place], [address] INR 0.9 (Normal) PROTIME 12.6 s (Normal) Range: 11.7-14.9 76-Yyn-492839:40 Basic Metabolic Profile (BMP) Comments: [facility] [address] [place], [address] GAP 6 (Normal) Range: 5-15 CO2 29.0 [...] A.D.A. criteria.Please note revised GLUCOSE reference range aztwavurj13/02/2018. 69-Ufh-056525:40 CBC W/Diff, Automated Comments: [facility] [address] [place], [address] Absolute Lymph 3.04 {X10_3/ul} (Normal) Range: 0.83-4.51 [...] 4.2-5.4 WBC 11.6 K/mm3 (Abnormal) Range: 4.4-11.0 06-Kie-222039:40 D-Dimer Quantitative (DVT/PE) Comments: [facility] [address] [place], [place], [address] D-DIMER QUANT 0.44 {FEU/ug/m} (Normal) Range: 0.27-0.49 Comments: NORMAL D-Dimer level (<0.50) indicates no DVT or PE. 82-Vuz-810623:40 Thyroid Stim Hormone (TSH) Comments: [facility] [address] [place], [address] TSH 1.29 {uIU/mL} (Normal) Range: 0.358-3.74 24-Auw-563470:40 Troponin-I Comments: [facility] [address] [place], [place], [address] TROPONIN-I < 0.015 ng/mL (Normal) Comments: TROPONIN-I EXPECTED VALUES <0.045 Negative 0.045 - 0.590 Consistent with Cardiac Damage > OR = 0.600 Critical Value Not every elevated troponin is indicative of MN. T hesevalues should be used with clinical judgement in examiningthe patient's clinical picture for diagnosis. To establisha diagnosis of MN versus myocardial injury, there must be ademonstrated rise and/ or fall in the troponin values, inaddition to ischemic symptoms, EKG changes, new regionalwall motion abnormality, and/or angiographical evidence. PLEASE NOTE: REFERENCE RANGES EDITED 11/23/1711-Aug-201791-Ljm-186758:00 Rapid Flu (60648 x 2) Influenza A Ag Negative (Normal) 68-Dgp-380120:02 METABOLIC PANEL, COMPREHENSIVE Comments: PATIENT NOT FASTINGPERFORMED BY: [facility] [address] [facility] [id number] (43676) ALT (SGPT) 22 [iU]/L (Normal) Range: 0-32 [...] Glucose, Serum 81 mg/dL (Normal) Range: 65-99 37-Ugd-630054:02 CBC W/AUTO DIFF WBC (16277) Comments: PATIENT NOT FASTINGPERFORMED BY: [facility] [address]6 [facility] [id number] Immature Grans (Abs) 0.0 {x10E3/uL} (Normal) Range: [...] 3.77-5.28 WBC 10.9 {x10E3/uL} (Abnormal) Range: 3.4-10.8 12-Shn-869256:02 PTT (Activated Partial Comments: PATIENT NOT FASTINGPERFORMED BY: [facility]6[address] [facility] [id number] Thromboplastin Time) (46870) aPTT 30 {sec} (Normal) Range: 24-33 Comments: This test has not been validated for monitoring unfractionated heparintherapy. aPTT-based therapeutic ranges for unfractionated heparintherapy have not been established. For general guidelines onHeparin monitoring, refer to the [facility] Directory of Services. 99-Mcr-718140:02 PT (Prothrobim Time) (64211) Comments: PATIENT NOT FASTINGPERFORMED BY: [facility]6[address] [facility] [id number] Prothrombin Time 9.8 {sec} (Normal) Range: 9.1-12.0 INR 0.9 (Normal) Range: 0.8-1.2 Comments: Reference interval is for non-anticoagulated patients. . Suggested INR therapeutic range for Vitamin K anta gonist therapy: Standard Dose (moderate intensity therapeutic range): 2.0 - 3.0 Higher intensity therapeutic range 2.5 - 3.5 82-Vhn-734619:35 CALCIFIDIOL (29496) VIT D 25 Comments: PATIENT NOT FASTINGPERFORMED BY: [facility]6[address] [facility] [id number] Vitamin D, 25-Hydroxy 30.7 ng/mL (Normal) Range: 30.0-100.0 Comments: Vitamin D deficiency has been defined by the [place] ofMedicine and an Endocrine Society practice guideline as alevel of serum 25-OH vitamin D less than 20 ng/mL (1,2).The Endocrine Society went on to further define vitamin Dinsufficiency as a level between 21 and 29 ng/mL (2).1. IOM ([place] of Medicine). 2010. Dietary reference intakes for calcium and D. Rodrig[place]: The National Academies Press.2. Chasity MF, Jerson [place], Sandra PADILLA, et al. Evaluation, treatment, and prevention of vitamin D deficiency: an Endocrine Society clinical practice guideline. JCEM. 2010; 96(7):1911-30. :35 Folate (04798) Comments: PATIENT NOT FASTINGPERFORMED BY: CB [facility] [address]mbf[address]ublin [place] [id number] Folate (Folic Acid), Serum >20.0 ng/mL (Normal) Comments: A serum folate concentration of less than 3.1 ng/mL isconsidered to represent clinical deficiency. :35 VITAMIN B-12 (CYANOCOBALAMIN) Comments: PATIENT NOT FASTINGPERFORMED BY: CB [facility] [address]izx[address]ublin [place] [id number] (62141) Vitamin B12 862 pg/mL (Normal) Range: 211-946 :35 TSH (11992) Comments: PATIENT NOT FASTINGPERFORMED BY: CB [facility] Jacuxz[address]ublin [place] [id number] TSH 0.695 {uIU/mL} (Normal) Range: 0.450-4.500 :35 SED RATE ERYTHROCYTE (65288) Comments: PATIENT NOT FASTINGPERFORMED BY: CB [facility] [address]mxx[address] [place] [id number] Sedimentation Rate-Westergren 3 mm/h (Normal) Range: 0-32 :35 RHEUMATOID FACTOR-QUANT (29495) Comments: PATIENT NOT FASTINGPERFORMED BY: CB [facility] [address]ylfb[address]ublin [place] [id number] RA Latex Turbid. <10.0 {IU/mL} (Normal) Range: 0.0-13.9 :35 METABOLIC PANEL, COMPREHENSIVE Comments: PATIENT NOT FASTINGPERFORMED BY: CB [facility] [address]fppq[address] [place] [id number] ([address]33) ALT (SGPT) 13 [iU]/L (Normal) Range: 0-32 [...] Glucose, Serum 95 mg/dL (Normal) Range: 65-99 65-Jvx-840778:35 C-REACTIVE PROTEIN (28936) Comments: PATIENT NOT FASTINGPERFORMED BY: [facility] InstituteVgqjak[address] [facility] [id number] C-Reactive Protein, Quant 5.1 mg/L (Abnormal) Range: 0.0-4.9 81-Tyg-286191:35 CBC (AUTO) (10434) Comments: PATIENT NOT FASTINGPERFORMED BY: [facility] InstituteGioets6970 [facility] [id number] Platelets 312 {x10E3/uL} (Normal) Range: 150-379 RDW 13.1 % (Normal) Range: 12.3-15.4 MCHC 34.3 g/dL (Normal) Range: 31.5-35.7 MCH 28.8 pg (Normal) Range: 26.6-33.0 MCV 84 fL (Normal) Range: 79-97 Hematocrit 43.5 % (Normal) Range: 34.0-46.6 Hemoglobin 14.9 g/dL (Normal) Range: 11.1-15.9 RBC 5.17 {x10E6/uL} (Normal) Range: 3.77-5.28 WBC 11.4 {x10E3/uL} (Abnormal) Range: 3.4-10.8 59-Xvr-436855:35 FILIBERTO (ANTINUCLEAR ANTIBODY) Comments: PATIENT NOT FASTINGPERFORMED BY: [facility] Xpdqpb0732 [facility] [id number] (79584) FILIBERTO Direct Negative (Normal) 1-Fep-869901:15 Basic Metabolic Profile (BMP) Comments: Test performed at:[facility] [address] [place] [address] GAP 6 (Normal) Range: 5-15 [...] <126 mg/dLsuggests IMPAIRED HOMEOSTASIS per A.D.A. criteria. 1-Tvv-784191:15 CBC W/Diff, Automated Comments: Test performed at:[facility] [address] [facility] [place] [address] Absolute Lymph 2.64 {X10_3/ul} (Normal) [...] 4.2-5.4 WBC 11.7 K/mm3 (Abnormal) Range: 4.4-11.0 9-Gpe-790329:15 Erythrocyte Sed Rate Comments: Test performed at:[facility] [address], [place] [address] SED RATE 5 mm/h (Normal) Range: 0-20 Plan of Care Name Dates Details Instructions SOB (shortness of breath) : Reviewed Lab Indication: SOB (shortness of breath) SOB (shortness of breath) : Reviewed Writer Letter Indication: SOB (shortness of breath) SOB (shortness of breath) : Reviewed Diagnostic Tests Indication: SOB (shortness of breath) Sinus pressure : Follow up if no [...] Cough: respiratory infection Indication: Bronchitis Planned Procedures SCREENING DIGITAL TOMOSYNTHESIS OF On: 20-May-2018 Intent BREAST (09425)By: Lizeth Whittington DO, DO, Kathleen CTA CHEST W/W/O CONTRAST (93927)By: On: 20-May-2018 Intent Lizeth Whittington DO, DO, Comments: compare to old cta for pulmonary embolismset up end of june Lizeth ELECTROCARDIOGRAM, COMPLETE (ECG) On: 12-May-2018 Intent (49562)By: Lizeth Whittington DO Comments: NSR poor R wave progression -- inc RBBB--possible lateral ischemia??? tropionin neg in ER Lizeth Whittington DO Echo CompleteBy: Lizeth Whittington DO On: 12-May-2018 Lizeth Hoyt DO CTA CHEST W/W/O CONTRAST (02088)By: On: 12-May-2018 Lizeth Hoyt DO, DO, Comments: r/o PE Lizeth HOLTER MONITORING WITH On: 12-May-2018 Intent INTERPRETATION (75615)By: Nelsy JORGE, Comments: 24hours Lizeth Ramirez DO MRI ANKLE AND FOOT (74527)By: Jared On: 23-Jan-2017 Intent COMIC ILLUSTRATOR, Dianna Benoit ATTENDED SLEEP STUDY (04100)By: On: 07-Nov-2016 Intent Lizeth Whittington DO, DO, Kathleen Ultrasound - Breast - LeftBy: On: 19-Oct-2014 Intent Justa Fulton MD MAMMOGRAM, SCREENING, BOTH BREAST On: 19-Oct-2014 Intent (95188)By: Justa Fulotn MD Eprescribed prescriptions (G8553)By: On: 28-Apr-2013 Intent 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 Instructions Name Dates Details Quit smoking : How to access health information online Indication: Quit smoking Quit smoking : How to access health information online - Detail Indication: Quit smoking Quit smoking : Patient Instructions Indication: Quit smoking Smoker : How to access health information [...] Instructions Indication: Bronchitis Encounters Office Visit On: 20-May-2018 10:57 Encounter Reason: Follow up ER - The patient feels well with minor complaints, has decreased energy level and is sleeping well., [ADDITIONAL REASON] Follow up tests - Date: (05/13/18 echo). Encounter Diagnosis: BMI 34.0-34.9,adult, Quit smoking, End: 20-May-2018 14:59 Tachycardia, SOB (shortness of breath), Multiple pulmonary emboli, Encounter for screening mammogram for breast cancer (Renamed from Encounter for screening mammogram for malignant neoplasm of breast), Family history of breast cancer, Family history of colon cancer, Family history of leukemia, Family history of lymphoma, Influenza vaccination declined (Renamed from Refused influenza vaccine) [facility] Office Visit On: 12-May-2018 12:15 Encounter Reason: [...] PAIN (786.59) [facility] CenterBrianna Bennett; saurav guarantor
--- OUTSIDE RECORDS SUMMARY | 2018-09-29 12:31 | XMS RPT_ITS | Continuity of Care Document ---
:1975 Author Organization [facility] Address [address] [place] [address] Phone Care Team Providers Name Role Phone Lizeth Whittington DO Unavailable Dr. Irvin Wang Unavailable Dr. Jesus Alberto Benito Unavailable JOANN Viera Unavailable Unavailable Chelita Steele Unavailable Unavailable Unavailable Unavailable Problems Name Dates Details Abnormal CXR (R93.89, 793.2) Status: Active Abnormal EKG (R94.31, 794.31) Comments: in ER read by Dr Hall Status: Active Abortions/Miscarriages Comments: 1. Status: Active BMI 33.0-33.9,adult (Z68.33, V85.33) Status: Active BMI 34.0-34.9,adult (Z68.34, V85.34) Status: Active Body aches (R52, 780.96) Status: Active CHEST PAIN (R07.9, 786.59) Status: Active Cough (R05, 786.2) Status: Active Dizzy (R42, 780.4) Status: Active [...] (shortness of breath) (R06.02, 786.05) Status: Active Sore throat (J02.9, 462) Status: Active Tachycardia (R00.0, 785.0) Status: Active Unspecified Diagnosis Status: Active Upper respiratory infection, viral (J06.9, 465.9) Status: Active Vaginal Delivery Comments: [id number] Status: Active Weight gain (R63.5, 783.1) Status: [...] 5d, 1/2 a d for 5 d Proventil HFA 108 (90 Base) MCG/ACT Inhalation Aerosol Solution 1 Aerosol Soln 1-2 puffs every 6 horus prn for 90 days Quantity: 1 {QS} Refills: 3 Ordered:31-May-2018 Chelita Viera LPN Start : 04-Aug-2017 End : 31-May-2018 Inactive TraMADol HCl 50 MG Oral Tablet 1 (one) Tablet q8hrs prn for 0 days Quantity: 10 {Tablet} Refills: 0 Ordered:04-Aug-2017 Chelita Viera LPN Start : 23-Jan-2017 End : 04-Aug-2017 Inactive Comments:per ER Zithromax Z-Bob 250 MG Oral Tablet 1 (one) Tablet TAD for 0 days Quantity: 1 {Package} Refills: 0 Ordered:20-May-2018 Chelita Veira LPN Start : 18-Aug-2017 End : 20-May-2018 [...] ears Completed Comments: 1980 Date Value Details 28-May-2018 SCREENING MAMM (CAD), BILAT Result: Comments: See Note; NOTES: [facility] Imaging Services [address] [place] [address] SCREENING MAMM (CAD), BILAT MR#: [id number] Acct: [id number] Name: BRIANNA BENNETT Rep #: [id number] : 1975 F 42 From: Andrés Li MD PCP: Lizeth Whittington DO Status: REG CLI Study: SCREENING MAMM (CAD), BILAT Date of Exam: 05/28/18 Exam# [id number] Ordering Dr: Lizeth Whittington DO MAMMOGRAPHY - BILATERAL SCREENING REASON FOR EXAM: Female, 42 years old. Routine annual screening examination. PERTINENT HISTORY: Aunts with breast cancer. TECHNIQUE: Digital bilateral breast t deysi (3D mammographic acquisition) in the CC and MLO projections. 2-D mediolateral oblique (MLO) and craniocaudad (CC) views of both breasts were obtained. CAD: Full Field Digital Mammography with Comput er Added Detection was performed. COMPARISON: Comparison is made with prior study dated October 23, 2014. FINDINGS: Breast Composition: The breasts are almost entirel y fatty. There are no dominant masses or suspicious calcifications. Stable small benign-appearing bilateral axillary lymph nodes. No other significant abnormalities are identified. There has been no s ignificant change since the prior study. BI/SCREENING MAMM (CAD), BILAT IMPRESSION: Stable bilateral screening mammogram. Yearly follow-up mammog yonny recommended. (A) ASSESSMENT CATEGORY: BIRADS Category 2: Benign. A letter regarding these results will be sent to the patient by the facility within 30 days. A pproximately 10% of breast cancers are not detected by mammography. A normal mammogram should not delay biopsy of a clinically suspicious abnormality. [id number] Electronically Signed: Andrés Li MD at 12:44 EST Tel [phone], Service support , CC: Lizeth Whittington DO Nut Process Helper: Signed 19-May-2018 12 Lead Electrocardiogram Result: Comments: See Note; NOTES: [facility] Cardiovascular Services [address] [place] [address] 12 Lead EKG 05/12/18 1910 MR#: [id number] Acct: [id number] Name: GURPREET PETITLEATHA García Re p #: [id number] : 1975 42 From: Javier Christianson MD [...] ECG Confirmed by JAVIER CHRISTIANSON MD ([id number]), city editor JAMAL ADAMS ([id number]) on 05/19/2018 2:25:35 PM Referred By: Lizeth Whittington Confirmed By:JAVIER CHRISTIANSON MD 05/19/18 1425 Date Javier Christianson MD CC: Cody Sheikh MD; Lizeth Whittington DO Signed 13-May-2018 Echo, Complete w/ Contrast Result: Comments: See Note; NOTES: [facility] Cardiovascular Services [address] [place] [address] Echo Complete W/ Contrast 05/13/18 1102 MR#: [id number] Acct: [id number] Name: BRIANNA SHAIKH Rep #: [id number] : 1975 42 From: Vinh Hall MD Attending Dr: Lizeth Whittington DO Status: REG CLI Ordering Dr: Lizeth Whittington DO Date: 05/13/18 Location: [facility] Sex: F C Admitted: Reason For Study: [...] Doppler Measurements AND Calculations MV E max aydee: 71.2 cm/sec Lat Peak E' Aydee: 12.4 cm/sec Med Peak E' Aydee: 7.3 cm/sec MV A max aydee: 71.2 cm/sec E/E' lat: 5.8 E/E' med: 9.7 MV E/A: 1.0 MV V2 max: 93.8 cm/sec MV P1/2t max aydee: 92.5 cm/sec Ao V2 max: 172.7 cm/sec [...] Lizeth Whittington Performed By: Greg Juarez RCS 05/13/181312 Date Vinh Hall MD CC: Lizeth Whittington DO Date Dictated: 05/13/18 1102 Date Transcribed: 05/13/18 1313 Nut Process Helper: Signed 13-May-2018 Discharge Instruction Result: Comments: See Note; NOTES: [facility] Medical Records Department [address] [place] [address] Discharge Instruction 05/12/182157 MR#: [id number] Acct: [id number] Name: Marii BENNETT ADILIALEATHA García Rep #: [id number] : 1975 42 From: Cody Sheikh MD [...] your Primary Care Provider. Call [facility] ([phone]) or report to the closest Emergency Room. Call 911 if n ecessary. 05/13/18 0022 <Electronically signed by Cody Sheikh MD> Date Cody Sheikh MD Cosigner Signature (If Indicated): Date ___ CC: Lizeth Whittington DO 13-May-2018 Emergency Department Summary Result: Comments: See Note; NOTES: [facility] Medical Records Department [address] [facility] [place] [address] Emergency Department Summary 05/12/185 MR#: [id number] Acct: [id number] Name: BRIANNA PETIT Rep #: [id number] : 1975 42 From: Cody Sheikh MD [...] has a history of MS, fibromyalgia, and Coy's disease. She is a smoker. Denies hormone [...] pulmonary emboli This note was generated with Nativis software. It may contain incorrect words, spelling, [...] blems, contact your Primary Care Provider. Call Car reviews Registry ([phone]) or report to the closest Emergency Room. Call 911 if necessary. 05/13/18 0022 <Electronically signed by Cody lopez MD> Date Cody Sheikh MD Cosigner Signature (If Indicated): Date CC: Lizeth Whittington DO 12-May-2018 Venous Duplex Imag/Mariusz Extrem Result: Comments: See Note; NOTES: [facility] Imaging Services [address] [place] [address] Venous Duplex Imag/Mariusz Extrem MR#: [id number] Acct: [id number] Name: BRIANNA BENNETT Rep # : [id number] : 1975 F 42 From: Nasir Coppola DO PCP: Lizeth Whittington DO Status: REG ER Study: Venous Duplex Imag/Mariusz Extrem Date of Exam: 05/12/18 Exam# [id number] Ordering Dr: Cody Sheikh MD STUD Y: [...] Nasir Coppola DO at 20:15 EDT Tel [phone], Service support , CC: Cody Sheikh MD; Lizeth Whittington DO Nut Process Helper: Signed 12-May-2018 CTA Chest W/WO Contrast Result: Comments: See Note; NOTES: [facility] Imaging Services [address] [place] [address] CTA Chest W/WO Contrast MR#: [id number] Acct: [id number] Name: BRIANNA BENNETT Raquel Rep #: [id number] : 1975 F 42 From: Andrés Li MD PCP: Lizeth Whittington DO Status: REG CLI Study: CTA Chest W/WO Contrast Date of Exam: 05/12/18 Exam# [id number] Ordering Dr: Lizeth Whittington DO UDY: CTA [...] Andrés Li MD at 15:13 EDT Tel [phone], Service support , CC: Lizeth Whittington DO Nut Process Helper: Signed 07-May-2018 12 Lead Electrocardiogram Result: Comments: See Note; NOTES: [facility] Cardiovascular Services [address] [place] [address] 12 Lead EKG 05/04/18 1326 MR#: [id number] Acct: [id number] Name: BRIANNA BENNETT Re p #: [id number] : 1975 42 From: Vinh Hall MD [...] Abnormal ECG Confirmed by RAFAEL JASON, VINH ([id number]), city editor JAMAL ADAMS ([id number]) on 05/07/2018 1:06:22 PM Referred By: PARVEZ/ALPHONSE Confirmed By: VINH HALL MD 05/07/18 1306 Date Vinh Hall MD CC: Cody Landa DO; Lizeth Whittington DO Signed 04-May-2018 Emergency Department Summary Result: Comments: See Note; NOTES: [facility] Medical Records Department [address] [place] [address] Emergency Department Summary 05/04/18 1421 MR#: [id number] Acct: [id number] Name: BRIANNA BENNETT Rep #: [id number] : 1975 42 From: Cody Landa DO [...] 2. Dyspnea This note was generated with [employer] dictation software. It may contain incorrect wor ds, spelling, and punctuation that were not noted in review of the chart prior to signing ED Disposition - Plan for ED Patient: Disposition: Home or Assisted Living Chief Complaint: Shortness of [place] th Instructions: Walking Pneumonia Prescriptions: Azithromycin [Zithromax Z-Bob] 250 mg PO UD #1 box Referrals: Lizeth Whittington DO [Primary Care Provider] - As soon as possible What to do if you hav e Problems For any increased pain, shortness of breath, bleeding, nausea or vomiting, chest pain, or any unexpected problems, contact your Primary Care Provider. Call Doctors Registry ([phone]) or report to the closest Emergency Room. Call 911 if necessary. 05/04/18 1546 <Electronically signed by Cody Landa DO> Date Cody fernandez DO Cosigner Signature (If Indicated): Date CC: Lizeth Whittington DO 04-May-2018 Chest PA and Lateral Result: Comments: See Note; NOTES: [facility] Imaging Services [address] [place] [address] Chest PA and Lateral MR#: [id number] Acct: [id number] Name: BRIANNA BENNETT Rep #: [id number] : 1975 F 42 From: Andrés Li MD PCP: Lizeth Whittington DO Status: REG ER Study: Chest PA and Lateral Date of Exam: 05/04/18 Exam# [id number] Ordering Dr: Cody Landa DO STUDY: X-RA [...] Andrés Li MD at 14:57 EDT Tel [phone], Service support , CC: Cody Landa DO; Lizeth Whittington DO Nut Process Helper: Signed 13-Aug-2017 12 Lead Electrocardiogram Result: Comments: See Note; NOTES: [facility] Cardiovascular Services [address] [place] [address] 12 Lead EKG 08/12/17 1147 MR#: [id number] Acct: [id number] Name: BRIANNA BENNETT Rep #: [id number] : 1975 41 From: Cody Barone MD Attending Dr: Irvin Wang DPM Status: PRE [facility] Ordering Dr: Irvin Wang DPM Date: 08/12/17 Location: [facility] Sex: F C Admitted: Test Reason : [...] Abnormal ECG Confirmed by CODY BARONE ([id number]), city editor JAMAL ADAMS (56) on 08/13/2017 11:38:07 AM Referred By : Irvin Wang Confirmed By:CODY BARONE 08/13/17 1138 Date Cody Barone MD CC: Irvin Wang DPM; Lizeth Whittington DO Signed 01-Jul-2017 Lower Ext Joint Only (Routine) Result: Comments: See Note; NOTES: [facility] Imaging Services [address] [place] [address] Lower Ext Joint Only (Routine) MR#: [id number] Acct: [id number] Name: BRIANNA BENNETT Rep #: [id number] : 1975 F 41 From: Leoncio Saini MD PCP: Lizeth Whittington DO Status: REG CLI Study: Lower Ext Joint Only (Routine) Date of Exam: 07/01/17 Exam# [id number] Ordering Dr: Paty Wang DPM STUDY: MRI [...] CC: Irvin Wang DPM; Lizeth Whittington DO Nut Process Helper: Signed 03-Apr-2017 Re-Evaluation - PT (1) Result: Comments: See Note; NOTES: [facility] Physical Therapy [facility] [address] [place] [address]. [address] [place], [place] [address] Fax REEVALUATION / MEDICARE RECERTI [facility] PHYSICAL THERAPY MR#: [id number] Acct: [id number] Name: BRIANNA BENNETT Rep #: [id number] : 1975 41 From: Magalys BOYDT Referring DrZaida: Dianna Coleman Status: REG RCR Insurance: [facility] Dianna Coleman, It has been my pleasure [...] do not hesitate to contact me at [phone] by phone or if you have questions or concerns regarding this new plan of care! Sincerely, Magalys Patel <Electronically signed by Magalys Patel DPT> 04/03/17916 CC: Dianna Coleman; Lizeth Whittington DO ELR Signed For Medicare only, by signing this I certify the plan of care. Physicians Signature Date 04-Mar-2017 Inital Evaluation (1) - PT Result: Comments: See Note; NOTES: [facility] Physical Therapy [facility] [address] [place] [address]. [address] [place] [address] Fax REHABILITATION SERVICES INITIAL EVALUATION MR#: [id number] Acct: [id number] Name: BRIANNA BENNETT Rep #: [id number] : 1975 41 From: Magalys Patel DPT Referring Dr.: Dianna Coleman Status: REG RCR Insurance: [employer] P atient's Visit Information BRIANNA BENNETT is a 41 [...] thinks possible stress fractures. 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 For Medicare and [facility] HMO plans, please review the plan of care and approve it. It will need to be FAXED BACK to us at [phone] for Medicare purposes. Please let me know if there are questions or concerns regardi ng this plan of care. Physician Signature: Date: <Electronically signed by Magalys Patel DPT> 03/04/17 1045 CC: Dianna alvarez; Lizeth Whittington DO ELR Signed For Medicare only, by signing this I certify the plan of care. Physicians Signature Date 07-Jan-2017 Emergency Department Summary Result: Comments: See Note; NOTES: [facility] Medical Records Department [address] [place] [address] Emergency Department Summary MR#: [id number] Acct: [id number] Name: VAZQUEZ BENNETT Rep #: [id number] : 1975 41 From: Demetrio Toscano MD PCP: Lizeth Whittington DO Status: [facility] ER DATE OF SERVICE: 01/04/2017 [...] Richard Lovett C: Lizeth Whittington DO T: [facility] JOB: [id number] 01/07/17 0806 <Electronically signed by Demetrio Toscano MD> Date Demetrio Toscano MD Cosigner Signature (If Indicated): Date CC: Lizeth Whittington DO Date Dictated: 01/05/17 0034 Date Transcribed: 01/05/1733 Nut Process Helper: Signed 23-Oct-2014 Bilat Diag Digital AND CAD Result: Comments: See Note; NOTES: [facility] Imaging Services [address] [place] [address] Breast Imaging Report MR#: [id number] Acct: [id number] Name: BRIANNA BENNETT Rep #: [id number] : 1975 F 39 From: Andrés Li MD PCP: Justa Fulton MD Status: REG CLI Study: Bilat Diag Digital AND CAD Date of Exam: 10/23/14 Exam# [id number] Ordering Dr: Justa Fulton MD MAMMOGRAPHY - [...] Andrés Li MD at 8:43 EDT Tel [phone], Service support [phone], Fax CC: Justa Fulton MD Nut Process Helper: Signed 23-Oct-2014 Breast Limited Unilateral Result: Comments: See Note; NOTES: [facility] Imaging Services [address] [place] [address] Ultrasound Report MR#: [id number] Acct: [id number] Name: BRIANNA BENNETT Rep #: [id number] : 1975 F 39 From: Andrés Li MD PCP: Justa Fulton MD Status: REG CLI Study: Breast Limited Unilateral Date of Exam: 10/23/14 Exam# [id number] Ordering Dr: Justa Fulton MD S TUDY: [...] Andrés Li MD at 9:50 EDT Tel [phone], Service support [phone], CC: Justa Fulton MD Nut Process Helper: Signed 23-Jul-2014 Emergency Department Summary Result: Comments: See Note; NOTES: [facility] Medical Records Department [address] [place] [address] Emergency Department Summary MR#: [id number] Acct: [id number] Name: BRIANNA BENNETT Rep #: [id number] : 1975 38 From: Josh Lagunas MD [...] Dr. Josh Lagunas MD T: [facility] JOB: [id number] 07/23/14 2241 <Electronically signed by Josh Lagunas MD> Date Josh Lagunas MD CC: Justa Fulton MD Date Dictated: 07/19/141610 Date Transcribed: 07/19/141610 Nut Process Helper: Signed 19-Jul-2014 Discharge Instruction Result: Comments: See Note; NOTES: [facility] Medical Records Department [address] [place] [address] Discharge Instruction 07/19/14 1612 MR#: [id number] Acct: [id number] Name: BRIANNA BENNETT Rep #: [id number] : 1975 38 From: Josh Lagunas MD [...] closest Emergency Room. Call 911 if necessary. 07/19/141611 <Electronically signed by Josh Lagunas MD> Date Josh Lagunas MD Cosigner Signature (If Indicated): Date CC: Justa Fulton MD 19-Jul-2014 Brain/Head without Contrast Result: Comments: See Note; NOTES: [facility] Imaging Services [address] [place] [address] CAT Scan Report MR#: [id number] Acct: [id number] Name: BRIANNA BENNETT Rep #: [id number] : 1975 F 38 From: Andrés Li MD PCP: Justa Fulton MD Status: REG ER Study: Brain/Head without Contrast Date of Exam: 07/19/14 Exam# [id number] Ordering Dr: Josh Lagunas MD STUDY: CT [...] Andrés Li MD at 15:47 EST Tel [phone], Service support [phone], CC: Justa Fulton MD; Josh Lagunas MD Nut Process Helper: Signed Family History Unknown Family Member Name [...] smoker Vital Signs Date Test Result Details 02-Tst-216714:32 Temperature 98.2 f Comments: Method: Temporal Pulse 87 /min Comments: Pattern: Regular Respiration Rate 18 /min Comments: Pattern: Unlabored O2 SAT 98 % Comments: Room air BP Systolic 128 mm[Hg] Comments: Patient Position: Sitting; Cuff Location: Left Arm; Cuff Size: Large BP Diastolic 78 mm[Hg] Comments: Patient Position: Sitting; Cuff Location: Left Arm; Cuff Size: Large Weight 214 lb Height 66.5 in Body Mass Index Calculated 34.02 kg/m2 Body Surface Area Calculated 2.07 m2 :05 Pulse 85 /min Comments: Pattern: Regular [...] kg/m2 Body Surface Area Calculated 2.06 m2 :18 Temperature 97.5 f Pulse 91 /min Comments: [...] 1.98 m2 Results Date Description Value Details :42 Rapid Strep Test, Office (01829) Rapid Strep Test, Office Negative (Normal) :42 Rapid Flu (05204 x 2) Influenza A Ag negative A and B (Normal) 03-Iom-081396:18 Basic Metabolic Profile (BMP) Comments: [facility] [address] [place], [place], [id number] GAP 9 (Normal) Range: 5-15 CO2 26.0 [...] A.D.A. criteria.Please note revised GLUCOSE reference range dswyrlsep17/02/2018. 86-Alk-650848:18 Troponin-I Comments: [facility] [address] [place], [address] TROPONIN-I < 0.015 ng/mL (Normal) Comments: TROPONIN-I EXPECTED VALUES <0.045 Negative 0.045 - 0.590 Consistent with Cardiac Damage > OR = 0.600 Critical Value Not every elevated troponin is indicative of PA. T hesevalues should be used with clinical judgement in examiningthe patient's clinical picture for diagnosis. To establisha diagnosis of PA versus myocardial injury, there must be ademonstrated rise and/ or fall in the troponin values, inaddition to ischemic symptoms, EKG changes, new regionalwall motion abnormality, and/or angiographical evidence. PLEASE NOTE: REFERENCE RANGES EDITED 11/23/1712-May-201826-Kup-843306:15 CBC W/Diff, Automated Comments: [facility] [address] [place], [address] Absolute Lymph 3.67 {X10_3/ul} (Normal) Range: 0.83-4.51 [...] 4.2-5.4 WBC 14.7 K/mm3 (Abnormal) Range: 4.4-11.0 51-Eib-944371:15 Partial Thromboplast Time Comments: [facility] [address] [place], [place], [id number] PTT 35.2 s (Normal) Range: 24.1-36.2 21-Vkg-550785:15 ,Serum,hCG Quali. Comments: [facility] [address] [place], [place], [address] HCGSQUAL NEGATIVE {Negative} (Normal) Range: 0-9 Nonpreg HCG Qual triggr 1 m[iU]/mL (Normal) 02-Ksc-234750:15 Prothrombin Time w/INR Comments: [facility] [address] [place], [place], [address] INR 0.9 (Normal) PROTIME 12.6 s (Normal) Range: 11.7-14.9 98-Fpb-226709:40 Basic Metabolic Profile (BMP) Comments: [facility] [address] [place], [place], [address] GAP 6 (Normal) Range: 5-15 CO2 29.0 [...] A.D.A. criteria.Please note revised GLUCOSE reference range dwtuaiwgk88/02/2018. 79-Hmn-622612:40 CBC W/Diff, Automated Comments: [facility] [address] [place], [place], [address] Absolute Lymph 3.04 {X10_3/ul} (Normal) Range: 0.83-4.51 [...] Range: 4.4-11.0 :40 D-Dimer Quantitative (DVT/PE) Comments: [facility] [address] [place], [place], [id number] D-DIMER QUANT 0.44 {FEU/ug/m} (Normal) Range: 0.27-0.49 Comments: NORMAL D-Dimer level (<0.50) indicates no DVT or PE. :40 Thyroid Stim Hormone (TSH) Comments: [address] [place], [place], [id number] TSH 1.29 {uIU/mL} (Normal) Range: 0.358-3.74 :40 Troponin-I Comments: [address] [place], [place], [id number] TROPONIN-I < 0.015 ng/mL (Normal) Comments: TROPONIN-I EXPECTED VALUES <0.045 Negative 0.045 - 0.590 Consistent with Cardiac Damage > OR = 0.600 Critical Value Not every elevated troponin is indicative of PA. T hesevalues should be used with clinical judgement in examiningthe patient's clinical picture for diagnosis. To establisha diagnosis of PA versus myocardial injury, there must be ademonstrated rise and/ or fall in the troponin values, inaddition to ischemic symptoms, EKG changes, new regionalwall motion abnormality, and/or angiographical evidence. PLEASE NOTE: REFERENCE RANGES EDITED 11/23/1711-Aug-201783-Xfp-779004:00 Rapid Flu (70248 x 2) Influenza A Ag Negative (Normal) 36-Lcu-187941:02 METABOLIC PANEL, COMPREHENSIVE Comments: PATIENT NOT FASTINGPERFORMED BY: Targazyme6370 [address] [facility] [id number] (29449) ALT (SGPT) 22 [iU]/L (Normal) Range: 0-32 [...] Glucose, Serum 81 mg/dL (Normal) Range: 65-99 97-Qwj-621920:02 CBC W/AUTO DIFF WBC (93180) Comments: PATIENT NOT FASTINGPERFORMED BY: LabCoMobileVedaLfxtmg2960 [facility] [id number] Immature Grans (Abs) 0.0 {x10E3/uL} (Normal) Range: [...] 3.77-5.28 WBC 10.9 {x10E3/uL} (Abnormal) Range: 3.4-10.8 51-Vio-783946:02 PTT (Activated Partial Comments: PATIENT NOT FASTINGPERFORMED BY: [facility]6370 [facility] [id number] Thromboplastin Time) (60073) aPTT 30 {sec} (Normal) Range: 24-33 Comments: This test has not been validated for monitoring unfractionated heparintherapy. aPTT-based therapeutic ranges for unfractionated heparintherapy have not been established. For general guidelines onHeparin monitoring, refer to the [facility] Directory of Services. 75-Zqu-171375:02 PT (Prothrobim Time) (73827) Comments: PATIENT NOT FASTINGPERFORMED BY: [facility]0057 [facility] [place] [id number] Prothrombin Time 9.8 {sec} (Normal) Range: 9.1-12.0 INR 0.9 (Normal) Range: 0.8-1.2 Comments: Reference interval is for non-anticoagulated patients. . Suggested INR therapeutic range for Vitamin K anta gonist therapy: Standard Dose (moderate intensity therapeutic range): 2.0 - 3.0 Higher intensity therapeutic range 2.5 - 3.5 :35 CALCIFIDIOL (98547) VIT D 25 Comments: PATIENT NOT FASTINGPERFORMED BY: [facility] Johrog4106 [facility] [id number] Vitamin D, 25-Hydroxy 30.7 ng/mL (Normal) Range: 30.0-100.0 Comments: Vitamin D deficiency has been defined by the [place] of[place]icine and an Endocrine Society practice guideline as alevel of serum 25-OH vitamin D less than 20 ng/mL (1,2).The Endocrine Society went on to further define vitamin Dinsufficiency as a level between 21 and 29 ng/mL (2).1. IOM ([place] [employer]). 2010. Dietary reference intakes for calcium and D. [place]: The National Academies Press.2. Chasity MF, J[place], Sandra PADILLA, et al. Evaluation, treatment, and prevention of vitamin D deficiency: an Endocrine Society clinical practice guideline. JCEM. 2010; 96(7):1911-30. 39-Bib-567745:35 Folate (78649) Comments: PATIENT NOT FASTINGPERFORMED BY: [facility] Pyzctp8887 [facility] [id number] Folate (Folic Acid), Serum >20.0 ng/mL (Normal) Comments: A serum folate concentration of less than 3.1 ng/mL isconsidered to represent clinical deficiency. :35 VITAMIN B-12 (CYANOCOBALAMIN) Comments: PATIENT NOT FASTINGPERFORMED BY: [facility] [id number] [facility] [id number] ([id number]) Vitamin B12 862 pg/mL (Normal) Range: 211-946 90-Nic-790988:35 TSH (59715) Comments: PATIENT NOT FASTINGPERFORMED BY: [facility] Squdxn8114 [facility] [id number] TSH 0.695 {uIU/mL} (Normal) Range: 0.450-4.500 03-Wxp-281621:35 SED RATE ERYTHROCYTE ([id number]) Comments: PATIENT NOT FASTINGPERFORMED BY: [facility]6370 [facility] [id number] Sedimentation Rate-Westergren 3 mm/h (Normal) Range: 0-32 :35 RHEUMATOID FACTOR-QUANT (02073) Comments: PATIENT NOT FASTINGPERFORMED BY: [facility] Tmpoya7919 [facility] [id number] RA Latex Turbid. <10.0 {IU/mL} (Normal) Range: 0.0-13.9 42-Znr-394703:35 METABOLIC PANEL, COMPREHENSIVE Comments: PATIENT NOT FASTINGPERFORMED BY: [facility] HamiltonNbuxxh4574 [facility] [id number] ([id number]) ALT (SGPT) 13 [iU]/L (Normal) Range: 0-32 [...] Glucose, Serum 95 mg/dL (Normal) Range: 65-99 00-Cyu-850088:35 C-REACTIVE PROTEIN (44573) Comments: PATIENT NOT FASTINGPERFORMED BY: [facility]TaskMem[facility] CenterIybygh9789 [facility] [id number] C-Reactive Protein, Quant 5.1 mg/L (Abnormal) Range: 0.0-4.9 95-Fqx-948208:35 CBC (AUTO) (97257) Comments: PATIENT NOT FASTINGPERFORMED BY: [facility]6370 [facility] [id number] Platelets 312 {x10E3/uL} (Normal) Range: 150-379 RDW 13.1 % (Normal) Range: 12.3-15.4 MCHC 34.3 g/dL (Normal) Range: 31.5-35.7 MCH 28.8 pg (Normal) Range: 26.6-33.0 MCV 84 fL (Normal) Range: 79-97 Hematocrit 43.5 % (Normal) Range: 34.0-46.6 Hemoglobin 14.9 g/dL (Normal) Range: 11.1-15.9 RBC 5.17 {x10E6/uL} (Normal) Range: 3.77-5.28 WBC 11.4 {x10E3/uL} (Abnormal) Range: 3.4-10.8 43-Cxx-563763:35 FILIBERTO (ANTINUCLEAR ANTIBODY) Comments: PATIENT NOT FASTINGPERFORMED BY: [facility]6370 [facility] [id number] ([id number]) FILIBERTO Direct Negative (Normal) 2-Egm-980941:15 Basic Metabolic Profile (BMP) Comments: Test performed at:[facility] [address] [place], [place] [address] GAP 6 (Normal) Range: 5-15 CO2 29.0 [...] <126 mg/dLsuggests IMPAIRED HOMEOSTASIS per A.D.A. criteria. 5-Fsv-326971:15 CBC W/Diff, Automated Comments: Test performed at:[facility] [address] [place] [address] Absolute Lymph 2.64 {X10_3/ul} (Normal) Range: 0.83-4.51 [...] 4.2-5.4 WBC 11.7 K/mm3 (Abnormal) Range: 4.4-11.0 4-Vrr-209413:15 Erythrocyte Sed Rate Comments: Test performed at:[facility] [address] [place] [address] SED RATE 5 mm/h (Normal) Range: 0-20 Plan of Care Name Dates Details Instructions Upper respiratory infection, viral : Cough: upper respiratory infection Indication: Upper respiratory infection, viral Upper respiratory infection, viral : Follow up if no improvement or if symptoms worsen Indication: Upper respiratory infection, viral SOB (shortness of breath) : Reviewed Lab Indication: SOB (shortness of breath) SOB (shortness of breath) : Reviewed Journalist Letter Indication: SOB (shortness of breath) SOB [...] : Cough: respiratory infection Indication: Bronchitis Planned Observations THROAT CULTURE ([id number])Indication: Sore throat On: 84-Yrk-258661:42 Request Planned Procedures CHEST XRAY, PA & LATERAL ([id number])By: On: 31-May-2018 Intent Chelita Steele SCREENING DIGITAL TOMOSYNTHESIS OF On: 20-May-2018 Intent BREAST ([id number])By: Lizeth Whittington DO, DO, Kathleen CTA CHEST W/W/O CONTRAST ([id number])By: On: 20-May-2018 Intent Lizeth Whittington DO, DO, Comments: compare to old cta for pulmonary embolismset up end of june Lizeth ELECTROCARDIOGRAM, COMPLETE (ECG) On: 12-May-2018 Intent ([id number])By: Lizeth Whittington DO Comments: NSR poor R wave progression -- inc RBBB--possible lateral ischemia??? tropionin neg in ER Lizeth Whittington DO Echo CompleteBy: Lizeth Whittington DO On: 12-May-2018 Lizeth Hoyt DO CTA CHEST W/W/O CONTRAST ([id number])By: On: 12-May-2018 Lizeth Hoyt DO, DO, Comments: r/o PE Lizeth HOLTER MONITORING WITH On: 12-May-2018 Intent INTERPRETATION ([id number])By: Nelsy JORGE, Comments: 24hours Lizeth Ramirez DO MRI ANKLE AND FOOT ([id number])By: Jared On: 23-Jan-2017 Intent MARCOS Dianna Benoit ATTENDED SLEEP STUDY ([id number])By: On: 07-Nov-2016 Intent Lizeth Whittington DO, DO, Kathleen Ultrasound - Breast - LeftBy: On: 19-Oct-2014 Intent Justa Fulton MD MAMMOGRAM, SCREENING, BOTH BREAST On: 19-Oct-2014 Intent ([id number])By: Justa Fulton MD Eprescribed prescriptions ([id number])By: On: 28-Apr-2013 Intent 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, 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 Aerosol Treatment (03313)By: Donaldo On: 14-Apr-2013 Intent Justa JASON Pulse Oximetry ([id number])By: Romero On: 14-Apr-2013 Intent GUILHERME EKG (09009)By: Lizeth Whittington DO On: 19-Oct-2012 Intent Lizeth Whittington DO Comments: [facility] Instructions Name Dates Details Quit smoking : How to access health information online Indication: Quit smoking Quit smoking : How to access health information online - Detail Indication: Quit smoking Body aches : Patient Instructions Indication: Body aches Quit smoking : How to access health [...] Instructions Indication: Bronchitis Encounters Office Visit On: 31-May-2018 15:28 Encounter Reason: Upper Respiratory Infection (URI) - No changes in management were made at the last visit. Symptoms include nasal congestion, runny nose, sore throat, hoarseness, productive cough, chills and general mal End: 31-May-2018 16:00 aise, while symptoms do not include fever. Onset was sudden 12 hour(s) ago. The symptoms occur constantly. The patient describes this as moderate in severity and worsening. Associated symptoms include s hortness of breath and colored sputum, while associated symptoms do not include ear pain, ear plugging or headache. The patient is not currently being treated for this problem. Note for Upper respirato ry infection: Symptoms started this morning with body aches, sore throat, chills, cough-light green with brown flecks, nasal drainage-clear, SOB, back pain. No fever, wheezing. Hasn't taken anything OTC today.Encounter Diagnosis: BMI 34.0-34.9,adult , Quit smoking, Body aches, Cough, Sore throat, Upper respiratory infection, viral [facility] Office Visit On: 20-May-2018 10:57 Encounter Reason: [...] CHEST PAIN (786.59) [facility]ayers [facility] HospitalBrianna Bennett; saurav guarantor
--- OUTSIDE RECORDS SUMMARY | 2018-09-29 12:31 | XMS RPT_ITS | Continuity of Care Document ---
:1975 Author Organization [facility] Address [address] [facility] [address] [place] [address] Phone Care Team Providers Name Role Phone [...] Unspecified Diagnosis Status: Active Vaginal Delivery Comments: [id number] Status: Active Weight gain (R63.5, 783.1) Status: [...] Lead Electrocardiogram Result: Comments: See Note; NOTES: [facility] Cardiovascular Services [address] [place] [address] 12 Lead EKG 05/12/18 1910 MR#: [id number] Acct: [id number] Name: BRIANNA BENNETT p #: [id number] : 1975 42 From: Javier Christianson MD [...] ECG Confirmed by JAVIER CHRISTIANSON MD ([id number]), medical editor JAMAL ADAMS ([id number]) on 05/19/2018 2:25:35 PM Referred By: Lizeth Whittington Confirmed By:JAVIER CHRISTIANSON MD 05/19/18 1425 Date Javier Christianson MD CC: Cody Sheikh MD; Lizeth Whittington DO Signed 13-May-2018 Echo, Complete w/ Contrast Result: Comments: See Note; NOTES: [facility] Cardiovascular Services [address] [place] [address] Echo Complete W/ Contrast 05/13/18 1102 MR#: [id number] Acct: [id number] Name: BRIANNA SHAIKH Rep #: [id number] : 1975 42 From: Vinh Hall MD [...] Dictated: 05/13/18 1102 Date Transcribed: 05/13/18 1313 Automation Consultant: Signed 13-May-2018 Discharge Instruction Result: Comments: See Note; NOTES: [facility] Medical Records Department [address] [place] [address] Discharge Instruction 05/12/18 2158 MR#: [id number] Acct: [id number] Name: Marii BENNETT Rep #: [id number] : 1975 42 From: Cody Sheikh MD [...] your Primary Care Provider. Call [facility] ([phone]) or report to the closest Emergency Room. Call 911 if n harvey. 05/13/18 0022 <Electronically signed by Cody Sheikh MD> Date Cody Sheikh MD Cosigner Signature (If Indicated): Date ___ CC: Lizeth Whittington DO 13-May-2018 Emergency Department Summary Result: Comments: See Note; NOTES: [facility] Medical Records Department [address] [place] [address] Emergency Department Summary 05/12/18 2155 MR#: [id number] Acct: [id number] Name: BRIANNA BENNETT Rep #: [id number] : 1975 42 From: Cody Sheikh MD [...] has a history of MS, fibromyalgia, and Cottonwood's disease. She is a smoker. Denies hormone [...] pulmonary emboli This note was generated with [employer] software. It may contain incorrect words, spelling, [...] blems, contact your Primary Care Provider. Call [facility] ([phone]) or report to the closest Emergency Room. Call 911 if necessary. 05/13/18 0022 <Electronically signed by Cody lopez MD> Date Cody Sheikh MD Cosigner Signature (If Indicated): Date CC: Lizeth Whittington DO 12-May-2018 Venous Duplex Imag/Mariusz Extrem Result: Comments: See Note; NOTES: [facility] Imaging Services [address] [place] [address] Venous Duplex Imag/Mariusz Extrem MR#: [id number] Acct: [id number] Name: BRIANNA BENNETT Rep # : [id number] : 1975 F 42 From: Nasir Coppola DO PCP: Lizeth Whittington DO Status: [facility] Study: Venous Duplex Imag/Mariusz Extrem Date of Exam: 05/12/18 Exam# [id number] Ordering Dr: Cody Sheikh MD STUD Y: [...] Nasir Coppola DO at 20:15 EDT Tel [phone], Service support , CC: Cody Sheikh MD; Lizeth Whittington DO Automation Consultant: Signed 12-May-2018 CTA Chest W/WO Contrast Result: Comments: See Note; NOTES: [facility] Imaging Services [address] [place] [address] CTA Chest W/WO Contrast MR#: [id number] Acct: [id number] Name: BRIANNA BENNETT Rep #: [id number] : 1975 F 42 From: Andrés Li MD PCP: Lizeth Whittington DO Status: REG CLI Study: CTA Chest W/WO Contrast Date of Exam: 05/12/18 Exam# [id number] Ordering Dr: Lizeth Whittington DO UDY: CTA [...] Andrés Li MD at 15:13 EDT Tel [phone], Service support , CC: Lizeth Whittington DO Automation Consultant: Signed 07-May-2018 12 Lead Electrocardiogram Result: Comments: See Note; NOTES: [facility] Cardiovascular Services [address] [place] [address] 12 Lead EKG 05/04/18 1326 MR#: [id number] Acct: [id number] Name: BRIANNA BENNETT Re p #: [id number] : 1975 42 From: Vinh Hall MD Attending Dr: Status: DEP ER Ordering Dr: Cody Lanad DO Date: 05/04/18 Location: ED Sex: F [...] Abnormal ECG Confirmed by RAFAEL JASON, VINH ([id number]), medical editor JAMAL ADAMS ([id number]) on 05/07/2018 1:06:22 PM Referred By: PARVEZ/ALPHONSE Confirmed By: VINH HALL MD 05/07/18 1306 Date Vinh Hall MD CC: Cody Landa DO; Lizeth Whittington DO Signed 04-May-2018 Emergency Department Summary Result: Comments: See Note; NOTES: [facility] Medical Records Department [address] [place] [address] Emergency Department Summary 05/04/18 1421 MR#: [id number] Acct: [id number] Name: BRIANNA BENNETT Rep #: [id number] : 1975 42 From: Cody Landa DO [...] 2. Dyspnea This note was generated with [employer] dictation software. It may contain incorrect wor ds, spelling, and punctuation that were not noted in review of the chart prior to signing ED Disposition - Plan for ED Patient: Disposition: Home or Assisted Living Chief Complaint: Shortness of [place] th Instructions: Walking Pneumonia Prescriptions: Azithromycin [Zithromax Z-Bob] 250 mg PO UD #1 box Referrals: Lizeth Whittington DO [Primary Care Provider] - As soon as possible What to do if you hav e Problems For any increased pain, shortness of breath, bleeding, nausea or vomiting, chest pain, or any unexpected problems, contact your Primary Care Provider. Call [facility] ([phone]) or report to the closest Emergency Room. Call 911 if necessary. 05/04/18 1544 <Electronically signed by Cody Landa DO> Date Cody fernandez DO Cosigner Signature (If Indicated): Date CC: Lizeth Whittington DO 04-May-2018 Chest PA and Lateral Result: Comments: See Note; NOTES: [facility] Imaging Services [address] [place] [address] Chest PA and Lateral MR#: [id number] Acct: [id number] Name: BRIANNA BENNETT Rep #: [id number] : 1975 F 42 From: Andrés Li MD PCP: Lzieth Whittington DO Status: [facility] ER Study: Chest PA and Lateral Date of Exam: 05/04/18 Exam# [id number] Ordering Dr: Cody Landa DO STUDY: X-RA [...] Andrés Li MD at 14:57 EDT Tel [phone], Service support , CC: Cody Landa DO; Lizeth Whittington DO Automation Consultant: Signed 13-Aug-2017 12 Lead Electrocardiogram Result: Comments: See Note; NOTES: [facility] Cardiovascular Services [address] [place] [address] 12 Lead EKG 08/12/17 1147 MR#: [id number] Acct: [id number] Name: BRIANNA BENNETT Rep #: [id number] : 1975 41 From: Cody Barone MD Attending Dr: Irvin Wang DPM Status: PRE TXC Ordering Dr: Irvin Wang DPM Date: 08/12/17 Location: [facility] Sex: F C Admitted: Test Reason : [...] Abnormal ECG Confirmed by CODY BARONE ([id number]), medical editor JAMAL ADAMS (56) on 08/13/2017 11:38:07 AM Referred By : Irvin Wang Confirmed By:CODY BARONE 08/13/17 1138 Date Cody Barone MD CC: Irvin Wang DPM; Lizeth Whittington DO Signed 01-Jul-2017 Lower Ext Joint Only (Routine) Result: Comments: See Note; NOTES: [facility] Imaging Services [address] [place] [address] Lower Ext Joint Only (Routine) MR#: [id number] Acct: [id number] Name: BRIANNA BENNETT Rep #: [id number] : 1975 F 41 From: Leoncio Saini MD PCP: Lizeth Whittington DO Status: REG CLI Study: Lower Ext Joint Only (Routine) Date of Exam: 07/01/17 Exam# [id number] Ordering Dr: Paty Wang DPM STUDY: MRI [...] CC: Irvin Wang DPM; Lizeth Whittington DO Automation Consultant: Signed 03-Apr-2017 Re-Evaluation - PT (1) Result: Comments: See Note; NOTES: [facility] Physical Therapy [facility] [address] [place] [address]. [address] [place], [place] [address] Fax REEVALUATION / MEDICARE RECERTI FICATION PHYSICAL THERAPY MR#: [id number] Acct: [id number] Name: BRIANNA BENNETT Rep #: [id number] : 1975 41 From: Magalys Patel DPT Referring DrZaida: Dianna Coleman Status: REG RCR Insurance: MED [facility] TPA Dianna Coleman, It has been [...] do not hesitate to contact me at [phone] by phone or if you have questions or concerns regarding this new plan of care! Sincerely, Mgaalys Patel <Electronically signed by Magalys Patel DPT> 04/03/17 0917 CC: Dianna Coleman; Lizeth Whittington DO ELR Signed For Medicare only, by signing this I certify the plan of care. Physicians Signature Date 04-Mar-2017 Inital Evaluation (1) - PT Result: Comments: See Note; NOTES: [facility] Physical Therapy [facility] [address] [place], [place] [address] Fax REHABILITATION SERVICES INITIAL EVALUATION MR#: [id number] Acct: [id number] Name: BRIANNA BENNETT Rep #: [id number] : 1975 41 From: Magalys Patel DPT Referring Dr.: Dianna Coleman Status: REG RCR Insurance: MED [facility] Information BRIANNA BENNETT is a 41 [...] possible stress fractures. 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 For Medicare and [facility] HMO plans, please review the plan of care and approve it. It will need to be FAXED BACK to us at [phone] for Medicare purposes. Please let me know if there are questions or concerns regardi ng this plan of care. Physician Signature: Date: <Electronically signed by Magalys Patel DPT> 03/04/17 1045 CC: Dianna alvarez; Lizeth Whittington DO ELR Signed For Medicare only, by signing this I certify the plan of care. Physicians Signature Date 07-Jan-2017 Emergency Department Summary Result: Comments: See Note; NOTES: [facility] Medical Records Department [address] [place] [address] Emergency Department Summary MR#: [id number] Acct: [id number] Name: VAZQUEZ BENNETT Rep #: [id number] : 1975 41 From: Demetrio Toscano MD [...] C: Lizeth Whittington DO T: NTS JOB: [id number] 01/07/17 0806 <Electronically signed by Demetrio Toscano MD> Date Demetrio Toscano MD Cosigner Signature (If Indicated): Date CC: Lizeth Whittington DO Date Dictated: 01/05/1733 Date Transcribed: 01/05/1733 Automation Consultant: Signed 23-Oct-2014 Bilat Diag Digital AND CAD Result: Comments: See Note; NOTES: [facility] Imaging Services [address] [place] [address] Breast Imaging Report MR#: [id number] Acct: [id number] Name: BRIANNA BENNETT Rep #: [id number] : 1975 F 39 From: Andrés Li MD PCP: Justa Fulton MD Status: [facility] Study: Bilat Diag Digital AND CAD Date of Exam: 10/23/14 Exam# [id number] Ordering Dr: Justa Fulton MD MAMMOGRAPHY - [...] Andrés Li MD at 8:43 EDT Tel [phone], Service support [phone], Fax CC: Justa Fulton MD Automation Consultant: Signed 23-Oct-2014 Breast Limited Unilateral Result: Comments: See Note; NOTES: [facility] Imaging Services [address] [place] [address] Ultrasound Report MR#: [id number] Acct: [id number] Name: BRIANNA BENNETT Rep #: [id number] : 1975 F 39 From: Andrés Li MD PCP: Justa Fulton MD Status: REG CLI Study: Breast Limited Unilateral Date of Exam: 10/23/14 Exam# [id number] Ordering Dr: Justa Fulton MD S TUDY: [...] Andrés Li MD at 9:50 EDT Tel [phone], Service support [phone], CC: Justa Fulton MD Automation Consultant: Signed 23-Jul-2014 Emergency Department Summary Result: Comments: See Note; NOTES: [facility] Medical Records Department [address] [place] [address] Emergency Department Summary MR#: [id number] Acct: [id number] Name: BRIANNA BENNETT Rep #: [id number] : 1975 38 From: Josh Lagunas MD PCP: Justa Fulton MD Status: [facility] ER DATE OF SERVICE: [...] Dr. Josh Lagunas MD T: NTS JOB: [id number] 07/23/14 2241 <Electronically signed by Josh Lagunas MD> Date Josh Lagunas MD CC: Justa Fulton MD Date Dictated: 07/19/141610 Date Transcribed: 07/19/141610 Automation Consultant: Signed 19-Jul-2014 Discharge Instruction Result: Comments: See Note; NOTES: [facility] Medical Records Department [address] [place] [address] Discharge Instruction 07/19/141611 MR#: [id number] Acct: [id number] Name: BRIANNA BENNETT Rep #: [id number] : 1975 38 From: Josh Lagunas MD PCP: Justa Fulton MD Status: REG ER ED Disposition - Plan for ED Patient: Chief Complaint: Headache Instructions: ED Headache, Unspecified What to do if you have Problems For any increased pain, shortness of breath, bleeding, nausea or vomiting, chest pain, or any unexpected problems, contact your doctor. Call [facility] ) or report to the closest Emergency Room. Call 911 if necessary. 07/19/14 1612 <Electronically signed by Josh Lagunas MD> Date Josh Lagunas MD Cosigner Signature (If Indicated): Date CC: Justa Fulton MD 19-Jul-2014 Brain/Head without Contrast Result: Comments: See Note; NOTES: [facility] Imaging Services [address] [place] [address] CAT Scan Report MR#: [id number] Acct: [id number] Name: BRIANNA BENNETT Rep #: [id number] : 1975 F 38 From: Andrés Li MD PCP: Justa Fulton MD Status: REG ER Study: Brain/Head without Contrast Date of Exam: 07/19/14 Exam# [id number] Ordering Dr: Josh Lagunas MD STUDY: CT [...] Normal visualized paranasal sinuses. IMPRESSION: No ac [place] abnormality is seen. Electronically Signed: Andrés Li MD at 15:47 EST Tel [phone], Service support [phone], CC: Justa Fulton MD; Josh Lagunas MD Automation Consultant: Signed Family History Unknown Family Member Name [...] kg/m2 Body Surface Area Calculated 2.06 m2 41-Fbp-070409:18 Temperature 97.5 f Pulse 91 /min Comments: [...] 1.98 m2 Results Date Description Value Details 80-Hsy-394651:18 Basic Metabolic Profile (BMP) Comments: [facility] [address] [place], [place], [address] GAP 9 (Normal) Range: 5-15 CO2 26.0 [...] A.D.A. criteria.Please note revised GLUCOSE reference range /02/2018. 46-Qan-923529:18 Troponin-I Comments: [facility] [address] [place], [address] TROPONIN-I < 0.015 ng/mL (Normal) Comments: TROPONIN-I EXPECTED VALUES <0.045 Negative 0.045 - 0.590 Consistent with Cardiac Damage > OR = 0.600 Critical Value Not every elevated troponin is indicative of VT. T hesevalues should be used with clinical judgement in examiningthe patient's clinical picture for diagnosis. To establisha diagnosis of VT versus myocardial injury, there must be ademonstrated rise and/ or fall in the troponin values, inaddition to ischemic symptoms, EKG changes, new regionalwall motion abnormality, and/or angiographical evidence. PLEASE NOTE: REFERENCE RANGES EDITED 17:15 CBC W/Diff, Automated Comments: [facility] [address] [place], [place], [address] Absolute Lymph 3.67 {X10_3/ul} (Normal) Range: 0.83-4.51 [...] Range: 4.4-11.0 :15 Partial Thromboplast Time Comments: [facility] [address] [place], [place], [address] PTT 35.2 s (Normal) Range: 24.1-36.2 74-Tws-338253:15 ,Serum,hCG Quali. Comments: [facility] [address] [place], [address] HCGSQUAL NEGATIVE {Negative} (Normal) Range: 0-9 Nonpreg HCG Qual triggr 1 m[iU]/mL (Normal) 48-Gqr-811289:15 Prothrombin Time w/INR Comments: [facility] [address] [place], [address] INR 0.9 (Normal) PROTIME 12.6 s (Normal) Range: 11.7-14.9 15-Iqq-192647:40 Basic Metabolic Profile (BMP) Comments: [facility] [address] [place], [address] GAP 6 (Normal) Range: 5-15 CO2 29.0 [...] A.D.A. criteria.Please note revised GLUCOSE reference range ylngzivwf48/02/2018. 50-Uuv-524378:40 CBC W/Diff, Automated Comments: [facility] [address] [place], [address] Absolute Lymph 3.04 {X10_3/ul} (Normal) Range: 0.83-4.51 [...] 4.2-5.4 WBC 11.6 K/mm3 (Abnormal) Range: 4.4-11.0 44-Evr-103215:40 D-Dimer Quantitative (DVT/PE) Comments: [facility] [address] [place], [place], [address] D-DIMER QUANT 0.44 {FEU/ug/m} (Normal) Range: 0.27-0.49 Comments: NORMAL D-Dimer level (<0.50) indicates no DVT or PE. 14-Keb-021852:40 Thyroid Stim Hormone (TSH) Comments: [facility] [address] [place], [address] TSH 1.29 {uIU/mL} (Normal) Range: 0.358-3.74 38-Kll-553955:40 Troponin-I Comments: [facility] [address] [place], [place], [address] TROPONIN-I < 0.015 ng/mL (Normal) Comments: TROPONIN-I EXPECTED VALUES <0.045 Negative 0.045 - 0.590 Consistent with Cardiac Damage > OR = 0.600 Critical Value Not every elevated troponin is indicative of VT. T hesevalues should be used with clinical judgement in examiningthe patient's clinical picture for diagnosis. To establisha diagnosis of VT versus myocardial injury, there must be ademonstrated rise and/ or fall in the troponin values, inaddition to ischemic symptoms, EKG changes, new regionalwall motion abnormality, and/or angiographical evidence. PLEASE NOTE: REFERENCE RANGES EDITED 11/23/1711-Aug-201723-Hpj-415193:00 Rapid Flu (95837 x 2) Influenza A Ag Negative (Normal) 51-Lke-633444:02 METABOLIC PANEL, COMPREHENSIVE Comments: PATIENT NOT FASTINGPERFORMED BY: [facility] Cgdpxq4966 [facility] [id number] (80740) ALT (SGPT) 22 [iU]/L (Normal) Range: 0-32 [...] Glucose, Serum 81 mg/dL (Normal) Range: 65-99 73-Jtr-653039:02 CBC W/AUTO DIFF WBC (19260) Comments: PATIENT NOT FASTINGPERFORMED BY: [facility] F[address]awd4490 [facility] [id number] Immature Grans (Abs) 0.0 {x10E3/uL} (Normal) Range: [...] 3.77-5.28 WBC 10.9 {x10E3/uL} (Abnormal) Range: 3.4-10.8 13-Aoc-778290:02 PTT (Activated Partial Comments: PATIENT NOT FASTINGPERFORMED BY: [facility]6370 [facility] [id number] Thromboplastin Time) (34645) aPTT 30 {sec} (Normal) Range: 24-33 Comments: This test has not been validated for monitoring unfractionated heparintherapy. aPTT-based therapeutic ranges for unfractionated heparintherapy have not been established. For general guidelines onHeparin monitoring, refer to the [facility] Directory of Services. 12-Odm-113273:02 PT (Prothrobim Time) (67666) Comments: PATIENT NOT FASTINGPERFORMED BY: [facility]6[address] [facility] [id number] Prothrombin Time 9.8 {sec} (Normal) Range: 9.1-12.0 INR 0.9 (Normal) Range: 0.8-1.2 Comments: Reference interval is for non-anticoagulated patients. . Suggested INR therapeutic range for Vitamin K anta gonist therapy: Standard Dose (moderate intensity therapeutic range): 2.0 - 3.0 Higher intensity therapeutic range 2.5 - 3.5 74-Iee-554091:35 CALCIFIDIOL (50630) VIT D 25 Comments: PATIENT NOT FASTINGPERFORMED BY: [facility]6[address] [facility] [id number] Vitamin D, 25-Hydroxy 30.7 ng/mL (Normal) Range: 30.0-100.0 Comments: Vitamin D deficiency has been defined by the [place] ofMedicine and an Endocrine Society practice guideline as alevel of serum 25-OH vitamin D less than 20 ng/mL (1,2).The Endocrine Society went on to further define vitamin Dinsufficiency as a level between 21 and 29 ng/mL (2).1. IOM ([place] of Medicine). 2010. Dietary reference intakes for calcium and D. Rodriges [place]: The National Academies Press.2. Chasity MF, Jerson NC, Sandra PADILLA, et al. Evaluation, treatment, and prevention of vitamin D deficiency: an Endocrine Society clinical practice guideline. JCEM. 2010; 96(7):1911-30. :35 Folate (31601) Comments: PATIENT NOT FASTINGPERFORMED BY: CB [facility] [address] [id number] Folate (Folic Acid), Serum >20.0 ng/mL (Normal) Comments: A serum folate concentration of less than 3.1 ng/mL isconsidered to represent clinical deficiency. :35 VITAMIN B-12 (CYANOCOBALAMIN) Comments: PATIENT NOT FASTINGPERFORMED BY: CB [facility] [address]dm[address] [place] [id number] (49396) Vitamin B12 862 pg/mL (Normal) Range: 211-946 :35 TSH (94871) Comments: PATIENT NOT FASTINGPERFORMED BY: CB [facility] Y[address]bbj[address] [place] [id number] TSH 0.695 {uIU/mL} (Normal) Range: 0.450-4.500 :35 SED RATE ERYTHROCYTE (14812) Comments: PATIENT NOT FASTINGPERFORMED BY: CB [facility] [address]ajxg[address] [place] [id number] Sedimentation Rate-Westergren 3 mm/h (Normal) Range: 0-32 :35 RHEUMATOID FACTOR-QUANT (26214) Comments: PATIENT NOT FASTINGPERFORMED BY: CB [facility] [address]mu[address] [place] [id number] RA Latex Turbid. <10.0 {IU/mL} (Normal) Range: 0.0-13.9 :35 METABOLIC PANEL, COMPREHENSIVE Comments: PATIENT NOT FASTINGPERFORMED BY: CB [facility] Ubtyjj[address] [place] [id number] (92210) ALT (SGPT) 13 [iU]/L (Normal) Range: 0-32 [...] Glucose, Serum 95 mg/dL (Normal) Range: 65-99 06-Lav-251084:35 C-REACTIVE PROTEIN (99828) Comments: PATIENT NOT FASTINGPERFORMED BY: [employer] ABCoJFK Medical CenterQewdkj4251 [address] [facility] [id number] C-Reactive Protein, Quant 5.1 mg/L (Abnormal) Range: 0.0-4.9 73-Ncl-392421:35 CBC (AUTO) (36101) Comments: PATIENT NOT FASTINGPERFORMED BY: [facility]FK [facility] CenterYqkpdw3609 [facility] [id number] Platelets 312 {x10E3/uL} (Normal) Range: 150-379 RDW 13.1 % (Normal) Range: 12.3-15.4 MCHC 34.3 g/dL (Normal) Range: 31.5-35.7 MCH 28.8 pg (Normal) Range: 26.6-33.0 MCV 84 fL (Normal) Range: 79-97 Hematocrit 43.5 % (Normal) Range: 34.0-46.6 Hemoglobin 14.9 g/dL (Normal) Range: 11.1-15.9 RBC 5.17 {x10E6/uL} (Normal) Range: 3.77-5.28 WBC 11.4 {x10E3/uL} (Abnormal) Range: 3.4-10.8 53-Vcz-924077:35 FILIBERTO (ANTINUCLEAR ANTIBODY) Comments: PATIENT NOT FASTINGPERFORMED BY: [facility] Xhjumy5707 [facility] [id number] (26394) FILIBERTO Direct Negative (Normal) 0-Kkf-130929:15 Basic Metabolic Profile (BMP) Comments: Test performed at:[facility] [address] [place] [address] GAP 6 (Normal) Range: 5-15 [...] <126 mg/dLsuggests IMPAIRED HOMEOSTASIS per A.D.A. criteria. 7-Kbo-779825:15 CBC W/Diff, Automated Comments: Test performed at:[facility] [address] [facility] 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 tropionin neg in ER Lizeth Whittington DO Echo CompleteBy: Lizeth Whittington DO On: 12-May-2018 Lizeth Hoyt DO CTA CHEST W/W/O CONTRAST (47620)By: On: 12-May-2018 Lizeth Hoyt DO, DO, Comments: r/o PE Lizeth HOLTER MONITORING WITH On: 12-May-2018 Intent INTERPRETATION (01353)By: Nelsy JORGE, Comments: 24hours Lizeth Ramirez DO MRI ANKLE AND FOOT (27853)By: Jared On: 23-Jan-2017 Intent CANE WEIGHER, Dianna Benoit ATTENDED SLEEP STUDY ([id number])By: On: 07-Nov-2016 Intent Lizeth Whittington DO, DO, Kathleen Ultrasound - Breast - LeftBy: On: 19-Oct-2014 Intent Justa Fulton MD MAMMOGRAM, SCREENING, BOTH BREAST On: 19-Oct-2014 Intent ([id number])By: Justa Fulton MD Eprescribed prescriptions ([id number])By: On: 28-Apr-2013 Intent Long DIRECTOR OF RETAIL, Kenna L Aerosol Treatment ([id number])By: Donaldo On: 14-Apr-2013 Intent Justa JASON Pulse Oximetry (64495)By: Romero On: 14-Apr-2013 Intent GUILHERME EKG (61430)By: Lizeth Whittington DO On: 19-Oct-2012 Intent Lizeth Whittington DO Comments: done at [facility] Instructions Name Dates Details Quit smoking : [...] PAIN (786.59) [facility] HospitalBrianna Bennett; saurav guarantor
--- OUTSIDE RECORDS SUMMARY | 2018-09-29 12:32 | XMS RPT_ITS ---
:1975 Author Organization OHIP Support Name Relationship Address Phone GINA BENNETT Unavailable [address] + [place] [address] UE Unavailable Unavailable Unavailable GINA BENNETT Unavailable [address] + [place] [address] UE Unavailable Unavailable Unavailable GINA BENNETT Unavailable [address] + [place] [address] UE Unavailable Unavailable Unavailable GINA BENNETT Unavailable [address] + [place] [address] UE Unavailable Unavailable Unavailable GINA BENNETT Unavailable [address] + [place] [address] UE Unavailable Unavailable Unavailable GINA BENNETT Unavailable [address] + [place] [address] UE Unavailable Unavailable Unavailable GINA BENNETT Unavailable [address] + [place] [address] UE Unavailable Unavailable Unavailable GINA BENNETT Unavailable [address] + [place] [address] UE Unavailable Unavailable Unavailable GINA BENNETT Unavailable [address] + [place] [address] UE Unavailable Unavailable Unavailable GINA BENNETT Unavailable [address] + [place] [address] UE Unavailable Unavailable Unavailable GINA BENNETT Unavailable [address] + [place] [address] UE Unavailable Unavailable Unavailable GINA BENNETT Unavailable [address] + [place] [address] UE Unavailable Unavailable Unavailable GINA BENNETT Unavailable [address] + [place] [address] UE Unavailable Unavailable Unavailable Care Team Providers Name Role Phone Nelsy, Lizeth Primary Care Unavailable Claudia, Peewee Admitting Unavailable Jamel, Marques Attending Unavailable Claudia, Peewee Admitting Unavailable Claudia, Peewee Attending Unavailable Nelsy, Lizeth Primary Care Unavailable Claudia, Peewee Consulting Unavailable Issa Montaguerey Attending Unavailable [place]upage, Irvin Referring Unavailable Nelsy, Lizeth Primary Care Unavailable Cody Barone Attending Unavailable Nelsy, Lizeth Primary Care Unavailable Cody Landa Attending Unavailable Claudia, Peewee Admitting Unavailable Jamel, Marques Attending Unavailable Nelsy, Lizeth Primary Care Unavailable Jamel, Marques Consulting Unavailable Nelsy, Lizeth Attending Unavailable Nelsy, Lizeth Referring Unavailable Nelsy, Lizeth Primary Care Unavailable Nelsy, Lizeth Attending Unavailable Nelsy, Lizeth Referring Unavailable Nelsy, Lizeth Primary Care Unavailable Nelsy, Lizeth Primary Care Unavailable Cody Sheikh Attending Unavailable Nelsy, Lizeth Attending Unavailable Nelsy, Lizeth Referring Unavailable Nelsy, Lizeth Primary Care Unavailable Sammy, Jackson Attending Unavailable Nelsy, Lizeth Referring Unavailable [place], Vinh Attending Unavailable Nelsy, Lizeth Referring Unavailable Chelita Steele [employer] Attending Unavailable Chelita Steele [employer]PER[employer] Referring Unavailable Nelsy, Lizeth Primary Care Unavailable PROBLEMS PROBLEMS DATE TYPE CONDITION / CODE ATTENDING STATUS SOURCE 05/31/2018 Unknown R05 - Cough / Chelita Steele Active [facility] R05(ICD-10) [facility] Repository 05/31/2018 Unknown R01.1 - Cardiac [place], Active [place] murmur, unspecified / Vinh [facility] R01.1(ICD-10) Hospital Repository 05/31/2018 Unknown R42 - Dizziness and Sammy, Jackson Active [facility] giddiness / Community R42(ICD-10) Hospital Repository 08/28/2017 Unknown R94.31 - Abnormal Cody Barone Active [facility] electrocardiogram Community [ECG] [EKG] / Hospital R94.31(ICD-10) Repository PROCEDURES PROCEDURES No Procedure Records FoundRESULTS RESULTS 12 LEAD ELECTROCARDIOGRAM Observed: 06/30/2018 Status: F Source: [place] 4:00 PM [facility] [place] [facility] Cardiovascular Services [address] [place] [address] 12 Lead EKG 06/27/18 0319 MR#: [id number] Acct: [id number] Name: BRIANNA BENNETT Rep #: [id number] : 1975 42 From: Javier Christianson MD Attending Dr: Marques Mccullough MD Status: DIS SHAHZAD Ordering Dr: Peewee Echevarria MD Date: 06/27/18 Location: [facility] Sex: F C Admitted: 06/26/18 Test Reason : ADM EKG Blood Pressure : / mmHG Vent. Rate : 075 BPM Atrial Rate : 075 BPM P-R Int : 166 ms QRS Dur : 088 ms QT Int : 416 ms P-R-T Axes : 059 015 056 degrees QTc Int : 464 ms Normal sinus rhythm Possible Lateral infarct (cited on or before 19-OCT-2012) Inferior infarct , age undetermined Abnormal ECG When compared with ECG of 12-MAY-2018 19:10, Vent. rate has decreased BY 40 BPM Questionable change in initial forces of Anterior leads Confirmed by JAVIER CHRISTIANSON MD ([id number]), supervising editor trailer JAMAL ADAMS ([id number]) on 06/30/2018 4:00:29 PM Referred By: CLAUDIA Confirmed By:JAVIER CHRISTIANSON MD 06/30/18 1600 Date Javier Christianson MD CC: Lizeth Wilks DO; Peewee Echevarria MD; Marques Mccullough MD Signed 12 LEAD ELECTROCARDIOGRAM Observed: 06/30/2018 Status: F Source: [place] 3:31 PM [facility] [place] [facility] Cardiovascular Services [address] [place] [address] 12 Lead EKG 06/26/18 2146 MR#: [id number] Acct: [id number] Name: BRIANNA BENNETT Rep #: [id number] : 1975 42 From: Javier Christianson MD Attending Dr: Marques Mccullough MD Status: DIS SHAHZAD Ordering Dr: Ayanna Deal MD Date: 06/26/18 Location: U Sex: F C Admitted: 06/26/18 Test Reason : LEG PAIN Blood Pressure : / mmHG Vent. Rate : 076 BPM Atrial Rate : 076 BPM P-R Int : 172 ms QRS Dur : 090 ms QT Int : 416 ms P-R-T Axes : 064 035 047 degrees QTc Int : 468 ms Normal sinus rhythm Possible Left atrial enlargement Possible Lateral infarct , age undetermined Inferior infarct , age undetermined Abnormal ECG Confirmed by JAVIER CHRISTIANSON MD ([id number]), supervising editor trailer JAMAL ADAMS ([id number]) on 06/30/2018 3:31:13 PM Referred By: CARMEN Confirmed By:JAVIER CHRISTIANSON MD 06/30/18 1531 Date Javier Christianson MD CC: Ayanna Deal MD; Lizeth Wilks DO; Marques Mccullough MD Signed VENOUS DUPLEX LOWER Observed: 06/29/2018 Status: F Source: [place] EXTREMITY 7:29 PM [facility] [place] [facility] Cardiovascular Services [address] [place] [address] Venous Duplex - Mariusz Extrem 06/28/18 1046 MR#: [id number] Acct: [id number] Name: BRIANNA BENNETT Rep #: [id number] : 1975 42 From: Wilian Olivares MD Attending Dr: Marques Mccullough MD Status: DIS SHAHZAD Ordering Dr: Peewee Echevarria MD Date: 06/27/18 Location: U Sex: F C Admitted: 06/26/18 Reason For Study: PULM EMB RIGHT LEFT GSV is normal. GSV is normal. CFV is compressible, spontaneous, phasic, CFV is compressible, spontaneous, phasic, competent and demonstrates normal competent, and demonstrates normal augmentation. augmentation. FV is compressible, spontaneous, phasic, FV is compressible, spontaneous, phasic, competent and demonstrates normal competent and demonstrates normal augmentation. augmentation. POP V is compressible, spontaneous, phasic, POP V is compressible, spontaneous, phasic, competent and demonstrates normal competent and demonstrates normal augmentation. augmentation. T/P Trunk is compressible. T/P Trunk is compressible. PTV is compressible. PTV is compressible. RT PerV is compressible. LT PerV is compressible. Procedure Exam performed portable in patient room. A preliminary report was called and/or faxed to [facility]. Interpretation Summary Deep veins of the lower extremities are bilaterally patent and compressible segmentally. There is no evidence of deep vein thrombosis on either side. Valvular competence appears intact within the proximal deep venous systems bilaterally. The greater saphenous veins appear bilaterally patent and compressible segmentally. Ordering Physician: Peewee Echevarria Referring Physician: LIZETH WILKS Performed By: Palak Ramírez, STELLA, RVT 06/29/181927 Date Wilian Olivares MD CC: Lizeth Wilks DO; Peewee Echevarria MD; Marques Mccullough MD Date Dictated: 06/28/18 1046 Date Transcribed: 06/29/181927 Recruiting Manager: Signed DISCHARGE SUMMARY Observed: 06/29/2018 Status: F Source: [place] 6:54 PM [facility] [place] [facility] Medical Records Department [address] [place] [address] Discharge Summary 06/28/18 1015 MR#: [id number] Acct: [id number] Name: BRIANNA BENNETT Rep #: [id number] : 1975 42 From: Marques Mccullough MD PCP: Lizeth Wilks DO Status: DIS SHAHZAD Y Location: [place] [address] Discharge Date and Diagnosis Date of Admission: 06/27/18 Date of Discharge: 06/28/18 - Primary Discharge Diagnosis Active and Suspected Problems Left leg pain (Acute) Acute DVT or repeat pulmonary embolism ruled out History of PE on [facility] Hospital Course and Treatment Imaging Results: 06/28/18 11:00 Lung Scan Vent/Perf [NM] Routine Summary of Care Provided: The patient is a 42-year-old with history of bilateral PE, diagnosed in April, on Eliquis who comes in with complaints of left lower extremity pain and hypoxia. Patient complain of jesus horse with a spasm in posterior aspect of left thigh and knee region. 1. Left lower extremity pain, predominantly posterior aspect of thigh: D-dimer is negative. Serial troponin enzymes negative. Patient is taking Eliquis, claims very compliant. Venous Doppler was done and reported negative for acute DVT. D-dimer is 0.32. Patient was apprehensive that last time even d-dimer was negative she had PE. 2. Bilateral PE: As venous Doppler was negative, d-dimer is also negative. No tachycardia, tachypnea or hypoxia. Patient is already on Eliquis and VQ scan will be futile as there is very low suspicion of recurrent PE with negative DVT in lower extremities. Patient understood that and VQ scan was canceled with her agreement. 3. DVT PPx- On Eliquis. Discharge medication reconciliation done. Follow-up instructions completed. Patient will complete 3 months of anticoagulant in July and knows that PCP will do hypercoagulable/hereditary blood clotting disorder workup. If something comes positive and workup, will need hematology consult. Discussed with the patient and her mother. Total time spent, exact 35 minutes on discharge meds reconciliation, examination, review of imaging and blood test and discussion with the patient on follow-up instructions. Subjective: Patient had left knee and left thigh jesus horse prior to admission. She was concerned of DVT and repeat PE although she is taking Eliquis for diagnosed PE in April 2018. At that time also she had negative venous Doppler and negative d-dimer. D-dimer is negative. Serial troponin enzymes are negative. Venous Doppler was done and is negative for acute DVT. - Physical Exam Vital Signs Temp Pulse Resp BP Pulse Ox 98.3 F 79 18 123/80 H 93 06/28/18 07:57 06/28/18 07:57 06/28/18 07:57 06/28/18 07:57 06/28/18 07:57 Oxygen Delivery Method Room Air Weight: 219 lb 2.232 oz Body Mass Index (BMI) 35.4 Intake and Output for Last 24 Hours Intake Total 1390 / 1390 Balance 1390 / 1390 Laboratory Tests Past 24 Hrs Discharge Activity: Return to Normal Activity Call your doctor if you observe: Fever of 101 or Higher, Shortness of breath, Fainting spells, Chest pain, Increased palpitations (irregular heartbeat), Calf discomfort Home Medications: Medications to take at Discharge Multivitamin [Multiple Vitamins] 1 tab PO DAILY 05/12/18 Apixaban [Eliquis] 1 tab PO BID 06/26/18 Primary Care Physician: Lizeth Wilks DO [Primary Care Provider] - Please follow up with your Primary Care Physician in: In 2 weeks Medical Necessity - Tobacco Use Smoking Status: Former smoker Tobacco Use: Non-smoker Meaningful Use Info Meaningful Use Diagnoses (Choose all that apply): None applicable Code Visit OBSV E AND M: 97033 Observation care discharge 06/29/18 5101 <Electronically signed by Marques Mccullough MD> Date Marques Mccullough MD Cosigner Signature (if applicable): Date CC: Lizeth Wilks DO; Marques Mccullough MD Signed DISCHARGE INSTRUCTION Observed: 06/28/2018 Status: F Source: [place] 10:15 AM [facility] [place] [facility] Medical Records Department [address] [place] [address] Instructions for Home/Discharge Instructions 06/28/18 1013 MR#: [id number] Acct: [id number] Name: BRIANNA BENNETT Rep #: [id number] : 1975 42 From: Marques Mccullough MD PCP: Lizeth Wilks DO Status: ADM SHAHZAD - Discharge Diagnoses Current Active Problems: Current Active and Chronic Problems Pulmonary emboli (Acute) Left leg pain (Acute) Chest pain (Acute) You will use the following diet at home:: Regular Your food should be the consistency of: Regular Discharge Activity: Return to Normal Activity Call your doctor if you observe: Fever of 101 or Higher, Shortness of breath, Fainting spells, Chest pain, Increased palpitations (irregular heartbeat), Calf discomfort Allergies/Adverse Reactions: Allergies latex Allergy (Verified 06/26/18 20:40) Rash sulfamethoxazole [From Bactrim] Allergy (Verified 06/26/18 20:40) Hives trimethoprim [From Bactrim] Allergy (Verified 06/26/18 20:40) Hives Iodinated Contrast- Oral and IV Dye [CONTRASTS] Adverse Reaction (Verified 06/26/18 20:40) Other sodium phenothol Allergy (Uncoded 06/26/18 20:40) Anaphylaxis Medications to take at Discharge Multivitamin [Multiple Vitamins] 1 tab PO DAILY 05/12/18 Apixaban [Eliquis] 1 tab PO BID 06/26/18 Primary Care Physician: Lizteh Wilks DO [Primary Care Provider] - Please follow up with your Primary Care Physician in: In 2 weeks Test Results: Test results from this visit will be discussed in further detail at your follow-up appointment, if applicable. 06/28/18 1015 <Electronically signed by Marques Mccullough MD> Date Marques Mccullough MD CC: Lizeth Wilks DO CBC W/DIFF, AUTOMATED Collected: 06/28/2018 Status: F Source: [place] 6:25 AM [facility] [place] [facility] TYPE CODE TESTS RESULT OUT OF RANGE REFERENCE UNITS LAB L100.1000 4.4-11.0 K/mm3 High WBC 11.1 LAB L100.1200 4.2-5.4 M/mm3 Normal RBC 4.73 LAB L100.1300 12.0-15.0 g/dl Normal HGB 13.7 LAB L100.1400 37-47 % Normal HCT 41.6 LAB L100.1500 81-99 fL Normal MCV 87.9 LAB L100.1600 27.0-32.0 pg Normal MCH 29.0 LAB L100.1700 32-36 g/gl Normal MCHC 32.9 LAB L100.1810 11.6-14.6 % Normal RDW CV 13.1 LAB L100.1820 35.1-43.9 fl Normal RDW SD 41.9 LAB L100.1900 150-450 K/mm3 Normal PLT 264 LAB L100.2000 6.2-12.0 fl Normal MPV 9.6 LAB L100.2100 47-70 % High NEUT% 70.2 LAB L100.2200 19-41 % Normal LY% 19.9 LAB L100.2300 0-10 % Normal MONO% 5.9 LAB L100.2400 0-5 % Normal EO% 3.1 LAB L100.2500 0-1 % Normal BASO% 0.6 LAB L100.2550 0.0-0.9 % Normal IM GRAN % 0.300 Result Comment: IG% - Immature Granulocytes (promyelocytes, myelocytes and metamyelocytes) > 1% indicates that a LEFT SHIFT is Present. LAB L100.2620 2.0-7.7 X10 3/uL High Absolute Neut 7.8 LAB L100.2720 0.83-4.51 X10 3/ul Normal Absolute Lymph 2.21 Performed By: #### L100.0100 #### [facility] [address] [place], [place], [id number] BASIC METABOLIC Collected: 06/28/2018 Status: F Source: [place] PROFILE (BMP) 6:25 AM [facility] [place] [facility] TYPE CODE TESTS RESULT OUT OF RANGE REFERENCE UNITS LAB L501.0100 74-106 mg/dL High GLU 108 Result Comment: Fasting Glucose result from 100 to 125 mg/dL suggests IMPAIRED HOMEOSTASIS per A.D.A. criteria. Please note revised GLUCOSE reference range effective 2017. LAB L501.1000 7-18 mg/dL Normal BUN 11 LAB L501.1100 0.55-1.02 mg/dL Low CREAT,SERUM 0.53 Result Comment: The validity of the calculated GFR AND GFRAA in patients over 70 years has not been determined. Clinical correlation is essential. LAB L501.1110 >60 mL/min Normal EST GFR 132 Result Comment: Non- GFR Calc LAB L501.1115 >60 mL/min Normal EST GFR - AA 159 Result Comment: GFR Calc LAB L501.1255 ml/min Normal Estimated CRCL 126.81 LAB L501.1300 10-20 RATIO High BUN/CRE 20.6 LAB L501.2200 8.5-10 mg/dL .1 CA Normal 9.4 LAB L501.5300 136-14 mmol/L 5 NA Normal 143 LAB L501.5600 3.5-5. mmol/L 1 K Normal 4.1 LAB L501.5900 98-107 mmol/L High CL 109 LAB L501.6100 21.0-3 mmol/L 2.0 CO2 Normal 27.0 LAB L501.6200 5-15 GAP Normal 7 Performed By: #### L500.2500 #### [facility] [address] [place], [place], [address] D-DIMER QUANTITATIVE Collected: 06/27/2018 Status: F Source: [place] (DVT/PE) 2:32 PM [facility] [place] [facility] TYPE CODE TESTS RESULT OUT OF RANGE REFERENCE UNITS LAB L300.8000 0.27-0.49 FEU/ug/m Normal D-DIMER 0.32 QUANT Result Comment: NORMAL D-Dimer level (<0.50) indicates no DVT or PE. Performed By: #### L300.8000 #### [facility] [address] [place], [place], [address] TROPONIN-I Collected: 06/27/2018 Status: F Source: [place] 8:42 AM [facility] [place] [facility] Order Comment: 'TROP' Serial specimen #1, #2 or #3: 3 TYPE CODE TESTS RESULT OUT OF RANGE REFERENCE UNITS LAB L501.4010 <0.045 ng/mL Normal < 0.015 TROPONIN-I Result Comment: TROPONIN-I EXPECTED VALUES <0.045 Negative 0.045 - 0.590 Consistent with Cardiac Damage > OR = 0.600 Critical Value Not every elevated troponin is indicative of OR. These values should be used with clinical judgement in examining the patient's clinical picture for diagnosis. To establish a diagnosis of OR versus myocardial injury, there must be a demonstrated rise and/or fall in the troponin values, in addition to ischemic symptoms, EKG changes, new regional wall motion abnormality, and/or angiographical evidence. PLEASE NOTE: REFERENCE RANGES EDITED 17 Performed By: #### L501.4010 #### [facility] [address] [place], [address] TROPONIN-I Collected: 06/27/2018 Status: F Source: [place] 6:00 AM [facility] Order Comment: 'TROP' Serial specimen #1, #2 or #3: 2 TYPE CODE TESTS RESULT OUT OF RANGE REFERENCE UNITS LAB L501.4010 <0.045 ng/mL Normal < 0.015 TROPONIN-I Result Comment: TROPONIN-I EXPECTED VALUES <0.045 Negative 0.045 - 0.590 Consistent with Cardiac Damage > OR = 0.600 Critical Value Not every elevated troponin is indicative of OR. These values should be used with clinical judgement in examining the patient's clinical picture for diagnosis. To establish a diagnosis of OR versus myocardial injury, there must be a demonstrated rise and/or fall in the troponin values, in addition to ischemic symptoms, EKG changes, new regional wall motion abnormality, and/or angiographical evidence. PLEASE NOTE: REFERENCE RANGES EDITED 17 Performed By: #### L501.4010 #### [facility] [address] [facility] [place], [address] BASIC METABOLIC Collected: 06/27/2018 Status: F Source: [place] PROFILE (BMP) 6:00 AM [facility] [place] [facility] TYPE CODE TESTS RESULT OUT OF RANGE REFERENCE UNITS LAB L501.0100 74-106 mg/dL Normal GLU 106 Result Comment: Fasting Glucose result from 100 to 125 mg/dL suggests IMPAIRED HOMEOSTASIS per A.D.A. criteria. Please note revised GLUCOSE reference range effective 2017. LAB L501.1000 7-18 mg/dL Normal BUN 11 LAB L501.1100 0.55-1.02 mg/dL Low CREAT,SERUM 0.47 Result Comment: The validity of the calculated GFR AND GFRAA in patients over 70 years has not been determined. Clinical correlation is essential. LAB L501.1110 >60 mL/min Normal EST GFR 151 Result Comment: Non- GFR Calc LAB L501.1115 >60 mL/min Normal EST GFR - AA 183 Result Comment: GFR Calc LAB L501.1255 ml/min Normal Estimated CRCL 142.99 LAB L501.1300 10-20 RATIO High BUN/CRE 23.3 LAB L501.2200 8.5-10 mg/dL .1 CA Normal 9.0 LAB L501.5300 136-14 mmol/L 5 NA Normal 142 LAB L501.5600 3.5-5. mmol/L 1 K Normal 4.1 LAB L501.5900 98-107 mmol/L High CL 109 LAB L501.6100 21.0-3 mmol/L 2.0 CO2 Normal 26.0 LAB L501.6200 5-15 GAP Normal 7 Performed By: #### L500.2500 #### [facility] [address] [place], [address] HISTORY AND PHYSICAL Observed: 06/27/2018 Status: F Source: [place] EXAM 5:24 AM [facility] [place] [facility] Medical Records Department [address] [place] [address] History and Physical 06/27/18 0517 MR#: [id number] Acct: [id number] Name: BRIANNA BENNETT Rep #: [id number] : 1975 42 From: Peewee Echevarria MD PCP: Lizeth Wilks DO Status: ADM SHAHZAD Y Location: [place] [address] Problem List (1) Pulmonary emboli Status: Acute (2) Left leg pain Status: Acute (3) Chest pain Status: Acute History of Present Illness Date of Admission: 06/27/18 Chief Complaint: Left leg pain The patient is a 42 year old female w/ h/o PE is admitted for left leg pain. She has sudden onset of left upper thigh pain that started today. Pain is moderate and constant. Pain is dull aching and is not associated with movement. No h/o injury. Nothing improved or worsened her pain. She also noted occasional chest pain and SOB in the past 2 weeks. Nothing makes her chest pain worse or better. Her chest pain is not associated with exertion. Past Medical History Allergies acetaminophen [From Tylenol] Allergy (Verified 06/26/18 20:40) Anaphylaxis latex Allergy (Verified 06/26/18 20:40) Rash sulfamethoxazole [From Bactrim] Allergy (Verified 06/26/18 20:40) Hives trimethoprim [From Bactrim] Allergy (Verified 06/26/18 20:40) Hives Iodinated Contrast- Oral and IV Dye [CONTRASTS] Adverse Reaction (Verified 06/26/18 20:40) Other sodium phenothol Allergy (Uncoded 06/26/18 20:40) Anaphylaxis Home Medications: Ambulatory Orders Medication Instructions Recorded Multivitamin [Multiple Vitamins] 1 tab PO DAILY 05/12/18 Apixaban [Eliquis] 1 tab PO BID 06/26/18 Lives: Spouse/ Significant Other Smoking Status: Former smoker Tobacco Use: Non-smoker Alcohol: None Drugs: None Review of Systems Constitutional: Denies: Chills, Fever, Weight Change HEENT: Denies: Head Aches, Sinus Congestion, Sinus Drainage Cardiovascular: Reports: Chest Pain. Denies: Palpitations Respiratory: Denies: Cough, Shortness of breath at rest, Sputum production Gastrointestinal: Denies: Abdominal Pain, Nausea, Vomiting Genitourinary: Denies: Dysuria Musculoskeletal: Denies: Joint Pain, Joint Tenderness Skin: Denies: Rash, Wounds Neurological: Denies: Numbness, Tingling, Focal weakness Psychiatric: Denies: Anxiety, Depression, Homicidal Ideations, Suicidal Ideations Hematologic/ Lymphatic: Denies: Easy Bruising, Easy Bleeding VTE Information - Inpt Only VTE Present on Admission: No VTE Mechan Device Prophylaxis: SCD's VTE Pharm Prophylaxis ordered?: Yes Patient Problems: Active and Suspected Problems Pulmonary emboli (Acute) Left leg pain (Acute) Chest pain (Acute) - Physical Exam General: Alert, Oriented x3, Cooperative HEENT: Atraumatic, PERRLA, EOMI, Normocephalic Neck: Supple, No JVD, Negative Carotid Bruits Lungs: Clear to auscultation, Normal air movement Cardiovascular: Regular rate, No murmurs Abdomen: Bowel Sounds Present, Soft, Non Tender Extremities: No edema, Capillary Refill Less than 3 Seconds Skin: No rashes, No breakdown Musculoskeletal: No Tenderness to Palpation of Joints or Extremities Neurological: Cranial nerves II-XII grossly intact Psych/Mental Status: Normal Affect, Appropriate Vital Signs Temp Pulse Resp BP Pulse Ox 97.4 F L 78 18 127/82 H 93 06/27/18 01:37 06/27/18 03:07 06/27/18 01:37 06/27/18 01:37 06/27/18 01:37 Oxygen Delivery Method Room Air Weight: 99.4 kg Body Mass Index (BMI) 35.4 Laboratory Tests Past 24 Hrs WBC 8.3 RBC 4.65 Hgb 13.4 Hct 40.4 MCV 86.9 MCH 28.8 MCHC 33.2 RDW 12.9 RDW Differential 41.4 Plt Count 263 Assessment/Plan All Active Problems Pulmonary emboli (Acute) Left leg pain (Acute) Chest pain (Acute) 42 year old female w/ h/o PE is admitted for left leg pain. 1) Left leg pain: Will r/o DVT. Will get doppler. Supportive care. 2) Chest pain: Likely MSK. Will get serial trops. Will also get ECHO given h/o PE to r/o right heart strain. 3) H/o PE: Will resume eliquis. If DVT, will consider transition to coumadin. Code Visit OBSV E AND M: 68005 Initial observation care L2 06/27/18 0524 <Electronically signed by Peewee Echevarria MD> Date Peewee Echevarria MD Cosigner Signature: Date (if applicable) CC: Lizeth Wilks DO; Peewee Echevarria MD Signed EMERGENCY DEPARTMENT Observed: 06/26/2018 Status: F Source: [place] SUMMARY 11:50 PM [facility] [place] [facility] Medical Records Department [address] [place] [address] Emergency Department Summary 06/26/18 2214 MR#: [id number] Acct: [id number] Name: BRIANNA BENNETT Rep #: [id number] : 1975 42 From: Ayanna Deal MD PCP: Lizeth Wilks DO Status: REG ER - ER Visit Summary Date of Service: 06/26/18 Chief Complaint: Left lower extremity pain History of Present Illness: The patient is a 42 F presenting with left lower extremity pain. She states this started yesterday. She has pain in the back of her left thigh. She does not recall any injury. She also notes she has had intermittent chest pain and shortness of breath with exertion over the past 1.5 weeks. She has a history of bilateral PE in April. She was started on Eliquis at that time. Physical Examination: Vitals are stable. Patient is afebrile. Alert no acute distress. HEENT exam is unremarkable. Neck is supple. Lungs are clear and equal bilaterally. Heart is regular rate and rhythm. Abdomen is soft nontender nondistended. Extremities are unremarkable. Skin is warm and dry. No focal neurologic deficit. Remainder of exam is unremarkable. Emergency Department Course and Treatment: EKG is sinus rate 76, unchanged from previous. Chest x-ray shows no acute process. Patient states she had an allergic reaction to CTA of her chest which caused her throat to close. She does not recall the entire incident. While in the emergency department her pulse ox has decreased to 87-88% on room air. We are unable to obtain an ultrasound at this time of day. CBC, chemistries unremarkable. Troponin is negative. Due to her hypoxia, inability to obtain CTA or ultrasound at this time, will discuss with hospitalist for observation for VQ scan. Disposition: Observation Impression: Chest pain, hypoxia, history of PE This note was generated with Project Colourjack dictation software. It may contain incorrect words, spelling, and punctuation that were not noted in review of the chart prior to signing ED Disposition - Plan for ED Patient: Chief Complaint: Lower Extremity Injury Referrals: Lizeth Wilks, DO [Primary Care Provider] - What to do if you have Problems For any increased pain, shortness of breath, bleeding, nausea or vomiting, chest pain, or any unexpected problems, contact your Primary Care Provider. Call [facility] ([phone]) or report to the closest Emergency Room. Call 911 if necessary. 06/26/18 2350 <Electronically signed by Ayanna Deal MD> Date Ayanna Deal MD Cosigner Signature (If Indicated): Date CC: Lizeth Wilks DO CBC W/DIFF, AUTOMATED Collected: 06/26/2018 Status: F Source: [place] 10:10 PM [facility] [place] [facility] TYPE CODE TESTS RESULT OUT OF RANGE REFERENCE UNITS LAB L100.1000 4.4-11.0 K/mm3 Normal WBC 8.3 LAB L100.1200 4.2-5.4 M/mm3 Normal RBC 4.65 LAB L100.1300 12.0-15.0 g/dl Normal HGB 13.4 LAB L100.1400 37-47 % Normal HCT 40.4 LAB L100.1500 81-99 fL Normal MCV 86.9 LAB L100.1600 27.0-32.0 pg Normal MCH 28.8 LAB L100.1700 32-36 g/gl Normal MCHC 33.2 LAB L100.1810 11.6-14.6 % Normal RDW CV 12.9 LAB L100.1820 35.1-43.9 fl Normal RDW SD 41.4 LAB L100.1900 150-450 K/mm3 Normal PLT 263 LAB L100.2000 6.2-12.0 fl Normal MPV 9.4 LAB L100.2100 47-70 % Normal NEUT% 50.7 LAB L100.2200 19-41 % Normal LY% 35.1 LAB L100.2300 0-10 % Normal MONO% 9.2 LAB L100.2400 0-5 % Normal EO% 4.1 LAB L100.2500 0-1 % Normal BASO% 0.8 LAB L100.2550 0.0-0.9 % Normal IM GRAN % 0.100 Result Comment: IG% - Immature Granulocytes (promyelocytes, myelocytes and metamyelocytes) > 1% indicates that a LEFT SHIFT is Present. LAB L100.2620 2.0-7.7 X10 3/uL Normal Absolute Neut 4.2 LAB L100.2720 0.83-4.51 X10 3/ul Normal Absolute Lymph 2.90 Performed By: #### L100.0100 #### [facility], [address] BASIC METABOLIC Collected: 06/26/2018 Status: F Source: [place] PROFILE (BMP) 10:10 PM [facility] TYPE CODE TESTS RESULT OUT OF RANGE REFERENCE UNITS LAB L501.0100 74-106 mg/dL Normal GLU 105 Result Comment: Fasting Glucose result from 100 to 125 mg/dL suggests IMPAIRED HOMEOSTASIS per A.D.A. criteria. Please note revised GLUCOSE reference range effective 2017. LAB L501.1000 7-18 mg/dL Normal BUN 15 LAB L501.1100 0.55-1.02 mg/dL Normal CREAT,SERUM 0.59 Result Comment: The validity of the calculated GFR AND GFRAA in patients over 70 years has not been determined. Clinical correlation is essential. LAB L501.1110 >60 mL/min Normal EST GFR 118 Result Comment: Non- GFR Calc LAB L501.1115 >60 mL/min Normal EST GFR - AA 143 Result Comment: GFR Calc LAB L501.1255 ml/min Normal Estimated CRCL 113.91 LAB L501.1300 10-20 RATIO High BUN/CRE 25.6 LAB L501.2200 8.5-10 mg/dL .1 CA Normal 8.8 LAB L501.5300 136-14 mmol/L 5 NA Normal 144 LAB L501.5600 3.5-5. mmol/L 1 K Normal 3.5 LAB L501.5900 98-107 mmol/L High CL 108 LAB L501.6100 21.0-3 mmol/L 2.0 CO2 Normal 27.0 LAB L501.6200 5-15 GAP Normal 9 Performed By: #### L500.2500, L501.4010 #### [facility] [address] [place], [place], [address] TROPONIN-I Collected: 06/26/2018 Status: F Source: [place] 10:10 PM [facility] [place] [facility] TYPE CODE TESTS RESULT OUT OF RANGE REFERENCE UNITS LAB L501.4010 <0.045 ng/mL Normal < 0.015 TROPONIN-I Result Comment: TROPONIN-I EXPECTED VALUES <0.045 Negative 0.045 - 0.590 Consistent with Cardiac Damage > OR = 0.600 Critical Value Not every elevated troponin is indicative of OR. These values should be used with clinical judgement in examining the patient's clinical picture for diagnosis. To establish a diagnosis of OR versus myocardial injury, there must be a demonstrated rise and/or fall in the troponin values, in addition to ischemic symptoms, EKG changes, new regional wall motion abnormality, and/or angiographical evidence. PLEASE NOTE: REFERENCE RANGES EDITED 17 Performed By: #### L500.2500, L501.4010 #### [facility] [address] [place], [address] CHEST 1 VIEW Observed: 06/26/2018 Status: F Source: [place] (PORTABLE) 9:35 PM [facility] [place] [facility] Imaging Services [address] [place] [address] Chest 1 View (Portable) MR#: [id number] Acct: [id number] Name: BRIANNA BENNETT Rep #: [id number] : 1975 F 42 From: Nik Ferrell MD PCP: Lizeth Wilks DO Status: REG ER Study: Chest 1 View (Portable) Date of Exam: 06/26/18 Exam# [id number] Ordering Dr: Ayanna Deal MD STUDY: X-RAY CHEST REASON FOR EXAM: Female, 42 years old. Chest pain, lower extremity edema TECHNIQUE: AP COMPARISON: 05/31/2018 FINDINGS: The lungs are clear and expanded. There is no demonstrated pleural abnormality. Normal size heart. Normal mediastinum and julia. Normal visualized pulmonary arteries. Normal visualized aortic arch and descending thoracic aorta. No acute bony process. There is no demonstrated abnormality of the visualized soft tissue structures of the upper abdomen. RAD/Chest 1 View (Portable) IMPRESSION: Stable, nonacute portable x-ray examination of the chest. Electronically Signed: Nik Ferrell MD at 21:58 EST , Service support , CC: Ayanna Deal MD; Lizeth Wilks DO Recruiting Manager: Signed CHEST PA AND LATERAL Observed: 05/31/2018 Status: F Source: [place] 4:08 PM [facility] Imaging Services [address] [place] [address] Chest PA and Lateral MR#: [id number] Acct: [id number] Name: BRIANNA BENNETT Rep #: [id number] : 1975 F 42 From: Jose Meade MD PCP: Lizeth Wilks DO Status: REG CLI Study: Chest PA and Lateral Date of Exam: 05/31/18 Exam# [id number] Ordering Dr: Cheliat Steele STUDY: X-RAY CHEST REASON FOR EXAM: Female, 42 years old. Cough TECHNIQUE: 2 views COMPARISON: 05/04/2018 FINDINGS: The lungs are clear and expanded. There is no demonstrated pleural abnormality. Normal size heart. Normal mediastinum and julia. Normal visualized pulmonary arteries. Normal visualized aortic arch and descending thoracic aorta. Normal visualized thoracic spine. Normal visualized ribs, clavicles, and shoulders. There is no demonstrated abnormality of the visualized soft tissue structures of the upper abdomen. RAD/Chest PA and Lateral IMPRESSION: Normal x-ray examination of the chest. No acute findings in the lungs Electronically Signed: Jose Meade MD at 6:59 EST Tel , Service support , CC: MABEL Steele; Lizeth Wilks DO Recruiting Manager: Signed SCREENING MAMM (CAD), Observed: 05/28/2018 Status: F Source: [place] BILAT 12:03 PM [facility] RE[facility]ITORY [facility] Imaging Services [address] [place] [address] SCREENING MAMM (CAD), BILAT MR#: [id number] Acct: [id number] Name: BRIANNA BENNETT Rep #: [id number] : 1975 F 42 From: Andrés Li MD PCP: Lizeth Wilks DO Status: REG CLI Study: SCREENING MAMM (CAD), BILAT Date of Exam: 05/28/18 Exam# [id number] Ordering Dr: Lizeth Wilks DO MAMMOGRAPHY - BILATERAL SCREENING REASON FOR EXAM: Female, 42 years old. Routine annual screening examination. PERTINENT HISTORY: Aunts with breast cancer. TECHNIQUE: Digital bilateral breast colby (3D mammographic acquisition) in the CC and MLO projections. 2-D mediolateral oblique (MLO) and craniocaudad (CC) views of both breasts were obtained. CAD: Full Field Digital Mammography with Computer Added Detection was performed. COMPARISON: Comparison is made with prior study dated October 23, 2014. FINDINGS: Breast Composition: The breasts are almost entirely fatty. There are no dominant masses or suspicious calcifications. Stable small benign-appearing bilateral axillary lymph nodes. No other significant abnormalities are identified. There has been no significant change since the prior study. BI/SCREENING MAMM (CAD), BILAT IMPRESSION: Stable bilateral screening mammogram. Yearly follow-up mammogram recommended. (A) ASSESSMENT CATEGORY: BIRADS Category 2: Benign. A letter regarding these results will be sent to the patient by the facility within 30 days. Approximately 10% of breast cancers are not detected by mammography. A normal mammogram should not delay biopsy of a clinically suspicious abnormality. [id number] Electronically Signed: Andrés Li MD at 12:44 EST Tel [phone], Service support , CC: Lizeth Wilks DO Recruiting Manager: Signed 12 LEAD ELECTROCARDIOGRAM Observed: 05/19/2018 Status: F Source: [place] 2:25 PM [facility] [facility] Cardiovascular Services [address] [place] [address] 12 Lead EKG 05/12/18 1910 MR#: [id number] Acct: [id number] Name: BRIANNA BENNETT Rep #: [id number] : 1975 42 From: Javier Christianson MD Attending Dr: Status: DEP ER Ordering Dr: Cody Sheikh MD Date: 05/12/18 Location: ED Sex: F C Admitted: Test Reason : CP Blood Pressure : / mmHG Vent. Rate : 115 BPM Atrial Rate : 115 BPM P-R Int : 160 ms QRS Dur : 084 ms QT Int : 328 ms P-R-T Axes : 062 025 037 degrees QTc Int : 453 ms Sinus tachycardia Possible Anterolateral infarct , age undetermined Abnormal ECG Confirmed by JAVIER CHRISTIANSON MD ([id number]), supervising editor trailer JAMAL ADAMS ([id number]) on 05/19/2018 2:25:35 PM Referred By: Lizeth Wilks Confirmed By:JAVIER CHRISTIANSON MD 05/19/18 1425 Date Javier Christianson MD CC: Cody Sheikh MD; Lizeth Wilks DO Signed ECHO, COMPLETE W/ Observed: 05/13/2018 Status: F Source: [place] CONTRAST 1:14 PM [facility] [place] [facility] Cardiovascular Services [address] [place] [address] Echo Complete W/ Contrast 05/13/18 1102 MR#: [id number] Acct: [id number] Name: BRIANNA BENNETT Rep #: [id number] : 1975 42 From: Vinh Hall MD Attending Dr: Lizeth Wilks DO Status: REG CLI Ordering Dr: Lizeth Wilks DO Date: 05/13/18 Location: CVS Sex: F C Admitted: Reason For Study: Murmur Procedure This was a 2D Doppler, Color Flow transthoracic echocardiogram. The study was technically limited. Contrast injection was performed. Exam performed in department. Left Ventricle Normal LV size. Mild concentric left ventricular hypertrophy. Left ventricular systolic function is hyperdynamic. The estimated ejection fraction is 75 %. No evidence for diastolic dysfunction. No regional wall motion abnormalities noted. Right Ventricle Normal RV size. Normal systolic function. Atria Normal left atrium. Normal right atrium. No doppler evidence for ASD. Bubble contrast study negative for right to [...] Vessels Normal sized aortic root. Pericardium/Pleural No pericardial effusion. Medication 22 gauge I.V. with prn adaptor inserted into right arm. Diluted definity 2ml given slow IV push to enhance endocardial definition. Performed a rapid injection of agitated mix of 9 cc saline and 1cc air to assess for atrial septal defect. MMode/2D Measurements AND Calculations LVIDd: 3.5 cm IVSd: 1.4 cm Ao root diam: 3.1 cm LVIDs: 2.2 cm LVPWd: 1.4 cm FS: 37.4 % LAV(MOD-bp): 57.7 ml LVAd ap4: 25.4 cm2 SV(MOD-sp4): 57.0 ml LAV(MOD-bp) Indexed: 28.7 ml/m2 EDV(MOD-sp4): 72.1 ml LAV(MOD-sp2): 63.7 ml EDV(sp4-el): 72.9 ml LAV(MOD-sp4): 51.6 ml [...] Ao V2 VTI: 32.7 cm LV V1 max: 162.9 cm/sec PA V2 max: 131.9 cm/sec LV V1 max P.6 mmHg LV V1 mean P.6 mmHg LV V1 mean: 98.9 cm/sec LV V1 VTI: 30.2 cm Interpretation Summary The study was technically limited. Contrast injection was performed. Left ventricular systolic function is hyperdynamic. The estimated ejection fraction is 75 %. Mild concentric left ventricular hypertrophy. Trivial mitral valve insufficiency. Trivial tricuspid valve insufficiency. Mild focal aortic valve thickening. Trivial pulmonic valve insufficiency. Unable to estimate RV systolic pressure/pulmonary artery pressure due to technically difficult study. No evidence for diastolic dysfunction. Bubble contrast study negative for right to left interatrial shunt. Ordering Physician: Lizeth Wilks Referring Physician: Lizeth Wilks Performed By: Greg Juarez RCS 05/13/18 1313 Date Vinh Hall MD CC: Lizeth Wilks DO Date Dictated: 05/13/18 1102 Date Transcribed: 05/13/18 131 Recruiting Manager: Signed EMERGENCY DEPARTMENT Observed: 05/13/2018 Status: F Source: [place] SUMMARY 12:22 AM [facility] [place] [facility] Medical Records Department [address] [place] [address] Emergency Department Summary 05/12/18 2155 MR#: [id number] Acct: [id number] Name: BRIANNA BENNETT Rep #: [id number] : 1975 42 From: Cody Sheikh MD PCP: Lizeth Wilks DO Status: DEP ER - ER Visit Summary Date of Service: 05/12/18 Chief Complaint: PE History of Present Illness: The patient is a 42 F referred by her PCP for bilateral pulmonary emboli. Patient was seen for chest pain and shortness of breath. She had a CTA done today. Based on the results, she was referred directly to the emergency department. She does have some chest tightness and mild shortness of breath. She has a history of MS, fibromyalgia, and [place]'s disease. She is a smoker. Denies hormone medications. Denies recent surgery or immobilization. Denies any history of PE or DVT. Physical Examination: Blood pressure 149/99. Heart rate 105. Afebrile. No acute distress. Sitting and breathing comfortably. Heart tachycardic but regular. Lungs clear. Abdomen soft. Calves soft and supple. Test Results: EKG showed sinus rhythm at a rate of 115. Ultrasound of her lower extremities showed nothing acute. White count 14.7. Glucose 107. Coags normal. Troponin normal. Previous test negative. Emergency Department Course and Treatment: Patient was discussed with Dr. Wilks. Patient would like to go home. I believe she is appropriate for outpatient [...] take part in any risky activities. No anti-inflammatories. Return right away for trauma or any bleeding. Treatment Plan: As above Disposition: Discharged Impression: 1. Bilateral pulmonary emboli This note was generated with Project Colourjack dictation software. It may contain incorrect words, spelling, and punctuation that were not noted in review of the chart prior to signing ED Disposition - Plan for ED Patient: Chief Complaint: Chest Pain Referrals: Lizeth Wilks DO [Primary Care Provider] - What to do if you have Problems For any increased pain, shortness of breath, bleeding, nausea or vomiting, chest pain, or any unexpected problems, contact your Primary Care Provider. Call [facility] ([phone]) or report to the closest Emergency Room. Call 911 if necessary. 05/13/1821 <Electronically signed by Cody Sheikh MD> Date Cody Sheikh MD Cosigner Signature (If Indicated): Date CC: Lizeth Wilks DO DISCHARGE INSTRUCTION Observed: 05/13/2018 Status: F Source: [place] 12:22 AM [facility] [place] [facility] Medical Records Department [address] [place] [address] [place] [address] Discharge Instruction 05/12/18 2158 MR#: [id number] Acct: [id number] Name: BRIANNA BENNETT Rep #: [id number] : 1975 42 From: Cody Sheikh MD PCP: Lizeth Wilks DO Status: DEP ER ED Disposition - Plan for ED Patient: Chief Complaint: Chest Pain Instructions: Pulmonary Embolism Prescriptions: Apixaban [Eliquis] 10 mg PO BID 7 Days #74 tab Referrals: Lizeth Wilks DO [Primary Care Provider] - What to do if you have Problems For any increased pain, shortness of breath, bleeding, nausea or vomiting, chest pain, or any unexpected problems, contact your Primary Care Provider. Call [facility] ([phone]) or report to the closest Emergency Room. Call 911 if necessary. 05/13/1821 <Electronically signed by Cody Sheikh MD> Date Cody Sheikh MD Cosigner Signature (If Indicated): Date CC: Lizeth Nelsy DO VENOUS DUPLEX Observed: 05/12/2018 Status: F Source: [place] IMAG/MARIUSZ EXTREM 7:28 PM [facility] [place] [facility] Imaging Services [address] [place] [address] Venous Duplex Imag/Mariusz Extrem MR#: [id number] Acct: [id number] Name: BRIANNA BENNETT Rep #: [id number] : 1975 F 42 From: Nasir Coppola DO PCP: Lizeth Wilks DO Status: REG ER Study: Venous Duplex Imag/Mariusz Extrem Date of Exam: 05/12/18 Exam# [id number] Ordering Dr: Cody Sheikh MD STUDY: VENOUS DOPPLER ULTRASOUND - BILATERAL LOWER EXTREMITIES [...] Vein: Normal compression. Peroneal Vein: Normal compression. US/Venous Duplex Imag/Mariusz Extrem IMPRESSION: Normal venous Doppler ultrasound of the bilateral lower extremities. Electronically Signed: Nasir DO Abdon at 20:15 EDT Tel [phone], Service support , CC: Cody Sheikh MD; Lizeth Wilks DO Recruiting Manager: Signed BASIC METABOLIC Collected: 05/12/2018 Status: F Source: [place] PROFILE (BMP) 7:18 PM [facility] [place] [facility] TYPE CODE TESTS RESULT OUT OF RANGE REFERENCE UNITS LAB L501.0100 74-106 mg/dL High GLU 107 Result Comment: Fasting Glucose result from 100 to 125 mg/dL suggests IMPAIRED HOMEOSTASIS per A.D.A. criteria. Please note revised GLUCOSE reference range effective 2017. LAB L501.1000 7-18 mg/dL Normal BUN 12 LAB L501.1100 0.55-1.02 mg/dL Normal CREAT,SERUM 0.56 Result Comment: The validity of the calculated GFR AND GFRAA in patients over 70 years has not been determined. Clinical correlation is essential. LAB L501.1110 >60 mL/min Normal EST GFR 125 Result Comment: Non- GFR Calc LAB L501.1115 >60 mL/min Normal EST GFR - AA 151 Result Comment: GFR Calc LAB L501.1255 ml/min Normal Estimated CRCL 120.01 LAB L501.1300 10-20 RATIO High BUN/CRE 21.4 LAB L501.2200 8.5-10 mg/dL .1 CA Normal 9.2 LAB L501.5300 136-14 mmol/L 5 NA Normal 140 LAB L501.5600 3.5-5. mmol/L 1 K Normal 3.7 LAB L501.5900 98-107 mmol/L CL Normal 105 LAB L501.6100 21.0-3 mmol/L 2.0 CO2 Normal 26.0 LAB L501.6200 5-15 GAP Normal 9 Performed By: #### L500.2500, L501.4010 #### [facility] [address] [place], [address] TROPONIN-I Collected: 05/12/2018 Status: F Source: [place] 7:18 PM [facility] [place] [facility] TYPE CODE TESTS RESULT OUT OF RANGE REFERENCE UNITS LAB L501.4010 <0.045 ng/mL Normal < 0.015 TROPONIN-I Result Comment: TROPONIN-I EXPECTED VALUES <0.045 Negative 0.045 - 0.590 Consistent with Cardiac Damage > OR = 0.600 Critical Value Not every elevated troponin is indicative of OR. These values should be used with clinical judgement in examining the patient's clinical picture for diagnosis. To establish a diagnosis of OR versus myocardial injury, there must be a demonstrated rise and/or fall in the troponin values, in addition to ischemic symptoms, EKG changes, new regional wall motion abnormality, and/or angiographical evidence. PLEASE NOTE: REFERENCE RANGES EDITED 17 Performed By: #### L500.2500, L501.4010 #### [facility] [address] [place], [address] CBC W/DIFF, AUTOMATED Collected: 05/12/2018 Status: F Source: [place] 7:15 PM [facility] [place] [facility] TYPE CODE TESTS RESULT OUT OF RANGE REFERENCE UNITS LAB L100.1000 4.4-11.0 K/mm3 High WBC 14.7 LAB L100.1200 4.2-5.4 M/mm3 Normal RBC 5.21 LAB L100.1300 12.0-15.0 g/dl High HGB 15.3 LAB L100.1400 37-47 % Normal HCT 45.3 LAB L100.1500 81-99 fL Normal MCV 86.9 LAB L100.1600 27.0-32.0 pg Normal MCH 29.4 LAB L100.1700 32-36 g/gl Normal MCHC 33.8 LAB L100.1810 11.6-14.6 % Normal RDW CV 13.2 LAB L100.1820 35.1-43.9 fl Normal RDW SD 41.7 LAB L100.1900 150-450 K/mm3 Normal PLT 275 LAB L100.2000 6.2-12.0 fl Normal MPV 9.9 LAB L100.2100 47-70 % Normal NEUT% 66.8 LAB L100.2200 19-41 % Normal LY% 24.9 LAB L100.2300 0-10 % Normal MONO% 5.6 LAB L100.2400 0-5 % Normal EO% 2.1 LAB L100.2500 0-1 % Normal BASO% 0.4 LAB L100.2550 0.0-0.9 % Normal IM GRAN % 0.200 Result Comment: IG% - Immature Granulocytes (promyelocytes, myelocytes and metamyelocytes) > 1% indicates that a LEFT SHIFT is Present. LAB L100.2620 2.0-7.7 X10 3/uL High Absolute Neut 9.8 LAB L100.2720 0.83-4.51 X10 3/ul Normal Absolute Lymph 3.67 Performed By: #### L100.0100 #### [facility] [address] [place], [address] PROTHROMBIN TIME W/INR Collected: 05/12/2018 Status: F Source: [place] 7:15 PM [facility] [place] [facility] TYPE CODE TESTS RESULT OUT OF RANGE REFERENCE UNITS LAB L300.4150 11.7-14.9 SECONDS Normal PROTIME 12.6 LAB L300.4200 Normal INR 0.9 Performed By: #### L300.3900, L300.4310 #### [facility] [place], [address] PARTIAL THROMBOPLAST Collected: 05/12/2018 Status: F Source: [place] TIME 7:15 PM [facility] [place] [facility] TYPE CODE TESTS RESULT OUT OF RANGE REFERENCE UNITS LAB L300.4310 24.1-36.2 Seconds Normal PTT 35.2 Performed By: #### L300.3900, L300.4310 #### [facility] [address] [place], [address] ,SERUM,HCG QUALI. Collected: Status: C Source: [place] 05/12/2018 7:15 PM [facility] [place] [facility] TYPE CODE TESTS RESULT OUT OF REFERENCE UNITS RANGE LAB L700.6700 =>Qualitative mIU/mL Normal HCG Qual 1 triggr LAB L700.7000 0-9 Nonpreg Negative Normal HCGSQUAL NEGATIVE Performed By: #### L700.6800 #### [facility] [address] [place], [address] CTA CHEST W/WO Observed: 05/12/2018 Status: F Source: [place] CONTRAST 2:15 PM [facility] [place] [facility] Imaging Services [address] [place] [address] CTA Chest W/WO Contrast MR#: [id number] Acct: [id number] Name: BRIANNA BENNETT Rep #: [id number] : 1975 F 42 From: Andrés Li MD PCP: Lizeth Wilks DO Status: REG CLI Study: CTA Chest W/WO Contrast Date of Exam: 05/12/18 Exam# [id number] Ordering Dr: Lizeth Wilks DO STUDY: CTA CHEST REASON FOR EXAM: Female, 42 years old. Possible pulmonary embolism. RADIATION DOSAGE (If Supplied By Facility): CTDIvol = ( 14.89 ) mGy, DLP = ( 762.85 ) mGycm TECHNIQUE: The examination was performed with the intravenous administration of 100CC ml of Isovue 370 contrast material. Post-processing of the angiographic images was performed, with multiplanar reformation and 3D reconstruction. Individualized dose optimization techniques were used for this CT. COMPARISON: None. FINDINGS: Nonocclusive intraluminal filling defects are seen in the branches of the both right and upper lobe pulmonary arteries in keeping with the pulmonary embolism. Normal thoracic aorta and visualized great vessels. There is no demonstrated aortic dissection. Normal heart and pericardium. Normal mediastinum. Normal hilar regions. Normal visualized trachea and bronchi. The lungs are well expanded. Normal pulmonary parenchyma. Normal pleura. Normal chest wall structures. There are degenerative changes of thoracic spine. Small sliding hiatal hernia. CT/CTA Chest W/WO Contrast IMPRESSION: Findings incomplete with multiple nonocclusive pulmonary emboli in branches of the right and left upper lobe pulmonary arteries. Electronically Signed: Andrés Li MD at 15:13 EDT Tel [phone], Service support , CC: Lizeth Wilks DO Recruiting Manager: Signed 12 LEAD ELECTROCARDIOGRAM Observed: 05/07/2018 Status: F Source: [place] 1:06 PM [facility] REPOSITORY [facility] Cardiovascular Services [address] [place] [address] 12 Lead EKG 05/04/18 1326 MR#: [id number] Acct: [id number] Name: BRIANNA BENNETT Rep #: [id number] : 1975 42 From: Vinh Hall MD [...] ECG Confirmed by RAFAEL JASON, VINH ([id number]), supervising editor trailer JAMAL ADAMS ([id number]) on 05/07/2018 1:06:22 PM Referred By: PARVEZ/ALPHONSE Confirmed By:VINH HALL MD 05/07/18 1306 Date Vinh Hall MD CC: Cody Landa DO; Lizeth Wilks DO Signed EMERGENCY DEPARTMENT Observed: 05/04/2018 Status: F Source: [place] SUMMARY 3:44 PM [facility] [place] [facility] Medical Records Department [address] [place] [address] Emergency Department Summary 05/04/18 1421 MR#: [id number] Acct: [id number] Name: BRIANNA BENNETT Rep #: [id number] : 1975 42 From: Cody Landa DO PCP: Lizeth Wilks DO Status: DEP ER - ER Visit Summary Date of Service: 05/04/18 Chief Complaint: Shortness of breath and fast heart rate History of Present Illness: [...] to feel her heart beating faster while shopping and she got lightheaded. She went to [...] and that has been negative. She denies any recent surgery. beginning last week she did have a cough has been nonproductive. Physical Examination: Afebrile blood pressure 160/92 in triage heart rate of 125 respirations are 26 pulse ox 95% and afebrile. Gen: Well-nourished well-developed Head: Normocephalic atraumatic Eyes: Perrl EOMI ENT: TMs clear no rhinorrhea moist mucous membranes Neck: Supple no lymphadenopathy no JVD nontender CVS: Regular rate and tachycardic rhythm no murmurs normal S1-S2 Respiratory: No distress clear to auscultation bilaterally chest nontender Abdomen: Soft nontender nondistended normal bowel sounds no masses Back: Nontender Extremity: Nontender no edema Skin: Normal color no rash Neuro: alert orientated 3 CN II-XII intact normal strength sensation reflexes gait cerebellar Psych: Anxious Test Results: EKG shows a sinus rhythm at a rate of 123. White count 11.6. Chemistries are normal. Troponin is negative. D-dimer negative at 0.44. Chest x-ray showed a possible early lingular infiltrate. Emergency Department Course and Treatment: Patient was observed on [...] 2. Dyspnea This note was generated with [employer] dictation software. It may contain incorrect words, spelling, and punctuation that were not noted in review of the chart prior to signing ED Disposition - Plan for ED Patient: Disposition: Home or Assisted Living Chief Complaint: Shortness of Breath Instructions: Walking Pneumonia Prescriptions: Azithromycin [Zithromax Z-Bob] 250 mg PO UD #1 box Referrals: Lizeth Wilks DO [Primary Care Provider] - As soon as possible What to do if you have Problems For any increased pain, shortness of breath, bleeding, nausea or vomiting, chest pain, or any unexpected problems, contact your Primary Care Provider. Call [facility] ([phone]) or report to the closest Emergency Room. Call 911 if necessary. 05/04/18 1544 <Electronically signed by Cody Landa DO> Date Cody Landa DO Cosigner Signature (If Indicated): Date CC: Lizeth Wilks DO CHEST PA AND LATERAL Observed: 05/04/2018 Status: F Source: [place] 1:56 PM [facility] [place] [facility] Imaging Services [address] [place] [address] Chest PA and Lateral MR#: [id number] Acct: [id number] Name: BRIANNA BENNETT Rep #: [id number] : 1975 F 42 From: Andrés Li MD PCP: Lizeth Wilks DO Status: REG ER Study: Chest PA and Lateral Date of Exam: 05/04/18 Exam# [id number] Ordering Dr: Cody Landa DO STUDY: X-RAY CHEST REASON FOR EXAM: Female, 42 years old. Dyspnea and shortness of breath. TECHNIQUE: PA and lateral views of the chest. COMPARISON: None. FINDINGS: EKG markings are seen. Increased markings are seen in the lingular segment of the left upper lobe. Early lingular infiltrate should be ruled out. Follow-up is recommended. There is no demonstrated pleural abnormality. Normal size heart. Normal mediastinum and julia. Normal visualized pulmonary arteries. Normal visualized aortic arch and descending thoracic aorta. Normal visualized thoracic spine. Normal visualized ribs, clavicles, and shoulders. There is no demonstrated abnormality of the visualized soft tissue structures of the upper abdomen. RAD/Chest PA and Lateral IMPRESSION: Findings suggestive of early lingular infiltrate. Electronically Signed: Andrés Li MD at 14:57 EDT Tel [phone], Service support , CC: Cody Landa DO; Lizeth Wilks DO Recruiting Manager: Signed CBC W/DIFF, AUTOMATED Collected: 05/04/2018 Status: F Source: [place] 1:40 PM [facility] [place] TYPE CODE TESTS RESULT OUT OF RANGE REFERENCE UNITS LAB L100.1000 4.4-11.0 K/mm3 High WBC 11.6 LAB L100.1200 4.2-5.4 M/mm3 Normal RBC 5.40 LAB L100.1300 12.0-15.0 g/dl High HGB 15.7 LAB L100.1400 37-47 % High HCT 47.3 LAB L100.1500 81-99 fL Normal MCV 87.6 LAB L100.1600 27.0-32.0 pg Normal MCH 29.1 LAB L100.1700 32-36 g/gl Normal MCHC 33.2 LAB L100.1810 11.6-14.6 % Normal RDW CV 13.4 LAB L100.1820 35.1-43.9 fl Normal RDW SD 42.7 LAB L100.1900 150-450 K/mm3 Normal PLT 272 LAB L100.2000 6.2-12.0 fl Normal MPV 9.8 LAB L100.2100 47-70 % Normal NEUT% 64.2 LAB L100.2200 19-41 % Normal LY% 26.3 LAB L100.2300 0-10 % Normal MONO% 5.9 LAB L100.2400 0-5 % Normal EO% 2.8 LAB L100.2500 0-1 % Normal BASO% 0.6 LAB L100.2550 0.0-0.9 % Normal IM GRAN % 0.200 Result Comment: IG% - Immature Granulocytes (promyelocytes, myelocytes and metamyelocytes) > 1% indicates that a LEFT SHIFT is Present. LAB L100.2620 2.0-7.7 X10 3/uL Normal Absolute Neut 7.4 LAB L100.2720 0.83-4.51 X10 3/ul Normal Absolute Lymph 3.04 Performed By: #### L100.0100 #### [facility] [address] [place], [place], [address] D-DIMER QUANTITATIVE Collected: 05/04/2018 Status: F Source: [place] (DVT/PE) 1:40 PM [facility] [place] TYPE CODE TESTS RESULT OUT OF RANGE REFERENCE UNITS LAB L300.8000 0.27-0.49 FEU/ug/m Normal D-DIMER 0.44 QUANT Result Comment: NORMAL D-Dimer level (<0.50) indicates no DVT or PE. Performed By: #### L300.8000 #### [facility] [address] [place], [place], [address] BASIC METABOLIC Collected: 05/04/2018 Status: F Source: [place] PROFILE (BMP) 1:40 PM [facility] [place] TYPE CODE TESTS RESULT OUT OF RANGE REFERENCE UNITS LAB L501.0100 74-106 mg/dL Normal GLU 101 Result Comment: Fasting Glucose result from 100 to 125 mg/dL suggests IMPAIRED HOMEOSTASIS per A.D.A. criteria. Please note revised GLUCOSE reference range effective 2017. LAB L501.1000 7-18 mg/dL Normal BUN 15 LAB L501.1100 0.55-1.02 mg/dL Normal CREAT,SERUM 0.63 Result Comment: The validity of the calculated GFR AND GFRAA in patients over 70 years has not been determined. Clinical correlation is essential. LAB L501.1110 >60 mL/min Normal EST GFR 108 Result Comment: Non- GFR Calc LAB L501.1115 >60 mL/min Normal EST GFR - AA 131 Result Comment: GFR Calc LAB L501.1255 ml/min Normal Estimated CRCL 110.81 LAB L501.1300 10-20 RATIO High BUN/CRE 23.7 LAB L501.2200 8.5-10 mg/dL .1 CA Normal 9.9 LAB L501.5300 136-14 mmol/L 5 NA Normal 138 LAB L501.5600 3.5-5. mmol/L 1 K Normal 3.6 LAB L501.5900 98-107 mmol/L CL Normal 103 LAB L501.6100 21.0-3 mmol/L 2.0 CO2 Normal 29.0 LAB L501.6200 5-15 GAP Normal 6 Performed By: #### L500.2500, L501.4010 #### [facility] [address] [place], [place], [address] TROPONIN-I Collected: 05/04/2018 Status: F Source: [place] 1:40 PM [facility] [place] TYPE CODE TESTS RESULT OUT OF RANGE REFERENCE UNITS LAB L501.4010 <0.045 ng/mL Normal < 0.015 TROPONIN-I Result Comment: TROPONIN-I EXPECTED VALUES <0.045 Negative 0.045 - 0.590 Consistent with Cardiac Damage > OR = 0.600 Critical Value Not every elevated troponin is indicative of OR. These values should be used with clinical judgement in examining the patient's clinical picture for diagnosis. To establish a diagnosis of OR versus myocardial injury, there must be a demonstrated rise and/or fall in the troponin values, in addition to ischemic symptoms, EKG changes, new regional wall motion abnormality, and/or angiographical evidence. PLEASE NOTE: REFERENCE RANGES EDITED 17 Performed By: #### L500.2500, L501.4010 #### [facility] [address] [place], [place], [address] THYROID STIM HORMONE Collected: 05/04/2018 Status: F Source: [place] (TSH) 1:40 PM [facility] [place] TYPE CODE TESTS RESULT OUT OF RANGE REFERENCE UNITS LAB L501.9520 0.358-3.74 uIU/mL Normal TSH 1.29 Performed By: #### L501.9520 #### [facility] [address] [place], [address] 12 LEAD ELECTROCARDIOGRAM Observed: 08/13/2017 Status: F Source: [place] 11:38 AM [facility] [place] [facility] Cardiovascular Services [address] [place] [address] 12 Lead EKG 08/12/17 1147 MR#: [id number] Acct: [id number] Name: BRIANNA BENNETT Rep #: [id number] : 1975 41 From: Cody Barone MD Attending Dr: Irvin Montague DPM Status: PRE SDC Ordering Dr: Irvin Montague DPM Date: 08/12/17 Location: [facility] Sex: F C Admitted: Test Reason : PRE OP Blood Pressure : / mmHG Vent. Rate : 102 BPM Atrial Rate : 102 BPM P-R Int : 158 ms QRS Dur : 078 ms QT Int : 334 ms P-R-T Axes : 060 015 049 degrees QTc Int : 435 ms Sinus tachycardia Possible Left atrial enlargement Possible Lateral infarct (cited on or before 19-OCT-2012) Abnormal ECG Confirmed by CODY BARONE ([id number]), supervising editor trailer JAMAL ADAMS ([id number]) on 08/13/2017 11:38:07 AM Referred By: Irvin Montague Confirmed By:CODY BARONE 08/13/17 1138 Date Cody Barone MD CC: Irvin Montague DPM; Lizeth Wilks DO Signed ALLERGIES ALLERGIES DATE TYPE / CODE NAME / CODE REACTION SEVERITY SOURCE Drug Iodinated Other Unknown [place] 8 Allergy/529886437( Contrast- Oral [facility]) and IV Hospital Dye/[id number] Repository (RXNORM) Drug sulfamethoxazo Hives Unknown [place] 8 Allergy/761131287( le/W887846396( Community SNOM[facility]) RXNORM) Hospital Repository Drug trimethoprim/F Hives Unknown [place] 8 Allergy/502649136( 542991757(RXNO [facility]) RM) Hospital Repository Drug latex/Z0152663 Rash Unknown [place] 8 Allergy/947964107( 21(RXNORM) [facility]) Hospital Repository Miscellaneous sodium Anaphylaxis Unknown [place] 8 Allergy/261688689( phenothol [facility]) Hospital Repository Drug acetaminophen/ Anaphylaxis Unknown [place] 8 Allergy/774829853( P000807371(RXN [facility]) ORM) Hospital Repository ENCOUNTERS ENCOUNTERS ADMIT/DISCHARGE ACCOUNT ADMITTING ENCOUNTER LOCATION SOURCE NUMBER CLASS 06/26/2018/ [id number] [facility] [place] 8 5 [facility] ing:PCURoom: Repository [id number]: 1 06/26/2018 [id number] [facility] BMSBuilding:B [place] 2 [facility] Repository 06/26/2018 [id number] [facility]ulatory BMSBuilding:B [place] 8 [facility] Repository 05/31/2018 [id number] Ambulatory [place] 6 [facility] Hospital ing:MTRAD Repository 05/28/2018 [id number] Ambulatory [place] 8 [facility] Hospital ing:OPBI Repository 05/13/2018 [id number] Ambulatory [place] 9 [facility] Hospital ing:CVS Repository 05/13/2018 [id number] Ambulatory BMSBuilding:W [place] 9 [facility] Repository 05/12/2018/ [id number] Emergency [place] 8 6 [facility] Hospital ing:ED Repository 05/12/2018 [id number] Ambulatory [place] Caro 8 [facility] Hospital ing:PSN Repository 05/12/2018 [id number] Ambulatory BMSBuilding:W [place] 8 [facility] Hospital Repository 05/04/2018/ [id number] Emergency [place] 8 0 [facility] Hospital ing:ED Repository 09/22/2017 [id number] Ambulatory [place] Caro 3 [facility] ing:[facility] Repository 08/12/2017 [id number] Ambulatory BMSBuilding:W [place] 9 [facility] Hospital Repository PAYERS PAYERS ENCOUNTER GUARANTOR PAYER SUBSCRIBER SOURCE 06/26/2018 GINA [id number] Primary Insurance:MED GINA [facility]ITALPolicy SNUREDOB: [facility] [place] Number: [id number] Hospital [address]Fry: 330 [id number] Repository [phone] () Date:3715-29-06LP [address] [address], [place] [address]DE: CHECK WEBSITE 06/26/2018 Secondary NOT GIVENUNK [place] Insurance:SELF PAY [facility] Number: Effective Repository Date:2018-06-26 06/26/2018 GINA [id number] Primary Insurance:MED [facility] SNUREDOB: [place] Number: [id number] Hospital [address]Mxh: 330 [id number] Repository [phone] () Date:5142-95-86YF [address] [address], [place] [address]OH: CHECK WEBSITE 06/26/2018 Secondary NOT GIVENUNK [place] Insurance:SELF PAY [facility] Number: Effective Repository Date:2018-06-26 06/26/2018 GINA [id number] Primary Insurance:MED G[facility] SNUREDOB: [place] Number: [id number] Hospital [address]Iog: 330 [id number] Repository [phone] () Date:9791-10-36WF [address] [address], [place] [address]SG: CHECK WEBSITE 06/26/2018 Secondary NOT GIVENUNK [place] Insurance:SELF PAY [facility] Number: Effective Repository Date:2018-06-26 05/31/2018 GINA [id number] Primary Insurance:MED GINA [place] [facility] SNUREDOB: [place] Number: [id number] Hospital [address]Xla: 330 [id number] Repository [phone] (HP) Date:2819-48-06HO [address] [address], [place] [address]PE: CHECK WEBSITE 05/31/2018 Secondary NOT GIVENUNK Caro Insurance:SELF PAY [facility] Number: Effective Repository Date:2018-05-31 05/28/2018 GINA [id number] Primary Insurance:[facility] TPAPolic SNUREDOB: [facility] [place] Number: [id number] Hospital [address]Fud: 330 [id number] Repository [phone] () Date:2476-83-63ZT [address] [address], [place] [address]KK: CHECK WEBSITE 05/28/2018 Secondary NOT GIVENUNK [place] Insurance:SELF PAY [facility] Number: Effective Repository Date:2018-05-20 05/13/2018 GINA [id number] Primary Insurance:MED GINA RASHIDUNIVERSITY OF UTAH HOSPITALPolic SNUREDOB: [facility] [place] Number: [id number] Hospital [address]Jyd: 330 [id number] Repository [phone] () Date:4836-25-50CW [address] [address], [place] [address]RU: CHECK WEBSITE 05/13/2018 Secondary NOT GIVENUNK Car[place] Insurance:SELF PAY [facility] Number: Effective Repository Date:2018-05-12 05/13/2018 GINA [id number] Primary Insurance:MED GINA [facility] SNUREDOB: [facility] [place] Number: [id number] Hospital [address]Wek: 330 [id number] Repository [phone] () Date:4044-53-26DB [address] [address], [place] [address]IJ: CHECK WEBSITE 05/13/2018 Secondary NOT GIVENUNK Caro Insurance:SELF PAY [facility] Number: Effective Repository Date:2018-05-13 05/12/2018 GINA [id number] Primary Insurance:MED GINA RASHIDBUR[place] [employer] TPAPolicy SNUREDOB: [place] Number: [id number] Hospital [address]Nbn: 330 [id number] Repository [phone] () Date:7918-15-91WI [address] [address], [place] [address]RZ: CHECK WEBSITE 05/12/2018 Secondary NOT GIVENUNK Caro Insurance:SELF PAY [facility] Number: Effective Repository Date:2018-05-12 05/12/2018 GINA [id number] Primary Insurance:MED GINA Magallanes Caro [facility] TPAPolicy SNUREDOB: [facility] [place] Number: [id number] Hospital [address]Jml: 330 [id number] Repository [phone] () Date:9489-38-91IY [address] [address]QGFMJPI[address], [place] [address]TU: CHECK WEBSITE 05/12/2018 Secondary NOT GIVENUNK [place] Insurance:SELF PAY [facility] Number: Effective Repository Date:2018-05-12 05/12/2018 GINA [id number] Primary Insurance:MED GINA Gandaraoster [facility] TPAPolicy SNUREDOB: [facility] [place] Number: [id number] Hospital [address]Gjy: 330 [id number] Repository [phone] () Date:0242-03-69WN [address] [address]PSFFRSC[place], [place] [address]JG: CHECK WEBSITE 05/12/2018 Secondary NOT GIVENUNK [place] Insurance:SELF PAY [facility] Number: Effective Repository Date:2018-05-12 05/04/2018 GINA [id number] Primary Insurance:MED GINA Sona [facility] TPAPolic SNUREDOB: [facility] [place] Number: [id number] Hospital [address]Hfn: 330 [id number] Repository [phone] () Date:8107-38-42XG [address] [address]KHBOQAGFS, [place] [address]AL: CHECK WEBSITE 05/04/2018 Secondary NOT GIVENUNK [place] Insurance:SELF PAY [facility] Number: Effective Repository Date:2018-05-04 09/22/2017 Gina Magallanes [id number] Primary Insurance:MED Gina Palencia [facility] TPAPolicy SnureDOB: [place], [place] Number: [id number] Hospital [address]Xxg: 330 [id number] Repository [phone] () Date:9163-56-35UQ [address] [address], [place] [address]BB: CHECK WEBSITE 09/22/2017 Secondary NOT GIVENUNK [place] Insurance:SELF PAY [facility] Number: Effective Repository Date:2017-07-20 08/12/2017 Gina Magallanes [id number] Primary Insurance:MED Gina Palencia [facility] TPAPolicy SnureDOB: [place], [place] Number: [id number] Hospital [address]Hid: (888) [id number] Repository [phone] () Date:4243-73-91RM [address] [address], [place] [address]VB: CHECK WEBSITE 08/12/2017 Secondary NOT GIVENUNK Car[place] Insurance:SELF PAY [facility] Number: Effective Repository Date:2017-08-12
== END 2018-06-28 10:14 | disposition home or self-care (01) ==
LOC: ED 21:21 → PCU 06-27
PROVIDERS: Internal Medicine; Admitting Provider Internal Medicine; Emergency Provider Emergency Medicine; Family Provider Internal Medicine; PCP Internal Medicine; Visit Provider Internal Medicine
DX: M79.605 Pain in left leg (principal); Z86.711 Personal history of pulmonary embolism; Z79.01 Long term (current) use of anticoagulants; R09.02 Hypoxemia; R07.89 Other chest pain; Z87.891 Personal history of nicotine dependence
CPT/HCPCS: 36415; 71045; 80048; 84484; 85025; 85379; 93005; 93970; 99218; 99283; 99406; A4216; G0378

== ENCOUNTER → 2018-08-20 08:01 | Outpatient (CLI) | payer OTHER, SELFPAY ==
[2018-06-27 01:26] VITALS: BMI 35.4
--- NOTE | 2018-08-20 08:11 | CT_ITS ---
STUDY: CTA CHEST REASON FOR EXAM: Female, 42 years old. PE RADIATION DOSAGE (If Supplied By Facility): CTDIvol = ( 13.24 ) mGy, DLP = ( 649.59 ) mGycm TECHNIQUE: The examination was performed with the intravenous administration of 100 ml of Isovue 370 contrast material. Post-processing of the angiographic images was performed, with multiplanar reformation and 3D reconstruction. Individualized dose optimization techniques were used for this CT. COMPARISON: 05/12/2018 FINDINGS: Small hiatal hernia. Normal enhancement of the main pulmonary artery and right and left pulmonary arteries. Normal enhancement of the bilateral peripheral pulmonary arteries. There is no demonstrated pulmonary embolism. Normal thoracic aorta and visualized great vessels. There is no demonstrated aortic dissection. Normal heart and pericardium. Normal mediastinum. Normal hilar regions. Normal visualized trachea and bronchi. The lungs are well expanded. Normal pulmonary parenchyma. Normal pleura. Normal chest wall structures. Normal osseous structures. Normal visualized upper abdomen. CT/CTA Chest W/WO Contrast IMPRESSION: Normal CTA chest examination, without a demonstrated pulmonary embolism or arterial dissection. Electronically Signed: Eric Benavides MD at 4:30 EST Tel , Service support ,
== END ==
PROVIDERS: Family Provider Internal Medicine; PCP Internal Medicine; Referring Provider Internal Medicine; Visit Provider Internal Medicine
DX: I26.99 Other pulmonary embolism without acute cor pulmonale (principal)
CPT/HCPCS: 71275; Q9967

== ENCOUNTER → 2018-09-03 08:11 | Outpatient (CLI) | payer OTHER, SELFPAY ==
[2018-08-26 10:11] VITALS: BMI 36.6
[2018-08-30 10:33] VITALS: BMI 36.6
--- NOTE | 2018-09-03 08:17 | CT_ITS ---
STUDY: CT ABDOMEN WITHOUT CONTRAST REASON FOR EXAM: Female, 42 years old. Right upper quadrant pain. RADIATION DOSAGE (If Supplied By Facility): CTDIvol = ( 18.65 ) mGy, DLP = ( 815.45 ) mGycm TECHNIQUE: Transaxial images were obtained without intravenous contrast, and oral contrast. Sagittal and coronal images were reconstructed. Individualized dose optimization techniques were used for this CT. COMPARISON: None. FINDINGS: The visualized lung bases are unremarkable. The visualized portions of the heart are within normal limits. Normal liver. Normal gallbladder and extrahepatic biliary system. There is mild splenomegaly. Normal pancreas. Normal bilateral adrenal glands. Normal right kidney. Normal left kidney. Normal visualized stomach. Normal small intestine. The sigmoid colon is underdistended. The colon otherwise appears to be unremarkable on this examination. The appendix is visualized and appears normal. There is atherosclerotic calcification of the abdominal aorta, without a demonstrated aneurysm. Normal inferior vena cava. Normal retroperitoneum. There is a very small umbilical hernia containing fat. The osseous structures are essentially unremarkable. CT/Abdomen WITH ORAL Cont Only IMPRESSION: 1. Mild splenomegaly. 2. No demonstrated acute process. Electronically Signed: Sammy Calderon MD at 8:46 EST Tel , Service support ,
== END ==
LOC: CT 08:12
PROVIDERS: Family Provider Internal Medicine; PCP Internal Medicine; Referring Provider Internal Medicine Medical Oncology; Visit Provider Internal Medicine Medical Oncology
DX: R16.1 Splenomegaly, not elsewhere classified (principal)
CPT/HCPCS: 74150

== ENCOUNTER → 2018-09-08 07:58 | Outpatient (CLI) | payer OTHER, SELFPAY ==
[2018-08-30 10:33] VITALS: BMI 36.6
--- NOTE | 2018-09-08 13:28 | PFT ---
INTRODUCTION: The patient is a 42-year-old female that presents for pulmonary function studies secondary to a diagnosis of shortness of breath. Respiratory therapy reports good patient effort. Bronchodilators were used during testing. INTERPRETATION: Forced expiration spirometry demonstrates no evidence of a large airways obstructive ventilatory defect. There was no significant response to aerosolized bronchodilators, based upon strict ATS criteria. Spirograms are of good quality and plateau normally. Body plethysmography was performed and reveals a decreased TLC to 3.95 L, 71% of predicted, indicative of a mild restrictive ventilatory impairment. The remainder of the lung volumes are symmetrically reduced. Diffusing capacity by single breath CO is mildly reduced as well. IMPRESSION: These pulmonary function studies demonstrate the presence of a mild restrictive ventilatory impairment with a symmetric reduction in diffusing capacity.
== END ==
LOC: PSN 07:59
PROVIDERS: Family Provider Internal Medicine; PCP Internal Medicine; Referring Provider Internal Medicine Critical Care Medicine; Visit Provider Internal Medicine Critical Care Medicine
DX: R06.02 Shortness of breath (principal)
CPT/HCPCS: 94060; 94726; 94729

== ENCOUNTER → 2018-09-13 12:26 | Outpatient (CLI) | payer OTHER, SELFPAY ==
[2018-08-30 10:33] VITALS: BMI 36.6
[2018-09-13 12:54] VITALS: PULSE 100; PULSE 101; PULSE 103; PULSE 104; PULSE 105; PULSE 106; PULSE 97; O2SAT 94; O2SAT 95; O2SAT 96; O2SAT 98
--- NOTE | 2018-09-14 17:24 | PCM.PSN.6M ---
PSN 6 Minute Walk Test - 6 Minute Walk Test 6 Minute Walk Test: 6 Minute Walk Test PSN:6-Minute Walk Test Start: 09/13/18 12:54 Freq: Status: Active Protocol: [id number].[id number] Document 09/13/18 12:54 CHARAN (Rec: 09/13/18 12:56 CHARAN [id number]) 6 Minute Walk Test Date Performed 09/13/18 Time Performed 12:30 Height 5 ft 6.5 in Weight: 230 lb Weight in Pounds 230.[address]: Jaylan Mai Assistive device used: None Pre-test Oxygen Delivery Method Room Air Pulse Ox (%) 98 Pulse Rate (60-100 beats/min) 100 Dyspnea Song Scale (0-10) 0.5 Exertion Song Scale (6-20) 6 1st minute Oxygen Delivery Method Room Air Pulse Ox (%) 96 Pulse Rate (60-100 beats/min) 101 H 2nd minute Oxygen Delivery Method Room Air Pulse Ox (%) 95 Pulse Rate (60-100 beats/min) 104 H 3rd minute Oxygen Delivery Method Room Air Pulse Ox (%) 95 Pulse Rate (60-100 beats/min) 103 H 4th minute Oxygen Delivery Method Room Air Pulse Ox (%) 94 Pulse Rate (60-100 beats/min) 106 H 5th minute Oxygen Delivery Method Room Air Pulse Ox (%) 95 Pulse Rate (60-100 beats/min) 105 H 6th minute Oxygen Delivery Method Room Air Pulse Ox (%) 96 Pulse Rate (60-100 beats/min) 103 H Dyspnea Song Scale (0-10) 2 Exertion Song Scale (6-20) 13 Post-test Oxygen Delivery Method Room Air Pulse Ox (%) 95 Pulse Rate (60-100 beats/min) 97 Full Laps Walked 11 Partial Lap, Number of Tiles Walked 15 Total Distance Walked (ft) 664 - Interpretation Interpretation: The patient ambulated 664 feet over the course of 6 minutes beginning on room air without assistive devices or breaks. Pretesting oxygen saturation was noted to be 98% on room air. With ambulation, the olivia oxygen saturation was 94%. There was evidence of both impaired walk distance and significant exertional oxygen desaturation, suggesting a pulmonary limitation to exercise tolerance. - Recommendations Recommendations: There is no indication for the use of supplemental oxygen at this time.
== END ==
LOC: PSN 12:26
PROVIDERS: Family Provider Internal Medicine; PCP Internal Medicine; Referring Provider Internal Medicine Critical Care Medicine; Visit Provider Internal Medicine Critical Care Medicine
DX: R06.02 Shortness of breath (principal)
CPT/HCPCS: 94618

== ENCOUNTER → 2018-09-27 16:12 | Outpatient (CLI) | payer OTHER, SELFPAY ==
[2018-08-30 10:33] VITALS: BMI 36.6
--- NOTE | 2018-09-27 16:17 | RAD_ITS ---
STUDY: X-RAY - RIGHT FEMUR REASON FOR STUDY: Female, 42 years old. Right thigh pain, no known injury TECHNIQUE: 4 view(s) of the femur. COMPARISON: None. FINDINGS: Normal visualized femur. Normal visualized soft tissue structure. RAD/Femur Min 2 Views IMPRESSION: Normal x-ray examination of the femur. Electronically Signed: Polly Tierney MD at 7:56 EDT , Service support ,
--- NOTE | 2018-09-27 16:30 | RAD_ITS ---
STUDY: X-RAY - LEFT FEMUR REASON FOR STUDY: Female, 42 years old. Hip pain. TECHNIQUE: 4 view(s) of the femur. COMPARISON: None. FINDINGS: Normal visualized femur. Normal visualized soft tissue structure. RAD/Femur Min 2 Views IMPRESSION: Within normal limits x-ray examination of the femur. Electronically Signed: Adriana Klein MD at 18:31 EDT Tel , Service support ,
== END ==
LOC: RAD 16:14
PROVIDERS: Family Provider Internal Medicine; PCP Internal Medicine; Referring Provider Internal Medicine Medical Oncology; Visit Provider Internal Medicine Medical Oncology
DX: M79.651 Pain in right thigh (principal); M79.652 Pain in left thigh
CPT/HCPCS: 73552

== ENCOUNTER → 2018-09-28 20:13 | Outpatient (CLI) | payer OTHER, SELFPAY ==
[2018-08-30 10:33] VITALS: BMI 36.6
== END ==
LOC: SL 20:13
PROVIDERS: Family Provider Internal Medicine; PCP Internal Medicine; Referring Provider Internal Medicine Critical Care Medicine; Visit Provider Internal Medicine Critical Care Medicine
DX: G47.33 Obstructive sleep apnea (adult) (pediatric) (principal)
CPT/HCPCS: 95811

== ENCOUNTER → 2018-10-08 12:37 | Outpatient (CLI) | payer OTHER, SELFPAY ==
[2018-08-30 10:33] VITALS: BMI 36.6
== END ==
PROVIDERS: Family Provider Internal Medicine; PCP Internal Medicine; Referring Provider Nurse Practitioner Acute Care; Visit Provider Nurse Practitioner Acute Care
DX: Z00.00 Encounter for general adult medical examination without abnormal findings (principal)

== ENCOUNTER → 2018-11-19 | Outpatient (CLI) | payer OTHER, SELFPAY ==
[2018-10-13 09:15] VITALS: BMI 35.9
== END | disposition home or self-care (01) ==
LOC: LAB 15:25
PROVIDERS: Family Provider Internal Medicine; PCP Internal Medicine; Referring Provider Internal Medicine Medical Oncology; Visit Provider Internal Medicine Medical Oncology
DX: I26.99 Other pulmonary embolism without acute cor pulmonale (principal)

== ENCOUNTER 2019-01-28 15:03 | Emergency (ER) | payer OTHER, SELFPAY ==
[2018-10-13 09:15] VITALS: BMI 35.9
[2019-01-28 15:04] VITALS: BP 152/85; PULSE 103; RESP 15; TEMP 35.8; O2SAT 98; BMI 36.3
--- NOTE | 2019-01-28 15:17 | VDLE_ITS ---
Reason For Study: SWELLING Procedure LEFT Exam performed portable in ED. GSV is normal. A preliminary report was called and/or faxed CFV is compressible, spontaneous, phasic, to ED. competent, and demonstrates normal augmentation. FV is compressible, spontaneous, phasic, competent and demonstrates normal augmentation. POP V is compressible, spontaneous, phasic, competent and demonstrates normal augmentation. T/P Trunk is compressible. PTV is compressible. LT PerV is compressible. Interpretation Summary Deep veins of the left lower extremity are patent and compressible segmentally. There is no evidence of left lower extremity deep vein thrombosis. Valvular competence appears intact within the proximal deep venous system on the left . The left greater saphenous vein appears patent and compressible segmentally. Ordering Physician: Bradley Marshall Referring Physician: CHERELLE WILKS Performed By: Palak Ramírez, STELLA, RVT
--- NOTE | 2019-01-28 15:18 | ED.DCSUM_ITS ---
History of Present Illness Chief Complaint: Edema Detail of Chief Complaint: Left lower extremity pain and swelling Onset: Days Context: Sudden Onset Timing: Continuous Quality: Pain Location: Popliteal fossa and thigh left Current Severity: Mild Maximum Severity: Severe Worsened by: Nothing Relieved by: Nothing Associated Symptoms: No associated shortness of breath or chest pain Narrative: Patient is a middle-age woman with prior history of PE x2 and hypercoagulable state who had recent trip to [place] and presents for evaluation of DVT left lower extremity. She states she is on Eliquis. She states she is compliant. Because she has persistent swelling and pain concerned she may have a DVT. She denies fever, chills night sweats. There is no history of trauma. She states both lower extremities were swollen. The left remains swollen. She denies history of DVT. Prior similar symptoms: No Recent Illness/Hospitalization: No - Past Medical History (1) History of pulmonary embolism Status: Chronic (2) KELSIE (obstructive sleep apnea) Status: Chronic Comment: CPAP 12 cmH2O (3) Obesity (BMI 30-39.9) Status: Chronic (4) Splenomegaly Status: Chronic (5) Stage 2 moderate COPD by GOLD classification Status: Chronic Comment: FEV1 78% of predicted Past Medical History - Allergies and Home Meds Allergies/Adverse Reactions: Allergies acetaminophen Allergy (Severe, Verified 01/28/19 15:09) Anaphylaxis Iodinated Contrast- Oral and IV Dye [CONTRASTS] Allergy (Severe, Verified 01/28/19 15:09) Other felt like fire, throat felt like a rock, difficulty breathing CAN HAVE CONTRAST IF HAS PRE-MEDS latex Allergy (Verified 01/28/19 15:09) Rash sulfamethoxazole [From Bactrim] Allergy (Verified 01/28/19 15:09) Hives trimethoprim [From Bactrim] Allergy (Verified 01/28/19 15:09) Hives sodium phenothol Allergy (Uncoded 01/28/19 15:09) Anaphylaxis Primary Care Physician: Lizeth Whittington DO [Primary Care Provider] - Prior records reviewed: Yes Surgical History: noncontributory Lives: Spouse/ Significant Other, With Family Smoking Status: Former smoker Alcohol: Rare Drugs: None Review of Systems General: Denies: Chills, Fever, Sweats Eyes: Denies: Visual changes - bilaterally, Blurred Vision - bilaterally, Diplopia ENT: Denies: Rhinorrhea, Sore throat Cardiovascular: Reports: Chest pain - Chronic since PE. Denies: Palpitations, Heart racing Respiratory: Reports: Dyspnea - Chronic, Dyspnea on exertion - Since he has been excessive. Denies: Cough, Sputum Gastrointestinal: Denies: Abdominal pain, Nausea, Vomiting, Diarrhea, Melena, Hematochezia Genitourinary: Denies: Dysuria, Hematuria, Frequency Musculoskeletal: Reports: Swelling, Extremity Pain. Denies: Myalgias, Arthralgias, Neck pain, Back pain Skin: Denies: Rash, Wounds Neurological: Denies: Headache, Weakness, Numbness Hematologic: Denies: Easy bruising, Easy bleeding Physical Exam Vital Signs/Narrative: Vital Signs Temp Pulse Resp BP Pulse Ox 01/28/19 15:04 96.4 F L 103 H 15 152/85 H 98 Inital Vital Signs reviewed: Yes General: Well nourished, Well developed, No Acute Distress Head: Normocephalic, Atraumatic Eyes: Perrl, EOMI ENT: Moist mucous membranes, No rhinorrhea Neck: Supple, Nontender Cardiovascular: Regular rate, Regular rhythm, No murmurs Respiratory: No distress, CTA bilaterally, Chest nontender Abdomen: Soft, Nontender, Nondistended, Normal bowel sounds Back: Nontender, Normal Inspection Extremities: Edema - Is minimal pitting edema bilaterally. The left lower extremity is swollen compared to the right. There is tenderness to palpation popliteal fossa. Skin: Normal color, No rash, No Trauma. Negative for: Cyanosis, Diaphoresis, Jaundice Neurological: Alert, Oriented x3, Cranial nerves II-XII grossly intact, Normal Strength, Normal Sensation Psychological: Normal affect, Normal Mood Diagnostic/Tx/Re-eval - Medical Decision Making With history of pulmonary embolus and hypercoagulable state with a swollen painful left lower extremity venous duplex study was obtained to assess for DVT. This may represent dependent edema, muscle strain as well. Need to rule out DVT since well score is 2. Venous duplex study was interpreted as negative for blood clot. ED Disposition - Plan for ED Patient: Disposition: Home or Assisted Living Diagnosis: Lymphedema of left lower extremity, Muscle spasm of left lower extremity Instructions: Lymphedema Referrals: Lizeth Whittington, [Primary Care Provider] - As Needed
[2019-01-28 16:18] VITALS: PULSE 84; RESP 16; O2SAT 98
== END 2019-01-28 16:20 | disposition home or self-care (01) ==
PROVIDERS: Emergency Provider Emergency Medicine; Family Provider Internal Medicine; PCP Internal Medicine
DX: I89.0 Lymphedema, not elsewhere classified (principal); M62.838 Other muscle spasm; R07.9 Chest pain, unspecified; G89.29 Other chronic pain; M79.605 Pain in left leg; G47.33 Obstructive sleep apnea (adult) (pediatric); E66.9 Obesity, unspecified; J44.9 Chronic obstructive pulmonary disease, unspecified; Z86.711 Personal history of pulmonary embolism; Z79.82 Long term (current) use of aspirin; Z79.01 Long term (current) use of anticoagulants; Z87.891 Personal history of nicotine dependence
CPT/HCPCS: 93971; 99282

== ENCOUNTER 2021-03-21 13:44 | Emergency (ER) | payer OTHER, SELFPAY ==
[2021-03-21 13:45] VITALS: BP 160/89; PULSE 102; RESP 16; TEMP 37; O2SAT 97; BMI 37.8
--- NOTE | 2021-03-21 13:50 | EKG12_ITS ---
Test Reason : Blood Pressure : / mmHG Vent. Rate : 101 BPM Atrial Rate : 101 BPM P-R Int : 176 ms QRS Dur : 088 ms QT Int : 356 ms P-R-T Axes : 062 036 036 degrees QTc Int : 461 ms Sinus tachycardia Inferior infarct , age undetermined , cannot be excluded Abnormal ECG , Confirmed by RAFAEL JASON, JASON ([id number]), supervising editor news reel JOSE RANGEL ([id number]) on 03/25/2021 1:07:27 PM Referred By: KALEY Confirmed By:AJSON HALL MD
[2021-03-21 14:38] LABS: Absolute Lymphocyte Count 1.88 X10^3/uL (0.83-4.51); Absolute Neutrophil Count 5.8 X10^3/uL (2.0-7.7); Basophil# 0.06 X10^3/uL; Basophil% 0.7 % (0-1); Eosinophil# 0.17 X10^3/uL; Hematocrit 41.8 % (37-47); Hemoglobin 13.2 g/dL (12.0-15.0); Lymphocyte # 1.88 X10^3/ul (0.83-4.51); Lymphocyte % 22.5 % (19-41); Mean Corp Hgb Conc 31.6 g/dL (32-36); Mean Corpuscular Hgb 27.4 pg (27.0-32.0); Mean Corpuscular Volume 86.7 fL (81-99); Mean Platelet Vol. 9.4 fl (6.2-12.0); Monocyte# 0.46 X10^3/uL; Monocyte% 5.5 % (0-10); NRBC Flagged by Analyzer 0 % (0-5); Neutrophil # 5.77 X10^3/uL (2.7-7.7); Neutrophil % 69.1 % (47-70); Platelet Count 290 K/mm3 (150-450); RBC Distribution Width CV 13.1 % (11.6-14.6); RBC Distribution Width SD 41.2 fl (35.1-43.9); Red Blood Count 4.82 M/mm3 (4.2-5.4); White Blood Count 8.4 K/mm3 (4.4-11.0)
--- NOTE | 2021-03-21 15:16 | ED.RN ---
STATES SHE HAS TO GO HOME AND CHECK ON HER KIDS, WILL RETURN LATER. IV REMOVED AND INTACT
== END 2021-03-21 15:00 | disposition left against medical advice (07) ==
LOC: ED 15:45
PROVIDERS: PCP Internal Medicine
DX: R69 Illness, unspecified (principal); Z53.21 Procedure and treatment not carried out due to patient leaving prior to being seen by health care provider
CPT/HCPCS: 85025; 93005; A4216

== ENCOUNTER → 2021-03-22 15:08 | Outpatient (CLI) | payer OTHER, SELFPAY ==
--- NOTE | 2021-03-22 15:12 | CT_ITS ---
STUDY: CTA CHEST REASON FOR EXAM: Female, 45 years old. Heart murmur chest pain shortness of breath RADIATION DOSAGE (If Supplied By Facility): CTDIvol = ( 12.59 ) mGy, DLP = ( 518.96 ) mGycm TECHNIQUE: The examination was performed with the intravenous administration of IV 75mL Isovue-370. Post-processing of the angiographic images was performed, with multiplanar reformation and 3D reconstruction. Individualized dose optimization techniques were used for this CT. COMPARISON: 20 August 2018 FINDINGS: There is no acute or chronic pulmonary embolism. Aorta is of normal caliber. Lungs are clear. There is no pneumothorax, pulmonary edema or pleural effusions. Mediastinal contents are normal. Osseous structures are intact. Abdominal structures are unremarkable. CT/CTA Chest W/WO Contrast IMPRESSION: 1. No pulmonary embolism 2. Normal chest without acute disease. Electronically Signed: Allan Meadows MD at 17:14 EDT Tel , Service support ,
[2021-03-22 15:20] VITALS: BP 150/89; PULSE 86; RESP 18; TEMP 37; O2SAT 96; BMI 37.1
[2021-03-22] MEDS: DiphenhydrAMINE 50 MG/ML Syringe (15:28)
[2021-03-22] MEDS: MethylPREDNISolone 125 MG/2 ML Vial (15:28)
[2021-03-22] MEDS: 0.9% Saline Lock 10 ML Syringe IV (15:28)
[2021-03-22 16:48] VITALS: BP 146/87; PULSE 94; RESP 16; O2SAT 95
[2021-03-22 17:07] VITALS: BP 124/81; PULSE 94; RESP 16; O2SAT 97
== END ==
PROVIDERS: PCP Internal Medicine; Referring Provider Internal Medicine; Visit Provider Internal Medicine
DX: R06.02 Shortness of breath (principal); R05 Cough; R09.02 Hypoxemia
CPT/HCPCS: 71275; 96374; Q9967

== ENCOUNTER → 2021-04-10 09:15 | Outpatient (CLI) | payer OTHER, SELFPAY ==
--- NOTE | 2021-04-10 15:52 | PFTCOMP_ITS ---
COMPLETE PULMONARY FUNCTION TEST INTERPRETATION Brief HPI: Patient is a 45 year old female, currently under the care of myself, who presents to [facility] for complete pulmonary function tests secondary to diagnosis of COPD. Respiratory therapist reports good effort and reproducible results. Interpretation: Forced expiration spirometry shows a mild large airways obstructive ventilatory defect with an FEV1 of 78% predicted. There is no significant bronchodilator response by strict ATS criteria. Spirograms are of good quality and plateau slowly, indicating slowly emptying areas of the lungs. The respiratory flow volume loop shows decreased expiratory flow rates at high lung volumes consistent with small airways obstruction. Lung volumes by body plethysmography show a normal total lung capacity at 5.23 L, 97% predicted. All other lung volumes are within normal limits. Diffusion capacity by carbon monoxide is normal at 72% predicted. The airway resistance is normal. Compared to previous pulmonary function tests from 09/08/2018, there has been normalization of lung volumes. Impression: Irreversible mild large airways obstructive ventilatory defect with symmetric reduction in diffusing capacity, but some improvements compared to previous.
== END ==
LOC: PSN 09:16
PROVIDERS: PCP Internal Medicine; Visit Provider Nurse Practitioner Acute Care
DX: J44.9 Chronic obstructive pulmonary disease, unspecified (principal)
CPT/HCPCS: 94060; 94726; 94729

== ENCOUNTER → 2021-04-19 07:06 | Outpatient (CLI) | payer OTHER, SELFPAY ==
[2021-04-19 07:38] VITALS: PULSE 101; PULSE 103; PULSE 116; PULSE 87; PULSE 90; PULSE 93; O2SAT 95; O2SAT 96; O2SAT 97
--- NOTE | 2021-04-21 07:51 | WT_ITS ---
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 FIO2 (% Oxygen) 21 Assistive device used: None Pre-test Oxygen Delivery Method Room Air Pulse Ox (%) 96 Pulse Rate (60-100 beats/min) 87 Dyspnea Song Scale (0-10) 0 Exertion Song Scale (6-20) 6 1st minute Oxygen Delivery Method Room Air Pulse Ox (%) 97 Pulse Rate (60-100 beats/min) 103 H 2nd minute Oxygen Delivery Method Room Air Pulse Ox (%) 95 Pulse Rate (60-100 beats/min) 90 3rd minute Oxygen Delivery Method Room Air Pulse Ox (%) 97 Pulse Rate (60-100 beats/min) 101 H 4th minute Oxygen Delivery Method Room Air Pulse Ox (%) 96 Pulse Rate (60-100 beats/min) 93 5th minute Oxygen Delivery Method Room Air Pulse Ox (%) 96 Pulse Rate (60-100 beats/min) 116 H 6th minute Oxygen Delivery Method Room Air Pulse Ox (%) 97 Pulse Rate (60-100 beats/min) 103 H Post-test Oxygen Delivery Method Room Air Pulse Ox (%) 96 Pulse Rate (60-100 beats/min) 90 Dyspnea Song Scale (0-10) 11 Exertion Song Scale (6-20) 2 Full Laps Walked 15 Partial Lap, Number of Tiles Walked 12 Total Distance Walked (ft) 897 Interpretation Interpretation: The patient ambulated 897 feet over the course of 6 minutes beginning on room air without assistive devices. Pretesting oxygen saturation was noted to be 96% on room air. With ambulation, the olivia oxygen saturation was 95%. There was no significant exertional oxygen desaturation. Recommendations Recommendations: There is no indication for the use of supplemental oxygen at this time.
== END ==
PROVIDERS: PCP Internal Medicine; Visit Provider Nurse Practitioner Acute Care
DX: J44.9 Chronic obstructive pulmonary disease, unspecified (principal)
CPT/HCPCS: 94618

== ENCOUNTER 2021-09-04 12:37 | Outpatient (CLI) | payer OTHER, SELFPAY ==
[2021-09-04 12:30] VITALS: PULSE 101; PULSE 102; PULSE 103; PULSE 75; PULSE 87; PULSE 98; O2SAT 93; O2SAT 94; O2SAT 95; O2SAT 99
--- NOTE | 2021-09-05 07:54 | PCM.PSN.6M ---
PSN 6 Minute Walk Test 6 Minute Walk Test 6 Minute Walk Test: 6 Minute Walk Test PSN:6-Minute Walk Test Start: 09/04/21 13:08 Freq: Status: Active Protocol: RESP.6MINW Document 09/04/21 12:30 [facility] (Rec: 09/04/21 13:12 [facility] [id number]) 6 Minute Walk Test Date Performed 09/04/21 Time Performed 12:30 Height 5 ft 6 in Weight: 104.78 kg Weight in Pounds 231.[address]: Dr Mai Assistive device used: None Pre-test Oxygen Delivery Method Room Air Pulse Ox (%) 95 Pulse Rate (60-100 beats/min) 75 Dyspnea Song Scale (0-10) 0.5 Exertion Song Scale (6-20) 6 1st minute Oxygen Delivery Method Room Air Pulse Ox (%) 94 Pulse Rate (60-100 beats/min) 98 2nd minute Oxygen Delivery Method Room Air Pulse Ox (%) 93 Pulse Rate (60-100 beats/min) 103 H 3rd minute Oxygen Delivery Method Room Air Pulse Ox (%) 94 Pulse Rate (60-100 beats/min) 103 H 4th minute Oxygen Delivery Method Room Air Pulse Ox (%) 93 Pulse Rate (60-100 beats/min) 102 H 5th minute Oxygen Delivery Method Room Air Pulse Ox (%) 94 Pulse Rate (60-100 beats/min) 98 6th minute Oxygen Delivery Method Room Air Pulse Ox (%) 95 Pulse Rate (60-100 beats/min) 101 H Dyspnea Song Scale (0-10) 0 Exertion Song Scale (6-20) 11 Post-test Oxygen Delivery Method Room Air Pulse Ox (%) 99 Pulse Rate (60-100 beats/min) 87 Full Laps Walked 19 Partial Lap, Number of Tiles Walked 14 Total Distance Walked (ft) 1135 Interpretation Interpretation: The patient ambulated 1135 feet over the course of 6 minutes beginning on room air without assistive devices. Pretesting oxygen saturation was noted to be 95% on room air. With ambulation, the olivia oxygen saturation was 93%. There was no significant exertional oxygen desaturation. Recommendations Recommendations: There is no indication for the use of supplemental oxygen at this time.
== END 2021-09-04 23:59 | disposition home or self-care (01) ==
PROVIDERS: PCP Internal Medicine; Referring Provider Internal Medicine Critical Care Medicine; Visit Provider Internal Medicine Critical Care Medicine
DX: R06.02 Shortness of breath (principal)
CPT/HCPCS: 94618

== ENCOUNTER 2021-09-12 06:55 | Outpatient (CLI) | payer OTHER, SELFPAY ==
[2021-09-12] MEDS: Methacholine Chloride 18 ml neb kit INHALATION (07:08)
--- NOTE | 2021-09-12 15:38 | BRONCHALL ---
Bronchoprovocation Challenge Bronchoprovocation Challenge Bronchoprovocation Challenge: BRONCHOPROVOCATION STUDY INTERPRETATION Brief HPI: Patient is a 45 year old female, currently under the care of Dr. Mai, who presents to [facility] for a bronchoprovocation study secondary to diagnosis of dyspnea. Respiratory therapist reports good effort and reproducible results. Interpretation: Initial spirometry showed no large airways obstructive ventilatory defect. The patient was then given increasingly concentrated doses of methacholine in a stepwise/standardized fashion, using a modified ATS protocol. The patient?s maximum reduction in FEV1 was 9 percent predicted. Impression: Negative Bronchoprovocation study. This is NOT consistent with the diagnosis of asthma.
== END 2021-09-12 23:59 | disposition home or self-care (01) ==
LOC: PSN 06:56
PROVIDERS: PCP Internal Medicine; Referring Provider Internal Medicine Critical Care Medicine; Visit Provider Internal Medicine Critical Care Medicine
DX: R06.02 Shortness of breath (principal)
CPT/HCPCS: 94070; 95070

== ENCOUNTER 2024-04-19 18:32 | Emergency (ER) | payer OTHER, BC, SELFPAY ==
[2024-04-19 18:33] VITALS: BP 155/85; PULSE 109; RESP 16; TEMP 36.6; O2SAT 98; BMI 36.6
--- NOTE | 2024-04-19 19:01 | CT_ITS ---
EXAM: CT HEAD WITHOUT INTRAVENOUS CONTRAST CLINICAL INDICATION: headache TECHNIQUE: Multiple axial images were obtained of the head without intravenous contrast. This CT exam was performed using one or more of the following dose reduction techniques: automated exposure control, adjustment of the mA and/or kV according to patient size, and/or use of iterative reconstruction technique. COMPARISON: 10/04/2009 FINDINGS: BRAIN AND EXTRA-AXIAL SPACES: Unremarkable. No intra- or extra-axial hemorrhage. No evidence of acute infarct. No intracranial mass or mass effect. There is preservation of the [place]/white matter interface. Posterior fossa structures are unremarkable. Ventricles are appropriate for age. No hydrocephalus. Basal cisterns are patent. BONES/JOINTS: Unremarkable. No discrete lytic or blastic abnormalities. SINUSES: Unremarkable as visualized. Clear. MASTOID AIR CELLS: Unremarkable. Clear. ORBITS: Visualized globes, extraocular muscles, optic nerves and retrobulbar fat appear unremarkable. CT/Brain/Head without Contrast IMPRESSION: Negative head/brain CT without intravenous contrast. Electronically Signed: Sunny Simon MD at 19:49 EDT ,
--- NOTE | 2024-04-19 19:04 | EDS_ITS ---
HPI History of Present Illness Chief Complaint: Head Injury Detail of Chief Complaint: Head injury Informant: patient Narrative Narrative: Patient presents to the emergency department with complaint of a head injury. 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 No loss of consciousness. Patient is on Eliquis and had a severe headache yesterday. Headache now improved but still there and rates it about 2 or 3 out of 10. Patient also noticed some redness to the right eye and came in for evaluation today. She has had no nausea or vomiting. She denies any vision changes. Patient on Eliquis for history of blood clotting disorder [facility] Medical History (Updated 04/19/24 @ 20:[address] Devi Cox, ) KELSIE (obstructive sleep apnea) Nicotine dependence, cigarettes, in remission SOB (shortness of breath) History of pulmonary embolism calcified tumor of foot chronic idiopathic angioedema SOB (shortness of breath) Tachycardia Heart murmur Sleep apnea History of ulcer disease Peanut allergy Fibromyalgia TIA (transient ischemic attack) Migraine Home Medications ?Medication ?Instructions ?Recorded ?Last Taken ?Type multivitamin 1 tab PO DAILY 05/12/18 Unknown History epinephrine 0.3 mg/0.3 mL 0.3 mg IM Q10-15M PRN Anaphylaxis 08/23/18 Unknown History injection, auto-injector (EpiPen 2-Bob) apixaban 5 mg tablet (Eliquis) 5 mg PO BID 02/16/19 Unknown History ascorbic acid 1,000 1 ea PO TID 03/22/21 Unknown History my-dfqbscenguqa-cjxnrrid powder effervescent pack (Emergen-C) cholecalciferol (vitamin D3) 125 250 mcg PO DAILY 03/22/21 Unknown History mcg (5,000 unit) tablet (Vitamin D3) lisinopril 10 mg tablet 10 mg PO DAILY 03/22/21 Unknown History buspirone 15 mg tablet 15 mg PO BID 08/12/22 Unknown History citalopram 20 mg tablet (Celexa) 20 mg PO DAILY 08/12/22 Unknown History dextroamphetamine-amphetamine 10 10 mg PO DAILY 08/12/22 Unknown History mg tablet (Adderall) albuterol sulfate 90 mcg/actuation 2 inh inhalation Q4H 04/19/24 Unknown History breath activated powder inhaler Allergy/AdvReac Type Severity Reaction Status Date / Time Iodinated Contrast Media Allergy Severe Other Verified 04/19/24 18:36 (CONTRASTS) cinnamon Allergy Anaphylaxis Verified 04/19/24 18:36 latex Allergy Rash Verified 04/19/24 18:36 sulfamethoxazole (From Allergy Hives Verified 04/19/24 18:36 Bactrim) thiopental (From Pentothal) Allergy Anaphylaxis Verified 04/19/24 18:36 trimethoprim (From Bactrim) Allergy Hives Verified 04/19/24 18:36 Family History (Reviewed 01/24/22 @ 10:52 by Monique Peters INFORMATION STRATEGIST, INFORMATION STRATEGIST-C) Mother Fibromyalgia Heart disease Hypercholesterolemia Lymphoma Hypertension Thyroid disorder Grandmother Diabetes Heart disease Hypercholesterolemia Hypertension Thyroid disorder Uncle CLL (chronic lymphocytic leukemia) Unknown Clotting disorder Unknown DVT (deep venous thrombosis) Surgical History (Updated 04/19/24 @ 19:47 by Reanna Delgado) Hx of cataract surgery H/O colonoscopy History of placement of ear tubes History of dilatation and curettage History of tubal ligation History of hysterectomy Social History (Reviewed 01/24/22 @ 10:52 by Monique Peters INFORMATION STRATEGIST, INFORMATION STRATEGIST-C) household members: family pets and animals: Yes pets and animals: cat(s) and dog(s) Smoking Status: Former smoker quit date: 05/12/18 pack-years: 30 alcohol intake: never substance use type: does not use ROS ROS ED Review of Systems ROS Unobtainable: other Constitutional Constitutional ED: Reports lethargy; Denies chills, fever(s), sweats or weight loss Eyes Eyes: Reports other Details: Redness to right eye ; Denies blurry vision, change in vision or diplopia ENT ENT ED: Denies rhinorrhea or sore throat Cardiovascular Cardiovascular: Denies chest pain, orthopnea or racing heartbeat Respiratory/Chest Respiratory/Chest: Denies cough, dyspnea, dyspnea on exertion, orthopnea or sputum Gastrointestinal Gastrointestinal: Denies abdominal pain, diarrhea, nausea or vomiting Genitourinary Genitourinary ED: Denies dysuria, hematuria or urinary frequency Musculoskeletal Musculoskeletal: Denies arthralgias, back pain, myalgias or neck pain Integumentary Denies abscess, Abrasions or rash Neurologic Neurologic: Reports headache(s); Denies weakness Psychiatric Psychiatric: Denies anxiety, depression or suicidal thoughts Endocrine Endocrinology: Denies polydipsia, polyphagia or polyuria Hematologic/Lymphatic Hematologic/Lymphatic: Denies easy bleeding, easy bruising or lymphadenopathy Allergic/Immunologic Allergic/Immunologic ED: Denies mouth swelling, tongue swelling or urticaria EXAM Physical Exam Const Vital Signs: 04/19/24 18:33 04/19/24 19:46 Temperature 98 F 98.0 F Temperature Source Oral Pulse Rate 109 H Respiratory Rate 16 Respiratory Effort Normal Non-Labored Respiratory Depth Normal Respiratory Pattern Normal Blood Pressure 155/85 H Blood Pressure Mean 108 Pulse Ox 98 98 Oxygen Delivery Method Room Air Room Air Positive well nourished and well developed General Appearance ED: well developed and NAD HEENT Reports TM's clear and moist mucous membranes HEENT Narrative: No external evidence of trauma to her head. normocephalic and atraumatic; Negative for trauma or tenderness Tympanic Membrane ED: Yes TM's clear Eyes PERRL and EOMs intact bilaterally General Eye ED: Yes other Other Details: Patient has a small subconjunctival hemorrhage to the right eye lateral aspect near the limbus. ; Negative for pale conjunctiva or scleral icterus Neck no lymphadenopathy, supple and no JVD General: Negative for tenderness Chest Wall inspection of chest normal and palpation of chest normal Chest: Negative for tenderness Resp normal respiratory effort and clear to auscultation bilaterally Effort and Inspection: Negative for respiratory distress or pain with movement Auscultation: Negative for rhonchi, wheezes or diminished lung sounds Cardio regular rate, regular rhythm, S1 normal heart sound, S2 normal heart sound and no murmurs Peripheral Pulses: pulses 2+ throughout GI normal to inspection, nondistended, normoactive bowel sounds, soft to palpation, non-tender, non-distended and no masses Back/Spine no CVA tenderness and no thoracic nor lumbar tenderness Extremity normal to inspection General Extremety ED: Negative for edema General Extremity: Negative for edema Neuro oriented x3, CN's II-XII intact bilaterally, no sensory deficits noted and gait normal Sensorium / Orientation: awake, alert, oriented to person, oriented to place and oriented to time Motor Exam: strength 5/5 throughout and strength abnormal Psych mental status grossly normal Skin no rashes or lesions noted and no wounds MDM MDM MDM Narrative Medical decision making narrative: Patient with head injury that occurred yesterday. She is anticoagulated with El iquis. She has history of massive PEs. History of clotting disorder. Patient tells me there is no name for the clotting disorder. She has a subconjunctival hemorrhage to the right eye. Continues to have a headache. CT scan of the brain without contrast was unremarkable. At this point discussed with patient results and given the subconjunctival hemorrhage had a small discussion regarding discontinuing the Eliquis versus continuing on it. Is been more than 24 hours and the subconjunctival hemorrhage is quite small. I feel there is more risk with discontinuing the Eliquis then with remaining on it. She is advised to observe the area of redness to the right eye and return if increased pain, redness, swelling, or condition should worsen. [facility] 5 [facility]. Radiography Diagnostic Testing: Clinical Impression(s) from Imaging Studies Brain CT 04/19/24 19:01 IMPRESSION: Negative head/brain CT without intravenous contrast. Electronically Signed: Sunny Simon MD at 19:49 EDT , Discharge Plan Triage Chief Complaint: Head Injury Other Complaint: Eye Problem ED Provider: Devi Cox Dx/Rx/DC Orders Clinical Impression: CHI (closed head injury), Subconjunctival hemorrhage Instructions: ED Concussion, ED Head Injury (Adult), ED Subconjunctival Hemorrhage Prescriptions: No Action epinephrine [EpiPen 2-Bob] 0.3 mg/0.3 mL auto-injector 0.3 mg IM Q10-15M PRN (Reason: Anaphylaxis) Eliquis 5 mg tablet 5 mg PO BID dextroamphetamine-amphetamine [Adderall] 10 mg tablet 15 mg PO TID citalopram [Celexa] 20 mg tablet 20 mg PO DAILY buspirone 15 mg tablet 15 mg PO BID multivitamin 1 EACH tablet 1 tab PO DAILY lisinopril 10 mg Tablet 10 mg PO DAILY Emergen-C 1,000 mg Powder Effervescent In Packet 1 ea PO TID cholecalciferol (vitamin D3) [Vitamin D3] 125 mcg (5,000 unit) Tablet 250 mcg PO DAILY albuterol sulfate 90 mcg/actuation aerosol powdr breath activated 2 inh inhalation Q4H Primary Care Provider: Lizeth Whittington Referrals: [facility] [[facility]] - 3-5 Days Lizeth Whittington DO [Primary Care Provider] - Print Language: Barbadian Disposition Disposition: Home, Self Care
[2024-04-19 19:46] VITALS: TEMP 36.7; O2SAT 98
--- NOTE | 2024-04-19 19:52 | ED.RN ---
Pt has had prior Left cataract surgery in 01/2024, Right cataract surgery in 02/2024 and Left tear duct surgery in 2017.
[2024-04-19 20:23] VITALS: BP 137/84; PULSE 72; RESP 18; TEMP 36.9; O2SAT 98
[2024-04-19 20:33] VITALS: BP 137/84; PULSE 72; RESP 18; O2SAT 98
--- NOTE | 2024-04-19 20:34 | ED.RN ---
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 Patient advised to go to [facility] in the morning to determine if drug screening is required. MD notified.
== END 2024-04-19 20:37 | disposition home or self-care (01) ==
PROVIDERS: Emergency Provider Emergency Medicine; PCP Internal Medicine; Visit Provider Emergency Medicine
DX: H11.31 Conjunctival hemorrhage, right eye (principal); S09.90XA Unspecified injury of head, initial encounter; Y04.8XXA Assault by other bodily force, initial encounter; Y99.0 Civilian activity done for income or pay; Z79.01 Long term (current) use of anticoagulants; Z79.899 Other long term (current) drug therapy; Z87.891 Personal history of nicotine dependence
CPT/HCPCS: 70450; 99284